=== PATIENT | female | born 1950 | race Caucasian/White ===

== ENCOUNTER → 2020-01-08 09:25 | Outpatient (BNVA) | payer MEDICARE, OTHER, SELFPAY | PROVIDERS: Family Provider Nurse Practitioner Family; Visit Provider Nurse Practitioner Family | DX: I10 Essential (primary) hypertension (principal); J01.40 Acute pansinusitis, unspecified; F41.8 Other specified anxiety disorders; E78.5 Hyperlipidemia, unspecified; M81.0 Age-related osteoporosis without current pathological fracture | CPT/HCPCS: 80053; 80061; 84443; 85025 ==

== ENCOUNTER → 2020-08-27 11:05 | Outpatient (BNVA) | payer MEDICARE, OTHER, SELFPAY | PROVIDERS: Family Provider Nurse Practitioner Family; PCP Nurse Practitioner Family; Visit Provider Nurse Practitioner | DX: R10.9 Unspecified abdominal pain (principal); I10 Essential (primary) hypertension; E78.5 Hyperlipidemia, unspecified; F41.8 Other specified anxiety disorders; Z87.891 Personal history of nicotine dependence | CPT/HCPCS: 71046; 74018; 80053; 80061; 82607; 84443; 85025 ==

== ENCOUNTER → 2020-08-29 09:22 | Outpatient (BNVA) | payer MEDICARE, OTHER, SELFPAY | PROVIDERS: Family Provider Nurse Practitioner Family; PCP Nurse Practitioner Family; Visit Provider Nurse Practitioner | DX: R73.9 Hyperglycemia, unspecified (principal); I10 Essential (primary) hypertension; R06.02 Shortness of breath; R60.9 Edema, unspecified; I35.0 Nonrheumatic aortic (valve) stenosis | CPT/HCPCS: 81003; 83036; 86705; 86706; 86709; 86803; 87340 ==

== ENCOUNTER → 2020-09-04 13:43 | Outpatient (BNVA) | payer MEDICARE, OTHER, SELFPAY | PROVIDERS: Family Provider Nurse Practitioner Family; PCP Nurse Practitioner Family; Referring Provider Nurse Practitioner; Visit Provider Internal Medicine | DX: E05.90 Thyrotoxicosis, unspecified without thyrotoxic crisis or storm (principal); M81.0 Age-related osteoporosis without current pathological fracture; R73.03 Prediabetes; R79.89 Other specified abnormal findings of blood chemistry | CPT/HCPCS: 99204 ==

== ENCOUNTER 2020-09-04 14:17 | Outpatient (CLI) | payer MEDICARE, OTHER, SELFPAY ==
[2020-09-04 15:33] LABS: Free T4 Free Thyroxine 4.29 ng/dL (0.82-1.77)
[2020-09-05 09:52] LABS: T3 Total 484 ng/dL (76-181)
[2020-09-05 15:51] LABS: Thyroglobulin AB <1 IU/mL (< or = 1); Thyroid Peroxidase Antobodies 2 IU/mL (<9)
[2020-09-10 22:38] LABS: TSH Receptor Binding Antibody 10.14 IU/L (< OR = 2.00)
== END 2020-09-04 14:18 | disposition home or self-care (01) ==
LOC: LAB 14:21
PROVIDERS: PCP Nurse Practitioner; Visit Provider Internal Medicine
DX: E05.90 Thyrotoxicosis, unspecified without thyrotoxic crisis or storm (principal); R79.89 Other specified abnormal findings of blood chemistry
CPT/HCPCS: 83516; 84439; 84480; 86376; 86800

== ENCOUNTER → 2020-09-09 14:27 | Outpatient (BNVA) | payer MEDICARE, OTHER, SELFPAY | PROVIDERS: PCP Nurse Practitioner; Visit Provider Nurse Practitioner | DX: R60.9 Edema, unspecified (principal); I35.0 Nonrheumatic aortic (valve) stenosis | CPT/HCPCS: 83880 ==

== ENCOUNTER 2020-09-10 09:28 | Outpatient (CLI) | payer MEDICARE, OTHER, SELFPAY ==
--- NOTE | 2020-09-10 | USCV_ITS ---
Bijal Alegria Age: 70 Gender: F : 1950 Exam Date: 09/10/2020 10:09 Ordering Phys: Juan Savage MD ([email or web address]) Technologist: Iliana Moreau Exam Location: [facility] [place] Indication: Nonrheumatic aortic valve stenosis BP: 131 / 83 HR: 74 Rhythm: Sinus Technical Quality: Adequate MEASUREMENTS (Male / Female) Normal Values 2D ECHO LV Diastolic Diameter PLAX 4.8 cm 4.2 - 5.9 / 3.9 - 5.3 cm LV Systolic Diameter PLAX 3.9 cm LV Chamber Size 5.2 cm IVS Diastolic Thickness 1.4 cm 0.6 - 1.0 / 0.6 - 0.9 cm IVS Systolic Thickness 1.6 cm LVPW Diastolic Thickness 1.0 cm 0.6 - 1.0 / 0.6 - 0.9 cm LVPW Systolic Thickness 1.2 cm RV Chamber Size 3.5 cm LVOT Diameter 2.0 cm LV Ejection Fraction 2D Teich 38.6 % LV Ejection Fraction MOD 2C 34.5 % LV Ejection Fraction 2C AL 34.9 % LA Diameter 4.3 cm LA Width 4.0 cm LA Height 4.1 cm RA Width 3.1 cm RA Height 4.0 cm Aorta at Sinotubular Diameter 1.8 cm M-MODE LV Diastolic Diameter MM 5.3 cm 4.2 - 5.9 / 3.9 - 5.3 cm LV Systolic Diameter MM 4.2 cm LV Ejection Fraction MM Teich 43.6 % IVS Diastolic Thickness MM 0.9 cm 0.6 - 1.0 / 0.6 - 0.9 cm IVS Systolic Thickness MM 1.1 cm LVPW Diastolic Thickness MM 1.5 cm 0.6 - 1.0 / 0.6 - 0.9 cm LVPW Systolic Thickness MM 1.9 cm RV Diastolic Diameter MM 1.7 cm Aortic Annulus Diameter 2.4 cm LA Ao Ratio MM 1.8 MV E Point Septal Separation 1.0 cm DOPPLER AV Peak Velocity 346.3 cm/s LVOT Peak Velocity 72.0 cm/s AV Area Cont Eq vti 0.6 cm squared AV Area Cont Eq pk 0.7 cm squared MV Area PHT 5.0 cm squared Mitral E to A Ratio 1.5 MV E' Velocity 66.0 cm/s Mitral E to MV E' Ratio 33.8 Mitral E to LV E' Lateral Ratio 29.9 Mitral E to LV E' Septal Ratio 38.9 TR Peak Velocity 250.5 cm/s TR Peak Gradient 25.1 mmHg TR Mean Velocity 153.9 cm/s TR Mean Gradient 10.2 mmHg TR Velocity Time Integral 64.8 cm TV Peak E Velocity 43.0 cm/s Right Atrial Pressure 8.0 mmHg Pulmonary Artery Systolic Pressu 33.1 mmHg PV Peak Velocity 60.0 cm/s RV Acceleration Time 0.1 s RV Ejection Time 0.3 s RV AcT/ET 0.2 FINDINGS Left Ventricle Mildly dilated left ventricular cavity. Moderate diffuse hypokinesia of the left ventricle with an ejection fraction of 38% Right Ventricle Normal RV size with a slightly diminished ejection fraction Right Atrium Mildly increased right atrial size. Left Atrium Moderately increased left atrial size. Mitral Valve Thickened mitral valve. Mild mitral annular calcification. Moderate mitral valve regurgitation. Aortic Valve Trace to mild aortic valve regurgitation. Multiple regurgitant jets Possibly severe low gradient aortic valve stenosis with a valve area of 0.7 cm squared. Peak velocity of 3.46 m/s. Tricuspid Valve Mild tricuspid valve regurgitation. Pulmonic Valve Mild pulmonary valve regurgitation. Pericardium No pericardial effusion. Aorta Possible large pleural effusion CONCLUSIONS Mildly dilated left ventricular cavity . Moderate diffuse hypokinesia of the left ventricle with an ejection fraction of 38%. Normal RV size with a slightly diminished ejection fraction. Mildly increased right atrial size. Moderately increased left atrial size. Thickened mitral valve. Mild mitral annular calcification. Moderate mitral valve regurgitation. Trace to mild aortic valve regurgitation. Multiple regurgitant jets Possibly severe low gradient aortic valve stenosis with a valve area of 0.7 cm squared. Peak velocity of 3.46 m/s. Mild tricuspid valve regurgitation. Mild pulmonary valve regurgitation. Estimated pulmonary artery peak systolic pressure of 33 mmHg There is no pericardial effusion. Possibly large left-sided pleural effusion There are no intracardiac masses. Compared to the study from 10/02/2019, there is worsening of the LV systolic function and development of pleural effusion Dr Juan Savage MD FACC (Electronically Signed) Final Date: 10 September 2020 18:47 S
== END 2020-09-10 09:29 | disposition home or self-care (01) ==
LOC: RAD 09:34
PROVIDERS: PCP Nurse Practitioner; Visit Provider Internal Medicine Cardiovascular Disease
DX: I08.3 Combined rheumatic disorders of mitral, aortic and tricuspid valves (principal)
CPT/HCPCS: 93306

== ENCOUNTER 2020-09-13 08:06 | Outpatient (CLI) | payer MEDICARE, OTHER, SELFPAY ==
[2020-09-13] MEDS: iohexol 300 mg/mL 50 mL Btl PO (09:22)
--- NOTE | 2020-09-13 09:30 | CT_ITS ---
WS: [id number] CT scan of the chest Without IV contrast, CT scan of the abdomen and pelvis without IV contrast and with oral contrast. Additional two-dimensional coronal and sagittal reconstruction was performed. Clinical Data: History smoking and abdomen pain with increase liver enzymes Comparison: None. DLP: 1345.[address] scans at [facility] use at least one of these dose optimization techniques: automat ed exposure control; mA and/or kV adjustment per patient size (includes targeted exams where dose is matched to clinical indication); or iterative reconstruction. Findings: Chest: Moderate bilateral pleural effusions are present. No nodules or masses are seen. The heart size is enlarged with a small pericardial effusion. There is coronary artery calcification and calcification in the wall of the thoracic aorta. No pneumonia or pneumothorax is seen. The pulmonary arterial system demonstrates no abnormalities or dilatations. There is no axillary or significant mediastinal adenopathy. Minimal osteoarthritis of the thoracic ve rtebral bodies is present. Abdomen/pelvis: . The gallbladder, spleen, adrenal glands and pancreas are normal. The liver is enlarged without cysts , masses or dilated intrahepatic ducts. The kidneys show no hydronephrosis, cysts, masses or renal calculi. The abdominal aorta is normal in size. No appendicitis or diverticulitis is seen. There are numerous sigmoid diverticula. Oral contrast is i n the stomach, small bowel and colon and there is no bowel dilatation. No abscess, adenopathy, ascite s, mass, obstruction or free air is seen. The bladder is unremarkable. The uterus is normal. No inguinal hernia is seen. The lumbar vertebral bodies show minimal osteoarthritic change. CT/CT chest abd pel wo con Impression: 1. Moderate bilateral pleural effusions. 2. Cardiomegaly with small pericardial effusion. 3. Hepatomegaly. 4. Negative for acute intra-abdominal or pelvic abnormalities.
== END 2020-09-13 08:07 | disposition home or self-care (01) ==
LOC: RADWPI 08:11
PROVIDERS: PCP Nurse Practitioner; Visit Provider Nurse Practitioner
DX: R10.9 Unspecified abdominal pain (principal); Z87.891 Personal history of nicotine dependence; J90 Pleural effusion, not elsewhere classified; I51.7 Cardiomegaly; R16.0 Hepatomegaly, not elsewhere classified
CPT/HCPCS: 71250; 74176; Q9967

== ENCOUNTER 2020-09-13 09:36 | Outpatient (CLI) | payer MEDICARE, OTHER, SELFPAY ==
--- NOTE | 2020-09-13 09:41 | XR_ITS ---
WS: [id number] PA and lateral chest, 09/13/2020 Clinical Data: pleural effusion Comparison: PA and lateral chest, 08/27/2020. Findings: There are moderate bilateral pleural effusions which have developed since the last chest x- ray. The heart is enlarged. The aortic arch and descending aorta show calcification and tortuosity. N o nodules or masses are seen. The pulmonary vascularity is not increased. No pneumonia is present. No pneumothorax is seen. XR/XR chest 2V* [id number] Impression: 1. Cardiomegaly. 2. Moderate bilateral pleural effusions.
== END 2020-09-13 09:37 | disposition home or self-care (01) ==
LOC: RADWPI 09:40
PROVIDERS: PCP Nurse Practitioner; Visit Provider Internal Medicine Cardiovascular Disease
DX: I51.7 Cardiomegaly (principal); J90 Pleural effusion, not elsewhere classified
CPT/HCPCS: 71046

== ENCOUNTER → 2020-09-17 11:50 | Outpatient (BNVA) | payer MEDICARE, OTHER, SELFPAY | PROVIDERS: Family Provider Nurse Practitioner Family; PCP Family Medicine; Visit Provider Internal Medicine Cardiovascular Disease | DX: I50.33 Acute on chronic diastolic (congestive) heart failure (principal); I11.0 Hypertensive heart disease with heart failure; I43 Cardiomyopathy in diseases classified elsewhere; R60.9 Edema, unspecified | CPT/HCPCS: 80048; 83880 ==

== ENCOUNTER → 2020-09-19 15:56 | Outpatient (BNVA) | payer MEDICARE, OTHER, SELFPAY | PROVIDERS: PCP Nurse Practitioner; Visit Provider Internal Medicine Cardiovascular Disease | DX: Z11.59 Encounter for screening for other viral diseases (principal) | CPT/HCPCS: 87635 ==

== ENCOUNTER 2020-09-23 09:24 | Observation (INO) | payer MEDICARE, OTHER, SELFPAY ==
[2020-09-19 15:38] LABS: Basophils % 0.7 %; Eosinophils # 0.3 10^3/uL (0.0-0.8); Eosinophils % 5.3 %; Hemoglobin 11.4 g/dL (11.5-15.3); Lymphocytes # 2.3 10^3/uL (0.8-4.8); Lymphocytes % 39.6 %; Mean Corpuscular HGB Conc 30.8 g/dL (30.0-36.0); Mean Corpuscular Hemoglobin 29.2 pg (28.0-34.0); Mean Corpuscular Volume 94.6 fL (81-99); Mean Platelet Volume 10.7 fL (7.4-10.4); Monocytes # 0.5 10^3/uL (0.2-0.9); Monocytes % 9.1 %; Neutrophils # 2.58 10^3/uL (1.8-7.7); Neutrophils % 45.3 %; Nucleated Red Blood Cells % 0 %; Platelet Count 258 10^3/cmm (130-400); Red Blood Count 3.91 10^6/uL (4.1-5.3); Red Cell Distribution Width 13.7 % (12.1-15.1); White Blood Count 5.7 10^3/uL (4.0-10.0)
[2020-09-19 15:55] LABS: Anion Gap 14.7 (5-19); Blood Urea Nitrogen 17 mg/dL (8-23); Calcium 8.8 mg/dL (8.5-10.5); Carbon Dioxide 25 mmol/L (22-29); Chloride 106 mmol/L (98-107); Glomerular Filtration Rate 122.7 mL/min (90-130); Glucose 108 mg/dL (65-115); Osmolality Calculated 296 mOsm/kg (285-295); Potassium 3.7 mmol/L (3.5-5.1); Sodium 142 mmol/L (136-145)
[2020-09-23] VITALS (72 sets, daily range): BP systolic 89–176; BP diastolic 51–112; PULSE 50–121; RESP 10–33; TEMP 36.4–37; O2SAT 87–97; BMI 22.0
--- NOTE | 2020-09-23 06:00 | XACV_ITS ---
Ht: 152 cm Wt: 51 kg BSA: 1.48 m2 Gender: Female : 1950 Any Known Allergies: Ibuprofen Exam Priority: Routine Procedure(s): Procedure Description: Diagnostic procedure Procedure Description: PCI procedure Procedure Description: Left Heart Catheterization Procedure Description: Right Heart Catheterization Procedure Description: Left ventriculography Procedure Description: Cardiac Output Procedure Description: O2 saturation Procedure Description: Drug Eluting Coronary Stent Procedure Description: PTCA Procedure Description: Miscellaneous Procedure Description: ACT Procedure Description: Coronary Angiography Procedure Description: Pressure Wire Diagnostic Cath Status: Elective Diagnostic Findings * The left main is a medium caliber vessel with calcification at the ostium causing around 20% narrowing. * The left anterior descending artery is a medium caliber vessel which appears to wrap around the LV apex minimally. Near to the apex, the artery appears to trifurcate. There is a 60 to 70% narrowing at the ostium of all the trifurcation vessels. The first diagonal branch was found to have around 40% ostial narrowing. Minimal intimal irregularities are noted at the mid to distal segment of the left anterior descending artery. * The left circumflex artery is a medium caliber co-dominant vessel which was found to have mild diffuse intimal irregularities in the mid segment. The first obtuse marginal artery was found to have around 90% ostial narrowing. No other significant stenotic lesions were seen. * The right coronary artery is a medium caliber codominant vessel which was found to have around 80% lesion at the mid segment. Rest of the vessel was found to have mild diffuse intimal irregularities. PCI Indication: New Onset Angina <= 2 months Interventional Findings * First Obtuse Marginal Branch Segment: 90% stenosis treated with AB MINI TREK 2.00X8 RX BALLOON and MDT R KIM 2.25X8 WILMER. 0% residual stenosis, DALIA: 3 flow. * Mid Right Coronary Artery: 80% stenosis treated with AB MINI TREK 2.00X12 RX BALLOON and MDT R KIM 2.75X15 WILMER. 0% residual stenosis, DALIA: 3 flow. Conclusions 1. This is a 70-year-old white female with history of hypertension, presents with progressive shortness of breath. She was found to have severe low gradient aortic valve stenosis with a valve area of 0.7 cm2. Her LV ejection fraction was around 38% by echocardiogram. In view of the aortic valve stenosis, LV dysfunction and congestive heart failure, in order to further evaluate her cardiovascular status, a right and left heart catheterization with right and left coronary angiogram was recommended. The findings are as follows. 2. The left main was found to have a around 20% eccentric ostial narrowing with calcification. The first obtuse marginal branch was found to have around 90% ostial narrowing. The codominant right coronary artery was found to have around 80% lesion at the mid segment. Mild diffuse disease was noted in the other vessels. 3. Right heart catheterization revealed a pulmonary hypertension- PA pressure of 56/20 with a mean of 32 mmHg. The right atrial pressure was 7. The cardiac output by Lin's was 2.45 with an index of 1.7. The LVEDP was 37. The mean gradient across the aortic valve was 28. The peak to peak gradient was 12 mmHg. 4. I discussed and reviewed the cardiac catheterization data with the Dr. Dillard. It was thought to be appropriate to consider PCI of the obtuse marginal and the right coronary artery lesions. We may reevaluate the aortic valve at a later time to decide on further management. 5. First Obtuse Marginal Branch Segment was treated with Balloon and Drug Eluting Stent. 6. Mid Right Coronary Artery was treated with Balloon and Drug Eluting Stent. Recommendations * 1-Return to inpatient for close monitoring and routine cath care 2-Risk factor modification for secondary prevention 3-Statin and aspirin 81 mg life--long, if tolerated 4-Patient was pre-loaded with 600 mg of Plavix, continue Plavix 75mg p.o. daily for at least one year. We will assess at the end of one year again to continue if further or not 5-Continue optimal medical management 6-Follow up with Dr. Savage in four weeks and your primary care in 10 days. Diagnostic RX Recommendation: PCI w/o planned CABG LV EDP: 37 mmHg Left Ventriculography Findings: * LV gram was not performed. Ejection fraction was around 38% by echocardiogram. Pressures Phase:Rest AO : 133 / 61 ( 90 ) @ 2:43:00 AM 142 / 94 ( 88 ) @ 2:44:00 AM 177 / 77 ( 112 ) @ 2:52:00 AM 178 / 70 ( 112 ) @ 2:52:00 AM 147 / 76 ( 109 ) @ 2:53:00 AM 177 / 80 ( 114 ) @ 3:22:00 AM 109 / 57 ( 77 ) @ 3:40:00 AM 140 / 66 ( 93 ) @ 3:58:00 AM 141 / 83 ( 107 ) @ 4:04:00 AM LV : 187 / 11 / @ 2:51:00 AM 188 / 12 / @ 2:52:00 AM RV : 53 / 1 / @ 2:33:00 AM PA : 56 / 20 ( 32 ) @ 2:32:00 AM RA : a wave = v wave = mean = 7 @ 2:34:00 AM Hemodynamic Findings The pulmonary capillary wedge pressure was 22. PA pressure was 56/20 with a mean of 32. RV pressure was 53 the right atrial pressure was 7. The cardiac output by Lin's was 2.45 with an index of 1.7. The aortic peak to peak gradient was 12 with a mean gradient of 28 mmHg. O2 Content Phase:Rest PA : O2 Content O2: 47.3 @ 2:43:00 AM Saturations Phase:Rest AO : 84 @ 2:52:00 AM RA : 51 @ 2:52:00 AM RV : 50 @ 2:44:00 AM PA : 47 @ 2:43:00 AM Cardiac Output Phase:Rest Lin : 2 @ 2:43:00 AM Lin Cardiac Index: 2 @ 2:43:00 AM Valves Phase:DefaultPhase AV : 12.0 @ 9:18:56 AM AV Mean Gradient: 28.0 @ 9:18:56 AM Clinical Evaluation EBL: 5mL-10mL Procedural Details Procedure Consent Obtained. Pre-Procedure Time Out. Identified patient by full name and date of as verbalized by the patient/guarantor. Does the consent match the physician's order: Yes. Accurate & Complete Informed Consent: Yes. Inpatient/Outpatient History & Physical on Chart: Yes. If H&P is completed, is and addenduem needed: N/A; If yes, is the addendum complete: N/A. Visualize and Verify Site with Patient/Guarantor: N/A. Relevant Radiology Images available: Yes. Pre-op teaching completed and patient verbalized understanding. The risks, benefits, and alternatives of sedation and/or procedure were discussed by physician. The patient agrees to continue. Procedure started. Correct patient, site and procedure confirmed by cath team. PERRLA. Strong, equal hand offc spec bilaterally. Lungs clear x 5 lobes. IV Site on Arrival: 18 gauge in the left anticubital. IV Fluids: 0.9% NaCl at KVO. 0 mL infused prior to field laborer. Pre Procedural Pulses: bilateral dorsalis pedis was 2+. Pre Procedural Pulses: left dorsalis pedis was Doppled. Pre Procedural Pulses: right posterior tibial was 2+. Pre Procedural Pulses: bilateral radial was 3+. right groin was prepped with chloroprep then draped in the usual sterile fashion. right radial was prepped with chloroprep then draped in the usual sterile fashion. Physician notified. Baseline sample Acquired. HR: 74 BPM. Equipment: 5F - Radial. Cardiac Cath Pack. ACCorkCRM Manifold Kit Model BT 2000. Heparinized Saline (2 units/mL), 1000 mL bag. Physician arrived. right brachial was prepped with chloroprep then draped in the usual sterile fashion. Physician scrubbed in. Immediate Pre-Procedure Time Out. Correct Patient: Yes; Correct Procedure: Yes; Correct Site: Yes; Correct Patient Position: Yes; Correct Supplies: Yes; Dried Flammable Prep: Yes; Blood Products Available: N/A;. Lidocaine 1% infiltrated to the right groin. Venous access obtained with a micropuncture set. [place]-Flory MON catheter inserted. Inventory is ADILSON Ji Angled .025 180cm. .025 wire inserted. wire out. Oximetry samples were obtained. Normal venous range: 60-85%. Normal arterial range: 95-100%. Pressure measurements obtained. [place]-Flory out. Lidocaine 1% infiltrated to the right radial. Arterial access obtained. A 5 st helenian TIG catheter in over wire. 3 lpm nc placed on pt. Multiple views taken of left coronary artery. Catheter redirected to the RCA. Catheter out. A 5 st helenian JR4 catheter in over wire. Patient's family updated. EDP Sample taken: LV 187/11,37; HR: 73 BPM; SpO2: 91%. Pullback taken: LV 188/12,38; AO 177/77(112); Mean: 28mmHg, Peak to Peak: 12mmHg, SEP: 21sec/min; HR: 74 BPM; SpO2: 92%. Dr. Dillard called. Multiple views taken of right coronary artery. Catheter out. Side port of sheath flushed with Normal Saline to maintain patency. Dr. Dillard arrived. A Suture was successful obtaining hemostatsis at the Right Femoral vein insertion site. Inventory is Cvent XT .[address] 190[address] Str. Guidewire. Dr. Dillard scrubbed in to perform intervention. Patient's family updated. 6 st helenian JR 4 SH guide catheter was inserted over the wire. ACT drawn. Results 182 seconds. Therapeutic limits - pre-heparin administration 90-150 seconds and monitoring heparin during a vascular procedure >250 seconds. Multiple views taken of right coronary artery. [place] guidewire was advanced through the guide catheter to lesion in the mid RCA. Inflation number : 1 A AB MINI TREK 2.00X12 RX BALLOON was prepped and advanced across the Mid RCA , then inflated to 14 ZARINA for 0:20 seconds. Balloon out. Inflation Number : 2 A MDT R KIM 2.75X15 WILMER -Lot Number# [id number] exp 06-11-2022 was prepped and advanced across the Mid RCA. The stent was deployed at 12 ZARINA for 0:17 seconds. Stent balloon out over wire. Results checked. Wire out. Guide catheter out. 6 st helenian XB 3 guide catheter was inserted over the wire. ACT drawn. Results 408 seconds. Therapeutic limits - pre-heparin administration 90-150 seconds and monitoring heparin during a vascular procedure >250 seconds. Multiple views taken of left coronary artery. [place] guidewire was advanced through the guide catheter to lesion in the OM. Unable to cross lesion, guidewire removed. Inventory is TR 180cm Runthrough NS extra floppy 0.014 wire. Runthrough guidewire was advanced through the guide catheter to lesion in the OM. Unable to cross lesion, guidewire removed. BMW guidewire was advanced through the guide catheter to lesion in the OM. Inventory is AB BMW Guide Wire .014 190cm. Multiple views taken of left coronary artery. Inflation number : 1 A AB MINI TREK 2.00X8 RX BALLOON was prepped and advanced across the 1st Ob Yessica , then inflated to 14 ZARINA for 0:24 seconds. Balloon out. Inflation Number : 2 A T R KIM 2.25X8 WILMER -Lot Number# [id number] exp 04-24-2021 was prepped and advanced across the 1st Ob Yessica. The stent was deployed at 12 ZARINA for 0:19 seconds. Stent balloon and wire out. Results checked. Guide catheter out. A TR Band was successful obtaining hemostatsis at the Right Radial artery insertion site. TR band placed. Hemostasis obtained. Sheath(s) sutured into position with 2-0 silk and sterile 4x4's and Op-site applied over the site. No oozing or signs and symptoms of hematoma noted. Post Procedure: Pulses reassessed and unchanged. PERRLA. Strong, equal hand offc spec bilaterally. No VTE prophylaxis required. Total IV fluids: 500 mL. Fluoro: 29:07. Contrast type used: Omnipaque 300 mgI/mL, 500 mL bottle. [id number]. Complications: none. Estimated blood loss: 5mL-10mL. Procedure completed. PCI Indication: New Onset Angina. [facility] Clinical Fraility Score: 4: Vulnerable. Materials Engineering Technician Indications: Worsening Angina. Chest Pain Symptom Assessment: Atypical Angina. Cardiovascular Instability: No. Post-op diagnosis: 2 vessel CAD. Medication's Wasted: Lidocaine 1% = 18 mL. Medication's Wasted: Nitro = 49.6 mg. Medication's Wasted: Heparin = 3000 units. Patient transferred by bed to 1st floor. Vital chart was stopped. Access Site Site: Right Femoral vein Sheath Size: 6 Fr Hemostasis Method: Suture Hemostasis Success: Successful Site: Right Radial artery Sheath Size: 6 Fr Hemostasis Method: TR Band Hemostasis Success: Successful Procedure Medications Start: 7:23 AM Stop: 7:23 AM Medication: Versed Amount: 1 mg Route: I.V. Start: 7:23 AM Stop: 7:23 AM Medication: Fentanyl Amount: 50 mcg Route: I.V. Start: 7:26 AM Stop: 7:26 AM Medication: 0.9% Saline Amount: 250 ml Route: I.V. bolus Start: 7:41 AM Stop: 7:41 AM Medication: Verapamil Amount: 5 mg Route: I.A. Start: 7:41 AM Stop: 7:41 AM Medication: Nitrogylcerin Amount: 200 mcg Route: I.A. Start: 7:42 AM Stop: 7:42 AM Medication: 0.9% Saline Amount: 125 ml/hr Route: I.V. drip Start: 7:49 AM Stop: 7:49 AM Medication: Heparin Amount: 5000 units Route: I.V. Start: 8:22 AM Stop: 8:22 AM Medication: Versed Amount: 1 mg Route: I.V. Start: 8:22 AM Stop: 8:22 AM Medication: Fentanyl Amount: 50 mcg Route: I.V. Start: 8:26 AM Stop: 8:26 AM Medication: Heparin Amount: 3000 units Route: I.V. Start: 8:30 AM Stop: 8:30 AM Medication: Aggrastat 12.5 mg/250 mL Amount: 26 ml Route: I.V. bolus Start: 8:31 AM Stop: 8:31 AM Medication: Aggrastat 12.5 mg/250 mL Amount: 9.4 ml/hr Route: I.V. drip Start: 8:58 AM Stop: 8:58 AM Medication: Nitrogylcerin Amount: 200 mcg Route: I.C. Start: 9:11 AM Stop: 9:11 AM Medication: Plavix Amount: 600 mg Route: P.O. I, the attending physician, have reviewed and verified all procedure medications. Yes, all medications given per verbal order History/Risk Factors Hypertension: Yes Dyslipidemia: Yes Peripheral Arterial Disease (PAD): No Myocardial Infarction (NV): No Obesity: No Renal Disease: No Tobacco Use: Current/Recent(w/in 1 year) Prior Interventions PCI: No CABG: No Valve Surgery: No Report Signatures Interventional Workflow Finalized by Yoan Dillard MD on 10/07/2020 04:39 PM Diagnostic Workflow Finalized by Dr Juan Savage MD [facility] on 09/23/2020 10:00 AM
[2020-09-23] MEDS: diphenhydrAMINE 50 mg Capsule PO (06:26)
--- NOTE | 2020-09-23 07:17 | P.HPUD_ITS ---
Surgery/Procedure H&P Update DATE OF PROCEDURE: September 23, 2020 DATE H&P PERFORMED: 09/17/20 H&P UPDATE INFORMATION: I have reviewed H&P completed within last 30 days, I have examined patient prior to procedure and No changes to prior documentation PREOP DIAGNOSIS: Cardiomyopathy, congestive heart failure, severe PLANNED PROCEDURE: Operation Date: 09/23/20 07:00 Proposed Procedures p Cardiac Catheterization(Bilateral) - Juan Savage MD PATIENT REASSESSED PRIOR TO SEDATION, WITH NO CHANGE NOTED: Yes PHYSICAL EXAM: alert AIRWAY EVAL/ANESTHESIA PLAN: normal airway, see other exam findings, ASA III, Monitored Anesthesia, Local Anesthesia, Risks, benefits & alternatives of sed ation and/or procedure discussed and Patient agrees to continue as planned
--- NOTE | 2020-09-23 10:43 | PC.NURSE ---
[address] Savage with concerns there was no orders or instructions for venous sheath removal instructions from Dr Savage obtain PTT and pull when you can
[2020-09-23 12:04] LABS: Chol HDL Ratio 5.03 mg/dL (0.0-4.40); Cholesterol 191 mg/dL (0-200); HDL Cholesterol 38 mg/dL (60-100); LDL Cholesterol Calculated 134 mg/dL (50-129); LDL HDL Ratio 3.53 RATIO (0.00-3.22); Triglycerides 95 mg/dL (0-150)
[2020-09-23 12:05] LABS: Partial Thromboplastin Time 96.8 SECONDS (23.9-36.7)
[2020-09-23] MEDS: fentaNYL 50 mcg/mL INJ 2mL IVP (14:08)
--- NOTE | 2020-09-23 14:49 | PC.NURSE ---
1322 sheath removal via instructions in previous RN noted sheath removed no hematoma noted pressure held for 20 min continued to have no outward signs of bleeding or other adverse events for 2 min patient assisted with rolling for linen change and upon rolling patient back to supine from log roll patient reported pain in her leg site observed and noted hematoma formation, pressure held for another 15 min hematoma becoming soft patient had episode of vomiting during hold. patient noted pain had became better and continued with linen change site checked again noted to have become hard once again pressure held Dr Savage notified of events and came to bedside Dr Savage holding pressure for and additional 5-[address] Savage to give PRN IVP fentanyl x1 for pain now also verbal instructions given to start IV fluids patient IV found to be occluded upon flushing and prior to administration of pain medication a new IV was obtained x1 attempt other RN called to bedside to take over pressure hold instructed by Dr Savage to hold pressure and additional [address] a 10lb sand bag for 1 hour checking site often for s/s of bleeding. Call to Dr Savage to clarify orders for IV fluid instructions to IV fluid Normal saline at 100ml/hr for 1000 ml then KVO call in 1 hour with status update.
--- NOTE | 2020-09-23 15:46 | PC.NURSE ---
Contacted Dr. Savage with patient status up date and concerns of given due dose of propanolol due to patients HR instructions given to apply pressure dressing to groin; hold dose of propanolol for 1 hour more and if sys blood pressure remains 140 or greater give dose then.
[2020-09-23] MEDS: sodium chloride 0.9% 1,000 ML 100 ML IV (16:38)
[2020-09-23] MEDS: propranolol 20 mg Tablet 10 MG PO ×2 (16:40→20:58)
[2020-09-23] MEDS: methIMAzole 5 MG Tablet PO (17:41)
--- NOTE | 2020-09-23 19:30 | PC.NURSE ---
Rounding: PAtient resting in bed. Alert and oriented. PAtient denies any pain or needs at this time. Pressure dressing in place to R groin. Dressing in place to R wrist clean dry intact no Hematoma noted.
[2020-09-23] MEDS: atorvastatin 40 mg Tablet PO (20:58)
[2020-09-24 00:29] VITALS: BP 141/83; PULSE 78; RESP 25; TEMP 36.6; O2SAT 92
[2020-09-24] MEDS: sodium chloride 0.9% 1,000 ML 30 ML IV (02:21)
[2020-09-24 04:53] VITALS: BP 164/87; PULSE 87; RESP 26; TEMP 36.6; O2SAT 96
[2020-09-24 04:58] LABS: Basophils # 0.1 10^3/uL (0.0-0.1); Basophils % 0.6 %; Eosinophils # 0.4 10^3/uL (0.0-0.8); Hematocrit 36.6 % (37.0-47.0); Hemoglobin 11.4 g/dL (11.5-15.3); Lymphocytes % 33.5 %; Mean Corpuscular HGB Conc 31.1 g/dL (30.0-36.0); Mean Corpuscular Hemoglobin 29.4 pg (28.0-34.0); Mean Corpuscular Volume 94.3 fL (81-99); Mean Platelet Volume 11.1 fL (7.4-10.4); Monocytes # 0.5 10^3/uL (0.2-0.9); Monocytes % 5.5 %; Neutrophils % 55.2 %; Nucleated Red Blood Cells % 0 %; Platelet Count 288 10^3/cmm (130-400); Red Blood Count 3.88 10^6/uL (4.1-5.3); Red Cell Distribution Width 13.8 % (12.1-15.1); White Blood Count 8.9 10^3/uL (4.0-10.0)
--- NOTE | 2020-09-24 05:23 | PC.NURSE ---
END of shift: Patient has rested off and on. Patient has ambulated and site is clean dry and intact. Patient denies any pain. Vitals are stable.
[2020-09-24 05:36] LABS: Blood Urea Nitrogen 17 mg/dL (8-23); Calcium 9.2 mg/dL (8.5-10.5); Carbon Dioxide 22 mmol/L (22-29); Chloride 106 mmol/L (98-107); Glomerular Filtration Rate 122.7 mL/min (90-130); Glucose 102 mg/dL (65-115); Osmolality Calculated 288 mOsm/kg (285-295); Sodium 138 mmol/L (136-145)
[2020-09-24] MEDS: FUROsemide 40 mg Tablet PO (06:08)
[2020-09-24 06:45] LABS: Anion Gap 13.4 (5-19); Potassium 3.4 mmol/L (3.5-5.1)
[2020-09-24 07:14] VITALS: BP 134/70; PULSE 68; RESP 18; TEMP 36.8; O2SAT 93
--- NOTE | 2020-09-24 09:18 | PC.CHAP ---
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 [] Patient/Family/Request visit [] Outpatient visit [] Follow-up visit [] Physician referral [] Code/Alert [x] Routine visit [] Staff referral [] Actively dying [] Patient sleeping [] Family support [] [] Out of room [] Palliative care [] [] Receiving care in room [] Pre-surgical visit [] Trauma [] Long length of stay [] ICU visit [] Other: Relational/Emotional Strength [] Patient feels connected with others/family/visitors/staff [] Distress [] Loneliness/isolation [] Abandonment Spirituality of Patient [] Person of Kristi [] Attends Congregational of their Kristi [] Believes in Prayer [] Reads Bible or Confucianism materials [] There are Spiritual issues to be addressed Electrocardiograph Operator Interventions [x] Prayer [x] Active listening [x] Non-anxious presence [x] Spiritual/emotional support [] Crisis/trauma care [] Spiritual counseling [] Bereavement support [] Provided bereavement packet [] Provided Bible/devotional materials [] Provided toy/stuffed animal, coloring book to patient or family member [] Provided Communion [] Anointing/[place] [] Salvation [x] Completed spiritual assessment [] Other: Impact on Illness or Injury [] Angry [] Fearful [] Anxious [] Often cries [] Exhaustion [] Unable to work [] Unable to attend oriental orthodox [] Unable to walk/stand [] Unable to read [] Unable to drive [] Unable to eat/drink [] Unable to sleep [] Unable to be with family [] Patient intubated [] Other: Summary patient dressed ready to go home... feels so much better Time spent with patient 10 min
--- NOTE | 2020-09-24 09:21 | PC.NURSE ---
patient reports itching patient feels that the gown might be causing her to itch patient assisted with dressing in her own clothes a few moments later patient report itching has increase and a noted rash across entire mid section Dr Savage notified of events instructions given to give 25mg of Benadryl IVP x1 and await to give medications until he can assess patient and chart
[2020-09-24] MEDS: diphenhydrAMINE 50 mg/mL SDV 1mL 25 MG IVP (09:38)
--- NOTE | 2020-09-24 09:54 | PC.NURSE ---
Dr Savage at bedside for assessment verbal instructions given to give 40 mg solu medrol IVP also some orders change instructions given start plavix 75 mg daily starting now dc current orders for aspirin 325 and aspirin 81 mg DC agrostat Start aspirin 162 mg daily decrease losartan dose to 25 mg daily Hold medications for 1 hour after solumedrol administration if rash is fading okayed to given morning meds then if no change in rash call with status update
--- NOTE | 2020-09-24 11:35 | PC.NURSE ---
call from Dr Savage to check on patient reported patient rash is looking better and the itching has decreased also the administration was late on the solumedrol instructions to wait until noon to give morning medications
[2020-09-24 11:44] VITALS: BP 176/88; PULSE 80; RESP 20; TEMP 36.8; O2SAT 95
[2020-09-24] MEDS: fluoxetine 20 mg Capsule PO (12:29)
[2020-09-24] MEDS: potassium chloride ER 10 mEq Tablet PO (12:29)
[2020-09-24] MEDS: methIMAzole 5 MG Tablet PO (12:29)
[2020-09-24] MEDS: propranolol 20 mg Tablet 10 MG PO (12:29)
[2020-09-24] MEDS: levothyroxine 25 mcg Tablet PO (12:29)
[2020-09-24] MEDS: losartan 50 mg Tablet 25 MG PO (12:29)
[2020-09-24] MEDS: aspirin 81 mg EC Tablet 162 MG PO (12:35)
[2020-09-24] MEDS: clopidogrel 75 mg Tablet PO (12:35)
[2020-09-24 13:17] VITALS: PULSE 82; O2SAT 93
--- NOTE | 2020-09-24 15:04 | PM.PN ---
Subjective Subjective: Interval history: Ms. Dsouza underwent a cardiac arrest that yesterday. She had a PCI of the right coronary artery and the obtuse marginal 1 artery. She had an uneventful postprocedure course. Her mean gradient across aortic valve was found to be 28 mmHg. He had a high LVEDP. She was admitted to the hospital for IV hydration. She developed a small hematoma at the venous access site which was resolved with compression. She did have any hematoma or bleeding from the radial arterial pressure site. Medications: Reviewed: Yes Medication Review Details: Current Medications Acetaminophen (Tylenol) 650 mg PO Q6H PRN PRN Reason: MILD PAIN Al Hydrox/Mg Hydrox/Simethicone (Maalox) 30 ml PO Q15M PRN PRN Reason: INDIGESTION Alprazolam (Xanax) 0.25 mg PO TID PRN PRN Reason: ANXIETY Aspirin (Aspirin Ec) 162 mg PO DAILY [facility] Last Admin: 09/24/20 12:35 Dose: 162 mg Documented by: Atorvastatin Calcium (Lipitor) 40 mg PO BEDTIME [facility] Last Admin: 09/23/20 20:58 Dose: 40 mg Documented by: Atropine Sulfate (Atropine) 0.5 mg IVP PRN PRN PRN Reason: Symptomatic bradycardia Fentanyl (Sublimaze) 50 mcg IVP PRN PRN PRN Reason: Prior to sheath removal Last Admin: 09/23/20 14:08 Dose: 50 mcg Documented by: Fluoxetine HCl (Prozac) 20 mg PO DAILY [facility] Last Admin: 09/24/20 12:29 Dose: 20 mg Documented by: Furosemide (Lasix) 40 mg PO QAM [facility] Last Admin: 09/24/20 06:08 Dose: 40 mg Documented by: Sodium Chloride (Sodium Chloride 0.9%) 1,000 mls @ 30 mls/hr IV .Q24H [facility] Last Admin: 09/24/20 02:21 Dose: 30 mls/hr Documented by: Levothyroxine Sodium (Synthroid) 25 mcg PO DAILY [facility] Last Admin: 09/24/20 12:29 Dose: 25 mcg Documented by: Losartan Potassium (Cozaar) 25 mg PO DAILY [facility] Last Admin: 09/24/20 12:29 Dose: 25 mg Documented by: Magnesium Hydroxide (Milk Of Magnesia) 30 ml PO DAILY PRN PRN Reason: CONSTIPATION Methimazole (Tapazole) 5 mg PO BID [facility] Last Admin: 09/24/20 12:29 Dose: 5 mg Documented by: Naloxone HCl (Narcan) 0.1 mg IVP Q2M PRN PRN Reason: RESPIRATORY RATE < 8/MIN Nitroglycerin (Nitrostat) 0.4 mg SUBLINGUAL Q5M PRN PRN Reason: CHEST PAIN Potassium Chloride (Klor-Con 10) 10 meq PO DAILY [facility] Last Admin: 09/24/20 12:29 Dose: 10 meq Documented by: Propranolol HCl (Inderal) 10 mg PO TID [facility] Last Admin: 09/24/20 12:29 Dose: 10 mg Documented by: Temazepam (Restoril) 15 mg PO BEDTIME PRN PRN Reason: INSOMNIA Vitals/I&O/Wt Last Vital Signs Temp 98.2 F 09/24/20 11:44 Pulse 82 09/24/20 13:17 Resp 20 H 09/24/20 11:44 BP 176/88 09/24/20 11:44 Pulse Ox 93 09/24/20 13:17 09/24/20 09/24/20 09/24/20 06:59 14:59 22:59 Intake Total 100 / 100 Balance 100 / 100 Weight last 48 hrs Weight 113 lb Physical Exam Narrative: EXAM NARRATIVE: GENERAL: The patient is alert and oriented times three. Not in any acute distress. HEENT: No significant pallor, icterus or lymphadenopathy.Oral cavity: There are no mucous membrane lesions. NECK: Trachea appears to be central. No masses noted. No JVD or thyromegaly appreciated. RESPIRATORY: Chest is symmetrical. No intercostals muscle retraction or any accessory muscle activation. There is no chest wall tenderness. Breath sounds are heard bilaterally. No rales or rhonchi heard. No evidence of any consolidation. BREASTS: Deferred. HEART: The heart sounds are normal. No S3 or S4. Ejection systolic murmur of grade 4/6 aortic area. No diastolic murmurs. No pericardial rub ABDOMEN: No vessel pulsations or distention. No tenderness. No organomegaly appreciated. Bowel sounds are normally heard. : Deferred. RECTAL: Deferred. LYMPHATIC: No lymphadenopathy noted in the neck or groin. EXTREMITIES: No hematoma the right groin. Good radial pulse on the right side. No edema or cyanosis. No clubbing. Peripheral pulses are palpated in fairly good volume and amplitude MUSCULOSKELETAL: No acute joint deformities or swelling SKIN: There are no significant rashes or ecchymosis NEUROPSYCHIATRIC: The patient is alert and oriented x3. Appears to be in a good mood. No tremors or rigidity noted. Data : 09/24/20 04:15 09/24/20 04:15 Other Labs: Laboratory Last Values WBC 8.9 10^3/uL (4.0-10.0) 09/24/20 04:15 RBC 3.88 10^6/uL (4.1-5.3) L 09/24/20 04:15 Hgb 11.4 g/dL (11.5-15.3) L 09/24/20 04:15 Hct 36.6 % (37.0-47.0) L 09/24/20 04:15 MCV 94.3 fL (81-99) 09/24/20 04:15 MCH 29.4 pg (28.0-34.0) 09/24/20 04:15 MCHC 31.1 g/dL (30.0-36.0) 09/24/20 04:15 RDW 13.8 % (12.1-15.1) 09/24/20 04:15 Plt Count 288 10^3/cmm (130-400) 09/24/20 04:15 MPV 11.1 fL (7.4-10.4) H 09/24/20 04:15 Neut % (Auto) 55.2 % 09/24/20 04:15 Lymph % (Auto) 33.5 % 09/24/20 04:15 [place] % (Auto) 5.5 % 09/24/20 04:15 Eos % (Auto) 5.0 % 09/24/20 04:15 Baso % (Auto) 0.6 % 09/24/20 04:15 Neut # (Auto) 4.90 10^3/uL (1.8-7.7) 09/24/20 04:15 Lymph # (Auto) 3.0 10^3/uL (0.8-4.8) 09/24/20 04:15 [place] # (Auto) 0.5 10^3/uL (0.2-0.9) 09/24/20 04:15 Eos # (Auto) 0.4 10^3/uL (0.0-0.8) 09/24/20 04:15 Baso # (Auto) 0.1 10^3/uL (0.0-0.1) 09/24/20 04:15 Nucleated RBC % (auto) 0 % 09/24/20 04:15 Nucleated RBCs # 0.0 /100WBC 09/24/20 04:15 APTT 96.8 SECONDS (23.9-36.7) H 09/23/20 11:29 Sodium 138 mmol/L (136-145) 09/24/20 04:15 Potassium 3.4 mmol/L (3.5-5.1) L 09/24/20 04:15 Chloride 106 mmol/L (98-107) 09/24/20 04:15 Carbon Dioxide 22 mmol/L (22-29) 09/24/20 04:15 Anion Gap 13.4 (5-19) 09/24/20 04:15 BUN 17 mg/dL (8-23) 09/24/20 04:15 Creatinine 0.5 mg/dL (0.5-0.9) 09/24/20 04:15 GFR Calculation 122.7 mL/min (90-130) 09/24/20 04:15 Glucose 102 mg/dL (65-115) 09/24/20 04:15 Calculated Osmolality 288 mOsm/kg (285-295) 09/24/20 04:15 Calcium 9.2 mg/dL (8.5-10.5) 09/24/20 04:15 Triglycerides 95 mg/dL (0-150) 09/23/20 11:29 Cholesterol 191 mg/dL (0-200) 09/23/20 11:29 LDL Cholesterol, Calc 134 mg/dL (50-129) H 09/23/20 11:29 HDL Cholesterol 38 mg/dL (60-100) L 09/23/20 11:29 LDL/HDL Ratio 3.53 RATIO (0.00-3.22) H 09/23/20 11:29 Cholesterol/HDL Ratio 5.03 mg/dL (0.0-4.40) H 09/23/20 11:29 A&P Assessment and plan (1) Cardiomyopathy due to hypertension, with heart failure: LV gram was not performed. Ejection fraction was around 30% by echocardiogram. Currently she is compensated. Status: Acute (2) Severe aortic valve stenosis: The mean gradient across the aortic valve is 28 mmHg. For the time being, we may optimize her medical treatment. Status: Chronic (3) Pulmonary hypertension: Based on the results of the above and patient's clinical progress, further recommendations will be made Thank you for the opportunity to evaluate this patient and make these recommendations to continue on the current medication. Status: Acute (4) Benign essential hypertension: She was started on losartan in the [employer]. Currently her blood pressure is under control. Status: Chronic (5) Dyslipidemia: Patient was started on Lipitor which will be continued. Status: Chronic Additional A&P Information Patient is advised to continue on the current medications. [facility] at [facility] for a nurse check. I will be seen in the office in 3 weeks. Based on the clinical progress, further management decisions will be made Attestations Medical Necessity Statement*: Discharge home today Coding Level of Care Code Acute [facility]anner for [facility] Fwd Diagnoses Cardiomyopathy due to hypertension, with heart failure I11.0; I43 Severe aortic valve stenosis I35.0 Pulmonary hypertension I27.20 Benign essential hypertension I10 Dyslipidemia E78.5
--- NOTE | 2020-09-24 16:05 | PC.NURSE ---
patient discharge home at this time all discharge instructions new medications and follow up care appointments patient verbalized understanding. iv discontinued cath intact min bleeding noted. patient assisted to wheel chair accompanied to POV patient alert oriented and in stable condition
[2020-09-24 16:12] VITALS: BP 130/77; PULSE 82; RESP 18; O2SAT 93
== END 2020-09-24 16:00 | disposition home or self-care (01) ==
LOC: CSU 09:26
PROVIDERS: Internal Medicine Cardiovascular Disease; Admitting Provider Internal Medicine Cardiovascular Disease; PCP Nurse Practitioner; Visit Provider Internal Medicine Cardiovascular Disease
DX: I11.0 Hypertensive heart disease with heart failure (principal); I43 Cardiomyopathy in diseases classified elsewhere; I35.0 Nonrheumatic aortic (valve) stenosis; I27.20 Pulmonary hypertension, unspecified; E78.5 Hyperlipidemia, unspecified; Z87.891 Personal history of nicotine dependence; I50.9 Heart failure, unspecified; I25.10 Atherosclerotic heart disease of native coronary artery without angina pectoris
CPT/HCPCS: 12345; 36415; 80048; 80061; 85025; 85347; 85730; 93460; 96375; C1725; C1751; C1769; C1874; C1887; C1894; C9600; C9601; G0378; J1200; J1644; J2250; J2920; J3010; J3246; J3490; J7030; Q0163; Q9967

== ENCOUNTER → 2020-09-30 14:07 | Outpatient (BNVA) | payer MEDICARE, OTHER, SELFPAY | PROVIDERS: PCP Nurse Practitioner; Visit Provider Nurse Practitioner Family | DX: I11.0 Hypertensive heart disease with heart failure (principal); I43 Cardiomyopathy in diseases classified elsewhere | CPT/HCPCS: 80048 ==

== ENCOUNTER → 2020-10-07 15:00 | Outpatient (BNVA) | payer MEDICARE, OTHER, SELFPAY | PROVIDERS: PCP Nurse Practitioner; Visit Provider Internal Medicine | DX: E05.00 Thyrotoxicosis with diffuse goiter without thyrotoxic crisis or storm (principal); I43 Cardiomyopathy in diseases classified elsewhere; I11.0 Hypertensive heart disease with heart failure; M81.0 Age-related osteoporosis without current pathological fracture | CPT/HCPCS: 99214 ==

== ENCOUNTER → 2020-11-18 09:41 | Outpatient (BNVA) | payer MEDICARE, OTHER, SELFPAY | PROVIDERS: PCP Nurse Practitioner; Visit Provider Internal Medicine | DX: E05.00 Thyrotoxicosis with diffuse goiter without thyrotoxic crisis or storm (principal); I11.0 Hypertensive heart disease with heart failure; I43 Cardiomyopathy in diseases classified elsewhere; M81.0 Age-related osteoporosis without current pathological fracture; R74.01 Elevation of levels of liver transaminase levels | CPT/HCPCS: 36415; 80053; 84439; 84443; 84480; 99213 ==

== ENCOUNTER 2020-11-18 10:19 | Outpatient (CLI) | payer MEDICARE, OTHER, SELFPAY ==
[2020-11-18 12:11] LABS: Alanine Aminotransferase 15 U/L (0-33); Albumin Level 3.7 g/dL (3.5-5.2); Alkaline Phosphatase 113 IU/L (35-105); Aspartate Amino Transferase 18 U/L (0-32); Blood Urea Nitrogen 12 mg/dL (8-23); Calcium 9.3 mg/dL (8.5-10.5); Carbon Dioxide 26 mmol/L (22-29); Chloride 105 mmol/L (98-107); Free T4 Free Thyroxine 1.34 ng/dL (0.82-1.77); Globulin 3.7 g/dL (1.3-4.6); Glomerular Filtration Rate 122.7 mL/min (90-130); Glucose 98 mg/dL (65-115); Osmolality Calculated 290 mOsm/kg (285-295); Sodium 140 mmol/L (136-145); Thyroid Stimulating Hormone 0.01 uIU/mL (0.27-4.20); Total Bilirubin 0.5 mg/dL (0.15-1.2); Total Protein 7.4 g/dL (6.6-8.7)
[2020-11-19 10:52] LABS: T3 Total 140 ng/dL (76-181)
== END 2020-11-18 10:20 | disposition home or self-care (01) ==
PROVIDERS: PCP Nurse Practitioner; Visit Provider Internal Medicine
DX: E05.00 Thyrotoxicosis with diffuse goiter without thyrotoxic crisis or storm (principal); R74.01 Elevation of levels of liver transaminase levels
CPT/HCPCS: 36415; 80053; 84439; 84443; 84480

== ENCOUNTER → 2020-12-19 10:56 | Outpatient (BNVA) | payer MEDICARE, OTHER, SELFPAY | PROVIDERS: PCP Nurse Practitioner; Visit Provider Nurse Practitioner | DX: I70.0 Atherosclerosis of aorta (principal); I51.7 Cardiomegaly; R11.2 Nausea with vomiting, unspecified; R05 Cough; J98.8 Other specified respiratory disorders | CPT/HCPCS: 71046; 81003; 85025 ==

== ENCOUNTER → 2020-12-23 09:34 | Outpatient (BNVA) | payer MEDICARE, OTHER, SELFPAY | PROVIDERS: PCP Nurse Practitioner; Visit Provider Internal Medicine | DX: E05.00 Thyrotoxicosis with diffuse goiter without thyrotoxic crisis or storm (principal); I11.0 Hypertensive heart disease with heart failure; I43 Cardiomyopathy in diseases classified elsewhere; M81.0 Age-related osteoporosis without current pathological fracture; R74.01 Elevation of levels of liver transaminase levels | CPT/HCPCS: 80053; 84439; 84443; 84480; 99214 ==

== ENCOUNTER 2020-12-23 10:13 | Outpatient (CLI) | payer MEDICARE, OTHER, SELFPAY ==
[2020-12-23 11:15] LABS: Alanine Aminotransferase 17 U/L (0-33); Alkaline Phosphatase 121 IU/L (35-105); Anion Gap 14.4 (5-19); Aspartate Amino Transferase 22 U/L (0-32); Blood Urea Nitrogen 16 mg/dL (8-23); Calcium 9.3 mg/dL (8.5-10.5); Carbon Dioxide 24 mmol/L (22-29); Chloride 105 mmol/L (98-107); Glomerular Filtration Rate 99.4 mL/min (90-130); Glucose 110 mg/dL (65-115); Osmolality Calculated 290 mOsm/kg (285-295); Potassium 4.4 mmol/L (3.5-5.1); Sodium 139 mmol/L (136-145); Thyroid Stimulating Hormone 0.01 uIU/mL (0.27-4.20); Total Bilirubin 0.3 mg/dL (0.15-1.2)
[2020-12-23 12:50] LABS: Free T4 Free Thyroxine 1.29 ng/dL (0.82-1.77)
[2020-12-23 14:30] LABS: Globulin 3.5 g/dL (1.3-4.6); Total Protein 7.5 g/dL (6.6-8.7)
[2020-12-24 09:59] LABS: T3 Total 151 ng/dL (76-181)
== END 2020-12-23 10:14 | disposition home or self-care (01) ==
PROVIDERS: PCP Nurse Practitioner; Visit Provider Internal Medicine
DX: E05.00 Thyrotoxicosis with diffuse goiter without thyrotoxic crisis or storm (principal); R74.01 Elevation of levels of liver transaminase levels
CPT/HCPCS: 80053; 84439; 84443; 84480

== ENCOUNTER 2021-02-13 08:13 | Inpatient (IN) | payer MEDICARE, OTHER, SELFPAY ==
[2021-02-13] VITALS (14 sets, daily range): BP systolic 150–172; BP diastolic 74–103; PULSE 69–99; RESP 16–28; TEMP -98.1–36.7; O2SAT 89–99; BMI 22.0
--- NOTE | 2021-02-13 08:22 | XR_ITS ---
WS: [id number] XR chest 1V portable [id number] REASON FOR EXAM: SOB FINDINGS: Compared to the examination of 12/19/2020 patient has developed thickening of the interstitium in the left lower lung with short segments of horizontal linear density. The same findings are seen in the r ight lower lung with additional groundglass density infiltrates. The heart is mildly enlarged. Mildly tortuous thoracic aorta. Mild changes of degenerative spondylosis in the mid and lower thoracic spine. XR/XR chest 1V portable [id number] IMPRESSION: New pulmonary parenchymal findings compared to the previous examination. Likely this is acute/subacute abnormality. Findings favor congestive heart failure ho wever an acute pneumonitis is also a significant possibility.
--- NOTE | 2021-02-13 08:23 | ECG_ITS ---
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 Measurements Intervals [place] Rate: 82 P: 57 UT: 170 QRS: 67 QRSD: 98 T: 56 QT: 357 QTc: 417 Interpretive Statements SINUS RHYTHM WITH OCCASIONAL VENTRICULAR PREMATURE COMPLEXES LEFT ATRIAL ENLARGEMENT [-0.15mV P WAVE IN V1/V2] ST DEVIATION AND MODERATE T-WAVE ABNORMALITY, CONSIDER LATERAL ISCHEMIA [-0.1+ mV T WAVE IN I/aVL/V5/V6] No previous ECG available for comparison Electronically Signed On 02-14-2021 22:55:35 CDT by Juan Savage M.D. [id number] f
[2021-02-13 08:46] LABS: ABG PCO2 29.7 mmHg (35-45); ABG PH Result 7.38 (7.35-7.45); Alveolar-Arterial Oxygen Gradi 6.6 mmHg (5-10); Arterial Blood Gas Hematocrit 43.6 % (37-47); Base Excess ABG -6.4 mmol/L (-2.0-2.0); Blood Gas Allen Test Pos; Blood Gas Operator Identificat CAK; Blood Gas Sample Site Radial, left; Blood Gas Sample Type Arterial; Carboxyhemoglobin 3.3 %THgb (0.4-20.1); HCO3 ABG 17.5 mmol/L (22-26); Ionized Calcium Level - ABG 1.1 mmol/L (1.1-1.4); Methemoglobin 0.3 % (0.4-1.5); Oxygen Device NC; Oxygen Saturation ABG 89.2; PO2 ABG 59.7 mmHg (80.0-100.0); Potassium Level - ABG 3.5 mmol/L (3.5-5.0); Total Hemoglobin 14.2 g/dL (12-16)
[2021-02-13 09:17] LABS: Basophils # 0.1 10^3/uL (0.0-0.1); Basophils % 1.3 %; Eosinophils # 0.2 10^3/uL (0.0-0.8); Eosinophils % 2.4 %; Hematocrit 47.5 % (37.0-47.0); Hemoglobin 14.7 g/dL (11.5-15.3); Lymphocytes # 1.8 10^3/uL (0.8-4.8); Lymphocytes % 27.8 %; Mean Corpuscular HGB Conc 30.9 g/dL (30.0-36.0); Mean Corpuscular Hemoglobin 29.4 pg (28.0-34.0); Mean Platelet Volume 10.8 fL (7.4-10.4); Monocytes # 0.2 10^3/uL (0.2-0.9); Neutrophils # 4.14 10^3/uL (1.8-7.7); Nucleated Red Blood Cells % 0 %; Platelet Count 358 10^3/cmm (130-400); Red Cell Distribution Width 15.1 % (12.1-15.1); White Blood Count 6.4 10^3/uL (4.0-10.0)
[2021-02-13] MEDS: FUROsemide 10 mg/mL SDV 4mL 40 MG IVP (09:25)
[2021-02-13] MEDS: nitroglycerin 0.4 mg sublingual Tablet 0.8 MG SUBLINGUAL (09:26)
[2021-02-13 09:28] LABS: INR 1.03 (0.8-1.2)
[2021-02-13] MEDS: cefTRIAXone 1,000 MG in sodium chloride 0.9% (plus) 50 ML 100 MG IV (09:29)
[2021-02-13] MEDS: potassium chloride ER 20 mEq Tablet PO (09:29)
[2021-02-13 09:31] LABS: D Dimer 1.92 ug/mIFEU (0-0.59)
[2021-02-13 09:36] LABS: Troponin(5th) Baseline 14 ng/L (0-10)
[2021-02-13 09:43] LABS: Alanine Aminotransferase 45 U/L (0-33); Albumin Level 3.9 g/dL (3.5-5.2); Alkaline Phosphatase 153 IU/L (35-105); Anion Gap 20.1 (5-19); Aspartate Amino Transferase 52 U/L (0-32); Blood Urea Nitrogen 15 mg/dL (8-23); C Reactive Protein 7.7 mg/L (0.0-4.9); Calcium 8.8 mg/dL (8.5-10.5); Carbon Dioxide 19 mmol/L (22-29); Chloride 103 mmol/L (98-107); Globulin 3.3 g/dL (1.3-4.6); Glomerular Filtration Rate 99.4 mL/min (90-130); Glucose 207 mg/dL (65-115); Magnesium 1.9 mg/dL (1.7-2.3); NT Pro B Type Natriuretic Pept 6357 pg/mL (0-125); Osmolality Calculated 293 mOsm/kg (285-295); Potassium 4.1 mmol/L (3.5-5.1); Sodium 138 mmol/L (136-145); Total Bilirubin 0.5 mg/dL (0.15-1.2); Total Protein 7.2 g/dL (6.6-8.7)
[2021-02-13 09:59] LABS: Urine Color Yellow (Yellow)
[2021-02-13 10:00] LABS: Add Urine Microscopic? YES; Bilirubin Urine Neg (Negative); Blood Urine 2+ (Negative); Glucose Urine UA 2+ (Normal); Ketones Urine Negative (Negative); Leukocyte Esterase Urine Negative (Negative); Nitrate Urine Negative (Negative); Protein Urine 1+ (Negative); RBC Urine 0-4 /hpf (0-2); Urine Appearance Clear (CLEAR); Urobilinogen Urine Norm (Negative); WBC Urine 0-4 /hpf (0-5); pH Urine 6 (5-7)
[2021-02-13 10:01] LABS: Bacteria Urine TRACE /hpf; Hyaline Casts Urine 0-4 /lpf; Squamous Epithelial Cell Urine RARE /hpf (0-5)
--- NOTE | 2021-02-13 10:25 | ECG_ITS ---
[facility] Test Date: 2021-02-13 Pat Name: Bijal Alegria Department: Room: Gender: Female Functional Director: : 1950 Requested By: Salome Graham Order Number: [id number] [place] MD: Juan Savage M.D. Measurements Intervals [place] Rate: 61 P: 50 PA: 162 QRS: 66 QRSD: 101 T: 49 QT: 474 QTc: 480 Interpretive Statements SINUS RHYTHM POSSIBLE LEFT ATRIAL ENLARGEMENT [-0.1mV P WAVE IN V1/V2] MODERATE ST DEPRESSION [0.05+ mV ST DEPRESSION] PROLONGED QT INTERVAL Compared to ECG 02/13/2021 08:45:29 ST (T wave) deviation now present Prolonged QT interval now present Ventricular premature complex(es) no longer present T-wave abnormality no longer present Possible ischemia no longer present Electronically Signed On 02-14-2021 23:21:59 CDT by Juan Savage M.D. [id number]
--- NOTE | 2021-02-13 10:30 | ED_ITS ---
HPI - SOB/Dyspnea General: Chief Complaint: Shortness of Breath/Dyspnea Stated Complaint: Trouble Breathing Time Seen by Provider: 02/13/21 08:22 Source: patient and family Mode of arrival: ambulatory Limitations: no limitations History of Present Illness: HPI Narrative: 70-year-old female complaining of acute onset shortness of breath, starting this morning after she got up and went to the bathroom. Denies any recent fever, chest pain, nausea, sweating, medication changes. Yesterday she says she felt fine. She has been coughing a little bit more than usual, but she is a smoker so she does have a chronic cough. Associated symptoms: Reports chest congestion and orthopnea; Deny chest pain, diaphoresis, dizziness, extremity pain, fever(s), hemoptysis, lightheadedness, nausea, palpitations, syncope or vomiting Review of Systems General: Reports: 10 or more systems reviewed and unremarkable except in HPI and below Const: Reports: fatigue and malaise; Denies: fever(s), chills, night sweats or diaphoresis Eyes: Denies: change in vision, blurry vision or blind spots ENMT: Denies: throat pain or odynophagia Card: Reports: dyspnea on exertion and orthopnea; Denies: chest pain, palpitations, irregular heart rhythm, edema, lightheadedness or syncope Resp: Reports: dyspnea, productive cough, wheezing and chest congestion; Denies: pain on inspiration, change in phlegm color or hemoptysis GI: Denies: nausea, vomiting or hematemesis : Denies: difficulty voiding or dysuria Musc: Denies: neck pain, extremity pain or extremity swelling Skin/Breast: Reports: rash (Erythematous rash over forehead periocular area. No lip swelling) and erythema; Denies: skin swelling Neuro: Denies: headache(s), numbness in extremities, weakness in extremities, difficulty walking or dizziness Jsoeph/Lymph: Denies: easy bruising All/Imm: Reports: facial swelling PFSH ED PFSH: Medical History Aortic valve stenosis Atherosclerosis of coronary artery of [place] heart without angina pectoris Benign essential hypertension Cardiomyopathy due to hypertension, with heart failure Dyslipidemia History of smoking 30 or more pack years Osteoporosis, post-menopausal Pulmonary hypertension Severe aortic valve stenosis Situational anxiety Surgical History History of laparoscopy To look at tubes in [place] Family History Mother Hypertension Father Hypertension Brother CAD (coronary artery disease) Cancer Denies family history of Diabetes Clotting disorder Dementia Chronic kidney disease (CKD) Suicide Anesthesia complication Bleeding disorder Lung disease Stroke Social History Smoking and tobacco status: current some day smoker cigarettes Quit status (tobacco): has tried quititng Second hand smoke exposure: No Smoking risk assessment/counseling performed?: No Alcohol intake: current Alcohol type: beer Desire information about alcohol rehabilitation?: No Counseling given: No Desire information about substance/drug rehabilitation?: No Counseling given: No Adopted: No Caregiver/support person: No Lives independently: Yes Household members: spouse Housing: House Marital status: service: No Current occupational status: retired History of recent travel: Yes ([place]) Out of state: No Current gender identity: Female Physical Exam Const: COMMON NORMALS: patient oriented x3 GENERAL APPEARANCE: cooperative, ill appearing and frail appearing; not lethargic NUTRITIONAL APPEARANCE: thin ORIENTATION/CONSCIOUSNESS: Yes awake, Yes oriented to person, Yes oriented to place and Yes oriented to time; not lethargic HENMT: COMMON NORMALS: normocephalic and atraumatic HEAD & SCALP: normocephalic and atraumatic FACE & SINUS: face symmetric and erythema bilaterally periorbital and forehead Eye: COMMON NORMALS: Equal, round and reactive pupils present, EOMs intact bilaterally and conjunctivae normal PERIORBITAL: periorbital findings abnormal positive bilateral periorbital swelling and periorbital erythema CONJUNCTIVA: Yes conjunctivae normal PUPIL: Yes Equal, round and reactive pupils present Neck/C-Spine: GENERAL: Yes normal visual inspection and Yes trachea midline Lymph: LYMPHATIC: no lymphadenopathy noted Chest: COMMONS NORMALS: normal inspection of the chest and normal palpation of entire chest wall Resp: EFFORT & INSPECTION: Yes able to speak in complete sentences, Yes tachypneic, Yes Actively coughing and Yes uses accessory muscles AUSCULTATION: crackles and wheezes Cardio: COMMON NORMALS: regular rate and regular rhythm RATE: regular rate RHYTHM: regular rhythm HEART SOUNDS: Murmur heart sound present systolic Location: left sternal border Intensity: III/ Characteristics: harsh Timing: holo GI: COMMON NORMALS: Normal to inspection, nondistended, normoactive bowel sounds present, Soft to palpation, non-tender, No hepatosplenomegaly present and no masses PALPATION: Yes Soft to palpation and Yes No hepatosplenomegaly present Extremity: COMMON NORMALS: normal to inspection, full ROM and capillary refill normal; negative for no calf tenderness and negative for no pedal edema GENERAL: No edema Neuro: COMMON NORMALS: patient oriented x3, CN's II-XII intact bilaterally, moves all extremities and no focal motor deficits SENSORIUM/ORIENTATION: Yes oriented to person, Yes oriented to place, Yes oriented to time and No lethargic Skin: GENERAL SKIN EXAM: erythema LESIONS: lesions noted TRAUMA: lacerations and/or abrasions noted WOUNDS: No wounds noted Course Vital Signs: Vital signs: Vital Signs Temperature 97.5 F L 02/13/21 08:14 Pulse Rate 75 02/13/21 14:12 Respiratory Rate 18 02/13/21 14:12 Blood Pressure 167/91 02/13/21 14:12 Pulse Oximetry 96 02/13/21 14:12 MDM - SOB/Dyspnea MDM Narrative: Medical decision making narrative: 70-year-old female with acute onset dyspnea this morning upon waking. Initially she was hypertensive, tachypneic, O2 sats 89% on room air. Started on 4 L, improved to 99%. She does not typically use oxygen at home. Chest x-ray shows possible CHF versus acute pneumonitis. D-dimer mildly elevated, so CTA was done?findings of bilateral groundglass opacities raise suspicion for Covid pneumonia; rapid Covid test results: I administered nitroglycerin 0.8 mg soon after arrival, suspecting acute pulmonary edema. Additionally, I gave her 40 mg IV Lasix x1 (her home dose is 20 mg daily) and potassium 20 mEq Her CRP was slightly elevated, and her lactic acid was 5.0. Empiric antibiotics started. Initial troponin 14, 2-hour 30, delta 16.44 Initial EKG; normal sinus rhythm, 61, VA 162, QRS 101, QTc 477, normal axis. No acute ST elevation. No abnormally inverted T waves. No previous EKG for comparison. Last echo was 08/2020; EF 38%, severe aortic stenosis On reevaluation, the patient was feeling much better after diuresis with Lasix. She was weaned off oxygen, and was breathing comfortably. No chest pain or palpitations. I discussed the case with Dr. Savage, her telegraphic typewriter operator, he recommends admission for further work-up. I discussed the case with Dr. Luque, hospitalist, he accepts the admission to [facility] for further cardiac work-up. Will send PCR Covid test as well. Differential Diagnosis: Shortness of Breath Differential Diagnosis: Likely acute exacerbation of chronic obstructive airways disease, congestive heart failure, community acquired pneumonia, asthma with exacerbation and pulmonary embolism Medical Records: Attestation: I reviewed the patient's medical records. Lab Data: Attestation: I reviewed the patient's lab results. Labs: Lab Results 02/13/21 02/13/21 02/13/21 Range/Units 08:33 09:00 09:00 WBC 6.4 (4.0-10.0) 10^3/ uL RBC 5.00 (4.1-5.3) 10^6/u L Hgb 14.7 (11.5-15.3) g/dL Hct 47.5 H (37.0-47.0) % MCV 95.0 (81-99) fL MCH 29.4 (28.0-34.0) pg MCHC 30.9 (30.0-36.0) g/dL RDW 15.1 (12.1-15.1) % Plt Count 358 (130-400) 10^3/c mm MPV 10.8 H (7.4-10.4) fL Neut % (Auto) 65.0 % Lymph % (Auto) 27.8 % [place] % (Auto) 3.0 % Eos % (Auto) 2.4 % Baso % (Auto) 1.3 % Neut # (Auto) 4.14 (1.8-7.7) 10^3/u L Lymph # (Auto) 1.8 (0.8-4.8) 10^3/u L [place] # (Auto) 0.2 (0.2-0.9) 10^3/u L Eos # (Auto) 0.2 (0.0-0.8) 10^3/u L Baso # (Auto) 0.1 (0.0-0.1) 10^3/u L Nucleated RBC % (a uto) 0 % Nucleated RBCs # 0.0 /100WBC PT 13.80 (12.1-14.9) SECO NDS INR 1.03 (0.8-1.2) D-Dimer 1.92 H (0-0.59) ug/mIFE U Specimen Type Arterial Sample Site Radial, left ABG pH 7.38 (7.35-7.45) ABG pCO2 29.7 L (35-45) mmHg ABG pO2 59.7 L (80.0-100.0) mmH g ABG HCO3 17.5 L (22-26) mmol/L ABG O2 Saturation 89.2 ABG Base Excess -6.4 L (-2.0-2.0) mmol/ L Bart Test Pos A-a O2 Gradient 6.6 (5-10) mmHg Hematocrit 43.6 (37-47) % Hgb O2 Saturation 86.0 L (95-100) % Carboxyhemoglobin 3.3 (0.4-20.1) %THgb Methemoglobin 0.3 L (0.4-1.5) % Total Hemoglobin 14.2 (12-16) g/dL Sodium 138.0 (131-143) mmol/L Potassium 3.5 (3.5-5.0) mmol/L Glucose 221.0 H (70-115) mg/dL Ionized Calcium 1.1 (1.1-1.4) mmol/L O2 Delivery Device Nc O2 Liters/Min 2.0 % Sausage Maker ID Cak Chloride (98-107) mmol/L Carbon Dioxide (22-29) mmol/L Anion Gap (5-19) BUN (8-23) mg/dL Creatinine (0.5-0.9) mg/dL GFR Calculation (90-130) mL/min Calculated Osmolal ity (285-295) mOsm/k g Lactic Acid (0.5-2.2) mmol/L Lactate (0.5-2.2) mmol/L Calcium (8.5-10.5) mg/dL Magnesium (1.7-2.3) mg/dL Total Bilirubin (0.15-1.2) mg/dL AST (0-32) U/L ALT (0-33) U/L Alkaline Phosphata se (35-105) IU/L Troponin T Baselin e (0-10) ng/L Troponin T 120 Min [place] (0-10) ng/L Delta Troponin T (0-10) ABS# C-Reactive Protein (0.0-4.9) mg/L NT-Pro-B Natriuret Pep (0-125) pg/mL Total Protein (6.6-8.7) g/dL Albumin (3.5-5.2) g/dL Globulin (1.3-4.6) g/dL Free T4 (0.82-1.77) ng/d L Urine Color (Yellow) Urine Appearance (CLEAR) Urine pH (5-7) Ur Specific Gravit y (1.005-1.030) Urine Protein (Negative) Urine Glucose (UA) (Normal) Urine Ketones (Negative) Urine Blood (Negative) Urine Nitrate (Negative) Urine Bilirubin (Negative) Urine Urobilinogen (Negative) mg/dL Ur Leukocyte Emy ase (Negative) Urine RBC (0-2) /hpf Urine WBC (0-5) /hpf Ur Squamous Epith Cells (0-5) /hpf Amorphous Sediment Urine Bacteria (NONE) /hpf Hyaline Casts /lpf SARS-CoV-2 Ag (Rap id) (Negative) 02/13/21 02/13/21 02/13/21 Range/Units 09:00 09:00 09:00 WBC (4.0-10.0) 10^3/ uL RBC (4.1-5.3) 10^6/u L Hgb (11.5-15.3) g/dL Hct (37.0-47.0) % MCV (81-99) fL MCH (28.0-34.0) pg MCHC (30.0-36.0) g/dL RDW (12.1-15.1) % Plt Count (130-400) 10^3/c mm MPV (7.4-10.4) fL Neut % (Auto) % Lymph % (Auto) % [place] % (Auto) % Eos % (Auto) % Baso % (Auto) % Neut # (Auto) (1.8-7.7) 10^3/u L Lymph # (Auto) (0.8-4.8) 10^3/u L [place] # (Auto) (0.2-0.9) 10^3/u L Eos # (Auto) (0.0-0.8) 10^3/u L Baso # (Auto) (0.0-0.1) 10^3/u L Nucleated RBC % (a uto) % Nucleated RBCs # /100WBC PT (12.1-14.9) SECO NDS INR (0.8-1.2) D-Dimer (0-0.59) ug/mIFE U Specimen Type Sample Site ABG pH (7.35-7.45) ABG pCO2 (35-45) mmHg ABG pO2 (80.0-100.0) mmH g ABG HCO3 (22-26) mmol/L ABG O2 Saturation ABG Base Excess (-2.0-2.0) mmol/ L Bart Test A-a O2 Gradient (5-10) mmHg Hematocrit (37-47) % Hgb O2 Saturation (95-100) % Carboxyhemoglobin (0.4-20.1) %THgb Methemoglobin (0.4-1.5) % Total Hemoglobin (12-16) g/dL Sodium 138 (131-143) mmol/L Potassium 4.1 (3.5-5.0) mmol/L Glucose 207 H (70-115) mg/dL Ionized Calcium (1.1-1.4) mmol/L O2 Delivery Device O2 Liters/Min % Sausage Maker ID Chloride 103 (98-107) mmol/L Carbon Dioxide 19 L (22-29) mmol/L Anion Gap 20.1 H (5-19) BUN 15 (8-23) mg/dL Creatinine 0.6 (0.5-0.9) mg/dL GFR Calculation 99.4 (90-130) mL/min Calculated Osmolal ity 293 (285-295) mOsm/k g Lactic Acid 5.0 H* (0.5-2.2) mmol/L Lactate (0.5-2.2) mmol/L Calcium 8.8 (8.5-10.5) mg/dL Magnesium 1.9 (1.7-2.3) mg/dL Total Bilirubin 0.5 (0.15-1.2) mg/dL AST 52 H (0-32) U/L ALT 45 H (0-33) U/L Alkaline Phosphata se 153 H (35-105) IU/L Troponin T Baselin e 14 H (0-10) ng/L Troponin T 120 Min [place] (0-10) ng/L Delta Troponin T (0-10) ABS# C-Reactive Protein 7.7 H (0.0-4.9) mg/L NT-Pro-B Natriuret Pep 6357 H (0-125) pg/mL Total Protein 7.2 (6.6-8.7) g/dL Albumin 3.9 (3.5-5.2) g/dL Globulin 3.3 (1.3-4.6) g/dL Free T4 0.60 L (0.82-1.77) ng/d L Urine Color (Yellow) Urine Appearance (CLEAR) Urine pH (5-7) Ur Specific Gravit y (1.005-1.030) Urine Protein (Negative) Urine Glucose (UA) (Normal) Urine Ketones (Negative) Urine Blood (Negative) Urine Nitrate (Negative) Urine Bilirubin (Negative) Urine Urobilinogen (Negative) mg/dL Ur Leukocyte Emy ase (Negative) Urine RBC (0-2) /hpf Urine WBC (0-5) /hpf Ur Squamous Epith Cells (0-5) /hpf Amorphous Sediment Urine Bacteria (NONE) /hpf Hyaline Casts /lpf SARS-CoV-2 Ag (Rap id) (Negative) 02/13/21 02/13/21 02/13/21 Range/Units 09:00 11:02 11:02 WBC (4.0-10.0) 10^3/ uL RBC (4.1-5.3) 10^6/u L Hgb (11.5-15.3) g/dL Hct (37.0-47.0) % MCV (81-99) fL MCH (28.0-34.0) pg MCHC (30.0-36.0) g/dL RDW (12.1-15.1) % Plt Count (130-400) 10^3/c mm MPV (7.4-10.4) fL Neut % (Auto) % Lymph % (Auto) % [place] % (Auto) % Eos % (Auto) % Baso % (Auto) % Neut # (Auto) (1.8-7.7) 10^3/u L Lymph # (Auto) (0.8-4.8) 10^3/u L [place] # (Auto) (0.2-0.9) 10^3/u L Eos # (Auto) (0.0-0.8) 10^3/u L Baso # (Auto) (0.0-0.1) 10^3/u L Nucleated RBC % (a uto) % Nucleated RBCs # /100WBC PT (12.1-14.9) SECO NDS INR (0.8-1.2) D-Dimer (0-0.59) ug/mIFE U Specimen Type Sample Site ABG pH (7.35-7.45) ABG pCO2 (35-45) mmHg ABG pO2 (80.0-100.0) mmH g ABG HCO3 (22-26) mmol/L ABG O2 Saturation ABG Base Excess (-2.0-2.0) mmol/ L Bart Test A-a O2 Gradient (5-10) mmHg Hematocrit (37-47) % Hgb O2 Saturation (95-100) % Carboxyhemoglobin (0.4-20.1) %THgb Methemoglobin (0.4-1.5) % Total Hemoglobin (12-16) g/dL Sodium (131-143) mmol/L Potassium (3.5-5.0) mmol/L Glucose (70-115) mg/dL Ionized Calcium (1.1-1.4) mmol/L O2 Delivery Device O2 Liters/Min % Sausage Maker ID Chloride (98-107) mmol/L Carbon Dioxide (22-29) mmol/L Anion Gap (5-19) BUN (8-23) mg/dL Creatinine (0.5-0.9) mg/dL GFR Calculation (90-130) mL/min Calculated Osmolal ity (285-295) mOsm/k g Lactic Acid (0.5-2.2) mmol/L Lactate 1.6 (0.5-2.2) mmol/L Calcium (8.5-10.5) mg/dL Magnesium (1.7-2.3) mg/dL Total Bilirubin (0.15-1.2) mg/dL AST (0-32) U/L ALT (0-33) U/L Alkaline Phosphata se (35-105) IU/L Troponin T Baselin e (0-10) ng/L Troponin T 120 Min [place] 30.44 H (0-10) ng/L Delta Troponin T 16.44 H* (0-10) ABS# C-Reactive Protein (0.0-4.9) mg/L NT-Pro-B Natriuret Pep (0-125) pg/mL Total Protein (6.6-8.7) g/dL Albumin (3.5-5.2) g/dL Globulin (1.3-4.6) g/dL Free T4 (0.82-1.77) ng/d L Urine Color Yellow (Yellow) Urine Appearance Clear (CLEAR) Urine pH 6 (5-7) Ur Specific Gravit y 1.020 (1.005-1.030) Urine Protein 1+ H (Negative) Urine Glucose (UA) 2+ (Normal) Urine Ketones Negative (Negative) Urine Blood 2+ H (Negative) Urine Nitrate Negative (Negative) Urine Bilirubin Neg (Negative) Urine Urobilinogen Norm (Negative) mg/dL Ur Leukocyte Emy ase Negative (Negative) Urine RBC 0-4 H (0-2) /hpf Urine WBC 0-4 H (0-5) /hpf Ur Squamous Epith Cells Rare (0-5) /hpf Amorphous Sediment Not Reportable Urine Bacteria Trace (NONE) /hpf Hyaline Casts 0-4 H /lpf SARS-CoV-2 Ag (Rap id) (Negative) 02/13/21 Range/Units 12:13 WBC (4.0-10.0) 10^3/ uL RBC (4.1-5.3) 10^6/u L Hgb (11.5-15.3) g/dL Hct (37.0-47.0) % MCV (81-99) fL MCH (28.0-34.0) pg MCHC (30.0-36.0) g/dL RDW (12.1-15.1) % Plt Count (130-400) 10^3/c mm MPV (7.4-10.4) fL Neut % (Auto) % Lymph % (Auto) % [place] % (Auto) % Eos % (Auto) % Baso % (Auto) % Neut # (Auto) (1.8-7.7) 10^3/u L Lymph # (Auto) (0.8-4.8) 10^3/u L [place] # (Auto) (0.2-0.9) 10^3/u L Eos # (Auto) (0.0-0.8) 10^3/u L Baso # (Auto) (0.0-0.1) 10^3/u L Nucleated RBC % (a uto) % Nucleated RBCs # /100WBC PT (12.1-14.9) SECO NDS INR (0.8-1.2) D-Dimer (0-0.59) ug/mIFE U Specimen Type Sample Site ABG pH (7.35-7.45) ABG pCO2 (35-45) mmHg ABG pO2 (80.0-100.0) mmH g ABG HCO3 (22-26) mmol/L ABG O2 Saturation ABG Base Excess (-2.0-2.0) mmol/ L Bart Test A-a O2 Gradient (5-10) mmHg Hematocrit (37-47) % Hgb O2 Saturation (95-100) % Carboxyhemoglobin (0.4-20.1) %THgb Methemoglobin (0.4-1.5) % Total Hemoglobin (12-16) g/dL Sodium (131-143) mmol/L Potassium (3.5-5.0) mmol/L Glucose (70-115) mg/dL Ionized Calcium (1.1-1.4) mmol/L O2 Delivery Device O2 Liters/Min % Sausage Maker ID Chloride (98-107) mmol/L Carbon Dioxide (22-29) mmol/L Anion Gap (5-19) BUN (8-23) mg/dL Creatinine (0.5-0.9) mg/dL GFR Calculation (90-130) mL/min Calculated Osmolal ity (285-295) mOsm/k g Lactic Acid (0.5-2.2) mmol/L Lactate (0.5-2.2) mmol/L Calcium (8.5-10.5) mg/dL Magnesium (1.7-2.3) mg/dL Total Bilirubin (0.15-1.2) mg/dL AST (0-32) U/L ALT (0-33) U/L Alkaline Phosphata se (35-105) IU/L Troponin T Baselin e (0-10) ng/L Troponin T 120 Min [place] (0-10) ng/L Delta Troponin T (0-10) ABS# C-Reactive Protein (0.0-4.9) mg/L NT-Pro-B Natriuret Pep (0-125) pg/mL Total Protein (6.6-8.7) g/dL Albumin (3.5-5.2) g/dL Globulin (1.3-4.6) g/dL Free T4 (0.82-1.77) ng/d L Urine Color (Yellow) Urine Appearance (CLEAR) Urine pH (5-7) Ur Specific Gravit y (1.005-1.030) Urine Protein (Negative) Urine Glucose (UA) (Normal) Urine Ketones (Negative) Urine Blood (Negative) Urine Nitrate (Negative) Urine Bilirubin (Negative) Urine Urobilinogen (Negative) mg/dL Ur Leukocyte Emy ase (Negative) Urine RBC (0-2) /hpf Urine WBC (0-5) /hpf Ur Squamous Epith Cells (0-5) /hpf Amorphous Sediment Urine Bacteria (NONE) /hpf Hyaline Casts /lpf SARS-CoV-2 Ag (Rap id) Negative (Negative) Discharge Plan Discharge Prescriptions: No Action losartan 50 mg tablet 50 mg PO DAILY 30 Days Qty: 30 RF: 5 fluoxetine [Prozac] 20 mg capsule 20 mg PO DAILY 30 Days Qty: 30 RF: 5 propranolol 10 mg tablet 10 mg PO TID Qty: 90 RF: 3 nitroglycerin 0.4 mg Tablet, Sublingual 0.4 mg sublingual Q5M PRN (Reason: Chest Pain) 30 Days Qty: 30 RF: 3 clopidogrel [Plavix] 75 mg tablet 75 mg PO DAILY 30 Days Qty: 30 RF: 5 atorvastatin 40 mg Tablet 40 mg PO BEDTIME 30 Days Qty: 30 RF: 3 furosemide [Lasix] 20 mg tablet 20 mg PO DAILY 30 Days Qty: 30 RF: 3 potassium chloride 8 mEq capsule, extended release 8 meq PO DAILY PRN (Reason: CHF) 30 Days Qty: 30 RF: 3 levothyroxine 25 mcg Tablet 25 mcg PO DAILY RF: 0 aspirin 81 mg tablet,delayed release (DR/EC) 81 mg PO DAILY RF: 0 Coding Level of Care Code ED Subject Scientific Research for Chg Fwd Exam Comprehensive
--- NOTE | 2021-02-13 10:30 | CT_ITS ---
WS: [id number] CTA OF THE CHEST WITH PULMONARY EMBOLISM PROTOCOL TECHNIQUE: High-resolution contrast enhanced CTA of the chest with coronal and sagittal reformatted i mages with pulmonary embolism protocol. MIP images are also reviewed. CLINICAL INFORMATION: Dyspnea, elevated D-dimer COMPARISON: None. DLP: 388.[address] scans at [facility] use at least one of these dose optimization techniques: automat ed exposure control; mA and/or kV adjustment per patient size (includes targeted exams where dose is matched to clinical indication); or iterative reconstruction. FINDINGS: Proximal main pulmonary arteries are normal. Normal segmental and subsegmental pulmonary arteries. No evidence of pulmonary embolus. Chronic emphysematous changes. Hazy ground glass infiltrates in the right upper lobe and both lower l obes. No focal consolidation. Small bilateral pleural effusions. Aortic calcification. Normal caliber thoracic aorta. Coronary calcification. No axillary lymphadenopathy. Adrenal glands are normal. Mild thoracic kyphosis. CT/CT angio chest PE protcl [id number] IMPRESSION: 1. No evidence of pulmonary embolus. 2. Hazy ground glass infiltrates both lower lobes and right upper lobe suspic ious for COVID 19 pneumonia in appropriate clinical setting. 3. Small bilateral pleural effusions. 4. No focal consolidation. Notified Salome Graham MD at 02/13/2021 11:56 AM.
[2021-02-13 11:03] LABS: Reflex Lactate Order REFLEX LACTIC ORDERD
[2021-02-13] MEDS: iohexol 350 mg/mL 100 mL Btl IV (11:25)
[2021-02-13 11:28] LABS: Lactate (Lactic Acid level) 1.6 mmol/L (0.5-2.2)
[2021-02-13 11:31] LABS: Troponin 5 2HR 30.44 ng/L (0-10)
[2021-02-13 11:34] LABS: Troponin 5 2HR Delta 16.44 ABS# (0-10)
[2021-02-13 13:36] LABS: SARS Covid-2 Antigen Negative (Negative)
--- NOTE | 2021-02-13 14:06 | ECG_ITS ---
[facility] ED Test Date: 2021-02-13 Pat Name: Bijal Alegria Department: Room: 255 Gender: Female Project Management Manager: : 1950 Requested By: Salome Graham Order Number: [id number] Tyler MD: Erika Sevilla M.D. Measurements Intervals [employer] Rate: 70 P: 53 [place]: 165 QRS: 61 QRSD: 92 T: 48 QT: 454 QTc: 493 Interpretive Statements SINUS RHYTHM POSSIBLE LEFT ATRIAL ENLARGEMENT [-0.1mV P WAVE IN V1/V2] MODERATE ST DEPRESSION [0.05+ mV ST DEPRESSION] PROLONGED QT INTERVAL Compared to ECG 02/13/2021 14:20:34 No significant changes Electronically Signed On 02-16-2021 20:33:21 CDT by Erika Sevilla M.D. [id number]
--- NOTE | 2021-02-13 14:25 | ECG_ITS ---
[facility] Test Date: 2021-02-13 Pat Name: Bijal Alegria Department: Room: Gender: Female Machine Try Out Setter: : 1950 Requested By: Salome Graham Order Number: [id number] Tyler MD: Juan Savage M.D. Measurements Intervals [place] Rate: 71 P: 45 [place]: 158 QRS: 56 QRSD: 91 T: 44 QT: 451 QTc: 491 Interpretive Statements SINUS RHYTHM LEFT ATRIAL ENLARGEMENT [-0.15mV P WAVE IN V1/V2] MODERATE ST DEPRESSION [0.05+ mV ST DEPRESSION] PROLONGED QT INTERVAL Compared to ECG 02/13/2021 11:48:53 No significant changes Electronically Signed On 02-14-2021 23:22:09 CDT by Juan Savage M.D. [id number]
--- NOTE | 2021-02-13 15:22 | PC.NURSE ---
Reported pts blood pressure to her nurse
--- NOTE | 2021-02-13 15:25 | USCV_ITS ---
Bijal Alegria Age: 70 Gender: F : 1950 Exam Date: 02/13/2021 16:01 Ordering Phys: Kin Luque MD Technologist: Marlen Gomez [place] [facility] [place]: CHF BP: / HR: 76 Rhythm: Sinus Technical Quality: Adequate MEASUREMENTS (Male / Female) Normal Values 2D ECHO LV Diastolic Diameter PLAX 4.7 cm 4.2 - 5.9 / 3.9 - 5.3 cm LV Systolic Diameter PLAX 4.3 cm LV Chamber Size 4.3 cm IVS Diastolic Thickness 1.1 cm 0.6 - 1.0 / 0.6 - 0.9 cm IVS Systolic Thickness 1.0 cm LVPW Diastolic Thickness 1.7 cm 0.6 - 1.0 / 0.6 - 0.9 cm LVPW Systolic Thickness 1.8 cm RV Chamber Size 4.2 cm LVOT Diameter 2.0 cm LV Ejection Fraction 2D Teich 18.3 % LV Ejection Fraction MOD 2C 25.3 % LV Ejection Fraction 2C AL 26.0 % LA Diameter 4.3 cm LA Width 4.0 cm LA Height 4.8 cm RA Width 3.5 cm RA Height 3.8 cm Aorta at Sinotubular Diameter 2.2 cm M-MODE LV Diastolic Diameter MM 5.7 cm 4.2 - 5.9 / 3.9 - 5.3 cm LV Systolic Diameter MM 4.0 cm LV Ejection Fraction MM Teich 55.7 % IVS Diastolic Thickness MM 0.6 cm 0.6 - 1.0 / 0.6 - 0.9 cm IVS Systolic Thickness MM 1.0 cm LVPW Diastolic Thickness MM 1.1 cm 0.6 - 1.0 / 0.6 - 0.9 cm LVPW Systolic Thickness MM 0.8 cm Aortic Annulus Diameter 2.8 cm LA Ao Ratio MM 1.5 MV E Point Septal Separation 1.1 cm DOPPLER AV Peak Velocity 371.0 cm/s LVOT Peak Velocity 97.0 cm/s AV Area Cont Eq vti 0.8 cm squared AV Area Cont Eq pk 0.8 cm squared MV Area PHT 9.6 cm squared Mitral E to A Ratio 1.3 MV E' Velocity 70.0 cm/s Mitral E to MV E' Ratio 15.9 Mitral E to LV E' Lateral Ratio 16.1 Mitral E to LV E' Septal Ratio 15.9 TR Peak Velocity 216.7 cm/s TR Peak Gradient 18.8 mmHg TV Peak E Velocity 70.0 cm/s Right Atrial Pressure 3.0 mmHg Pulmonary Artery Systolic Pressu 21.8 mmHg PV Peak Velocity 63.0 cm/s RV Acceleration Time 0.1 s RV Ejection Time 0.3 s RV AcT/ET 0.3 FINDINGS Left Ventricle Normal LV size 2 cm ejection fraction of around 38%(visual). Diffuse hypokinesia left ventricle. Grade 3 left ventricular diastolic dysfunction Right Ventricle Normal right ventricular size and systolic function. Right Atrium Normal right atrial size. Left Atrium Mildly increased left atrial size. Mitral Valve Thickened mitral valve. At least moderate mitral regurgitation . moderate calcification in the anterior mitral leaflet Aortic Valve Trace to mild aortic valve regurgitation. Severe aortic valve stenosis with a valve area of 0.82 cm card. Peak velocity of 3.271 m/s with a peak gradient of 55 and a mean gradient of 21 mmHg. The valve index was 0.58 Tricuspid Valve Mild tricuspid valve regurgitation. Estimated pulmonary artery peak systolic pressure of 22 mmHg Pulmonic Valve Mild pulmonary valve regurgitation. Pericardium No pericardial effusion. Aorta Normal aortic annulus size. Minimal dense plaques in the ascending aorta CONCLUSIONS Normal LV size 2 cm ejection fraction of around 38%(visual). Diffuse hypokinesia left ventricle. Grade 3 left ventricular diastolic dysfunction . Mildly increased left atrial size. Thickened mitral valve. At least moderate mitral regurgitation . Moderate calcification in the anterior mitral leaflet. Severe aortic valve stenosis with a valve area of 0.82 cm card. Peak velocity of 3.271 m/s with a peak gradient of 55 and a mean gradient of 21 mmHg. The valve index was 0.58. Trace to mild aortic valve regurgitation. Mild tricuspid valve regurgitation. Estimated pulmonary artery peak systolic pressure of 22 mmHg. There is no pericardial effusion. There are no intracardiac masses. Compared to the previous study from 09/10/2020, there may not be a significant change Dr Juan Savage MD FAC (Electronically Signed) Final Date: 13 February 2021 18:02 S
[2021-02-13 15:38] LABS: Troponin 5 6HR 42.56 ng/L (0-10)
[2021-02-13 15:45] LABS: Troponin 5 6HR Delta 28.56 ng/L (0-12)
[2021-02-13 16:34] LABS: Gamma Glutamyl Transferase 47 U/L (5-36); Thyroid Stimulating Hormone 4.44 uIU/mL (0.27-4.20)
--- NOTE | 2021-02-13 16:38 | PM.HP ---
Providers/Chief Complaint Admitting Physician: Kin Luque Primary Care Provider: Yuly Campos, [place] Chief Complaint: Trouble Breathing History of Present Illness Pleasant 70-year-old lady with history of severe aortic stenosis, CAD status post stenting, Graves' disease, pulmonary hypertension, possible COPD, current smoker, not normally using supplemental oxygen, came into ER for evaluation after experiencing severe shortness of breath this morning after walking her dog. Denies chest pain. In ER noted requiring 4 L oxygen by nasal cannula on presentation to maintain saturation in 90s. With pulmonary parenchymal infiltrates thought to be secondary to congestive heart failure versus pneumonitis. Due to abnormal D-dimer CT angiogram was obtained, without finding of PE, with hazy groundglass infiltrates in both lower lobes, right upper lobe, could possibly correspond to COVID-19. Rapid COVID-19 test was negative. PCR requested and pending. In ER with elevated NT proBNP at 6357, afebrile, without leukocytosis, with hypoxia, ABG 7.38/29.7/59.7/17.5, metabolic acidosis, bicarb 19, anion gap 20.1, lactic acid 5. Mild elevation AST ALT, 52, 45 respectively. Mild chronic location of alkaline phosphatase, currently somewhat worse at 153. Initial troponin minimally elevated at 14, with rise to 30.44 at 2 hours, 42.56 at 6 hours. In ER she received a dose of 40 mg IV Lasix. 0.8 mg nitroglycerin. Received a dose of Rocephin. During my visit she reports she is feeling much much better. She weaned down to 1 L of oxygen by nasal cannula. Denies chest pain. Breathing much easier. Prior to this morning she was at baseline health. Review of Systems Const: Denies: fever(s), chills, body aches or malaise Eyes: Denies: change in vision or eye redness ENMT: Denies: throat pain, oral sores or ear or mastoid pain Card: Reports: dyspnea on exertion; Denies: chest pain, edema or pre-syncope Resp: Reports: dyspnea; Denies: productive cough, change in phlegm color or hemoptysis GI: Denies: abdominal pain, nausea, vomiting, diarrhea, constipation, hematochezia or melena : Denies: flank pain, urinary frequency or hematuria Musc: Denies: back pain, joint swelling or joint redness Skin/Breast: Denies: rash, sores or new lesions Neuro: Denies: headache(s), numbness in extremities, weakness in extremities, dizziness, confusion or seizure-like activity Endo: Denies: polyuria or polydipsia Joseph/Lymph: Denies: easy bleeding or purpura All/Imm: Denies: urticaria, throat swelling or tongue swelling Medications/Allergies Home Medications Medication Instructions Recorded Confirmed Last Taken Type propranolol 10 mg tablet 10 mg PO TID #90 tab 09/04/20 02/13/21 09/22/20 17:30 Rx fluoxetine 20 mg capsule 20 mg PO DAILY 30 Days #30 cap 09/07/20 02/13/21 09/22/20 17:30 Rx atorvastatin 40 mg PO BEDTIME 30 Days #30 tab 09/24/20 02/13/21 02/12/21 Rx clopidogrel [Plavix] 75 mg PO DAILY 30 Days #30 tab 09/24/20 02/13/21 Unknown Rx furosemide [Lasix] 20 mg PO DAILY 30 Days #30 tab 09/24/20 02/13/21 Unknown Rx nitroglycerin 0.4 mg SUBLINGUAL Q5M PRN 30 Days 09/24/20 02/13/21 Unknown Rx #30 tab potassium chloride 8 meq PO DAILY PRN 30 Days #30 cap 09/24/20 02/13/21 Unknown Rx losartan 50 mg tablet 50 mg PO DAILY 30 Days #30 tab 10/15/20 02/13/21 Unknown Rx aspirin 81 mg PO DAILY 02/13/21 02/13/21 02/12/21 History levothyroxine 25 mcg PO DAILY 02/13/21 02/13/21 Unknown History Allergies Allergy/AdvReac Type Severity Reaction Status Date / Time bupropion [From Wellbutrin] Allergy ADR-Nausea Verified 02/10/21 08:39 PFSH Acute PFSH: Medical History Aortic valve stenosis Atherosclerosis of coronary artery of [place] heart without angina pectoris Benign essential hypertension Cardiomyopathy due to hypertension, with heart failure Dyslipidemia History of smoking 30 or more pack years Osteoporosis, post-menopausal Pulmonary hypertension Severe aortic valve stenosis Situational anxiety Surgical History History of laparoscopy To look at tubes in [place] Family History Mother Hypertension Father Hypertension Brother CAD (coronary artery disease) Cancer Denies family history of Diabetes Clotting disorder Dementia Chronic kidney disease (CKD) Suicide Anesthesia complication Bleeding disorder Lung disease Stroke Social History Smoking and tobacco status: current some day smoker cigarettes Quit status (tobacco): has tried quititng Second hand smoke exposure: No Smoking risk assessment/counseling performed?: No Alcohol intake: current Alcohol type: beer Desire information about alcohol rehabilitation?: No Counseling given: No Desire information about substance/drug rehabilitation?: No Counseling given: No Adopted: No Caregiver/support person: No Lives independently: Yes Household members: spouse Housing: House Marital status: service: No Current occupational status: retired History of recent travel: Yes ([place]) Out of state: No Current gender identity: Female Vitals/I&O/Wt Last Vital Signs Temp 97.6 F 02/13/21 16:00 Pulse 82 02/13/21 16:00 Resp 17 02/13/21 16:00 BP 171/93 02/13/21 16:00 Pulse Ox 96 02/13/21 16:00 02/13/21 02/13/21 02/13/21 06:59 14:59 22:59 Intake Total 50 / 50 Balance 50 / 50 Weight last 48 hrs Weight 49.442 kg Physical Exam Narrative: EXAM NARRATIVE: Reports she is feeling much better. Nasal cannula in place. Speaking full sentences. Const: COMMON NORMALS: no acute distress and patient oriented x3 HENMT: COMMON NORMALS: oropharynx normal Neck/C-Spine: COMMON NORMALS: no JVD Resp: COMMON NORMALS: normal respiratory effort AUSCULTATION: rhonchi and wheezes Cardio: COMMON NORMALS: no JVD, regular rhythm, S1 normal heart sound present, S2 normal heart sound present and No murmurs present (Cardio) RHYTHM: regular rhythm HEART SOUNDS: S1 normal heart sound present and S2 normal heart sound present GI: COMMON NORMALS: Normal to inspection, nondistended, normoactive bowel sounds present, Soft to palpation and non-tender PALPATION: Yes Soft to palpation Extremity: COMMON NORMALS: no joint enlargement and no pedal edema Neuro: COMMON NORMALS: patient oriented x3 and moves all extremities Skin: COMMON NORMALS: no rashes or lesions noted GENERAL SKIN EXAM: no rashes or lesions noted Data : 02/13/21 09:00 02/13/21 09:00 A&P Assessment and plan (1) Acute respiratory failure with hypoxia: She is feeling better after receiving Lasix and nitroglycerin dose in ER. Diffuse infiltrates noted on imaging, possibly flash pulmonary edema, CHF. Noted groundglass quality on CTA, possible COVID-19 pneumonia considered, although perhaps less likely given she has no other symptoms. She has minimal cough, not much beyond usual, denies muscle aches, chills, is afebrile, no headache, nausea vomiting or diarrhea. However, to exclude we will go ahead and test PCR for the virus. At this time continue diuretics for CHF exacerbation. Possible bronchitis with wheezing, rhonchi, will add steroid, inhalers, attempt to collect sputum culture. Flutter valve. Status: Acute (2) Flash pulmonary edema: As above. Also she notes she snores at night. Would benefit from sleep study. Status: Acute (3) Acute CHF: Complete troponin EKG series with rising troponin trend. Due to possible non-STEMI we will treat for this. Appreciate cardiology assessment as well. Assess urgent TTE. Continue IV Lasix. Cardiac diet. Avoid hypovolemia/hypotension given severe aortic stenosis. Status: Acute (4) Acute bronchitis: As above. Status: Acute (5) Lactic acidosis: Suspect hypoperfusion secondary to acute CHF, flash pulmonary edema, hypoxia. Resolved with diuresis, oxygen support. Status: Acute (6) Transaminitis: We will check GGT. Reassess. Status: Acute (7) Troponin level elevated: Possible non-STEMI. Discussed with cardiology, initiated aspirin, continue beta-rom, although reduced dose due to CHF, continue statin. Add therapeutic Lovenox. TTE. Appreciate cardiology consultation. Status: Acute (8) Hypothyroidism: We will adjust levothyroxine dose to 37.5 mcg. Status: Acute Attestations Medical Necessity Statement*: Admission of over 2 midnights ago needed for assessment of management of acute CHF, flash pulmonary edema, acute hypoxic respiratory failure, possible non-STEMI, acute bronchitis in a lady with underlying chronic congestive heart failure, severe aortic stenosis. Coding Level of Care Code Acute Early Childhood Special Educator for Chg Fwd Exam Comprehensive Diagnoses Acute respiratory failure with hypoxia J96.01 Flash pulmonary edema J81.0 Acute CHF I50.9 Acute bronchitis J20.9 Lactic acidosis E87.2 Transaminitis R74.01 Troponin level elevated R77.8 Hypothyroidism E03.9
[2021-02-13] MEDS: famotidine 20 mg Tablet PO (17:03)
[2021-02-13] MEDS: predniSONE 20 mg Tablet 40 MG PO (17:03)
[2021-02-13] MEDS: enoxaparin 60 mg/0.6 mL Syringe 50 MG SUBCUT (17:03)
[2021-02-13] MEDS: aspirin 325 mg Tablet PO (17:03)
[2021-02-13 17:18] LABS: Gamma Glutamyl Transferase 44 U/L (5-36)
--- NOTE | 2021-02-13 17:32 | P.CONIM_ITS ---
Providers/Reason For Consult Consulting Physican/Specialty*: Consuelo Savage MD/ cardiology Reason for Consult*: Patient with shortness of breath, elevated troponin T and aortic valve stenosis. Attending Physician: Kin Luque Primary Care Provider: JAYMIE Vora History of Present Illness History of Present Illness Bijal Alegria is a 70 year old female, is admitted to the hospital through the emergency room, where she presented with complaints of rather acute onset of shortness of breath since this morning. Patient was found to be in congestive heart failure. She also is known to have severe aortic valve stenosis. She is admitted to hospital for further evaluation management. She was found to have elevated troponin T with significant delta suggesting acute myocardial infarction. Cardiology consult is requested for further cardiac evaluation and recommendations. This patient is known to have atherosclerotic heart disease, high blood pressure, severe aortic valve stenosis and cardiomyopathy. She had a cardiac catheterization in August of last year which revealed high-grade lesions in the obtuse marginal artery and right coronary artery. She underwent PCI of these lesions. She had a moderately severe disease in the distal LAD which was left alone, to be managed medically. Patient apparently has been doing okay with no significant symptoms up until this morning when she woke up to take her dog out. Once she got back into the house she started having shortness of breath rather acutely. Her symptoms started getting worse. For this reason, she was brought to the emergency room. She did not have any fever or chills. No cough. No abdominal pain or dysuria. No headache or blurring of vision. No other specific complaints. She never had any chest pain or chest tightness. No palpitations. Her echocardiogram done last year revealed an LV ejection fraction of around 39%. She had severe aortic valve stenosis with a valve area 0.7 cm?. Repeat echocardiogram today revealed no significant changes. Her initial troponin T was 14 with a 2-hour delta of 14 and 6-hour delta of 25. Review of Systems Narrative: CONSTITUTIONAL: No fever or chills. Has been having some amount of dyspnea exertion as baseline. EYES: No blurring of vision or other visual disturbances lately. ENT: No hoarseness of voice, auditory disturbances or sore throat. CARDIOVASCULAR: As mentioned above. RESPIRATORY: No significant cough. GASTROINTESTINAL: No hematemesis or melena. GENITOURINARY: No dysuria or hematuria. INTEGUMENTARY: No skin rashes or history of skin cancer. NEURO: No transient ischemic attacks or amaurosis. PSYCHIATRIC: No history of psychosis or major depression. HEMATOLOGIC: No bleeding disorders or significant anemia. ENDOCRINE: No history of polyuria or polydipsia. MUSCULOSKELETAL: No recent joint pain or swelling. ALLERGY/IMMUNOLOGY: As mentioned above. Meds/Allergies Home Medications and Allergies Home Medications Medication Instructions Recorded Confirmed Last Taken Type propranolol 10 mg tablet 10 mg PO TID #90 tab 09/04/20 02/13/21 09/22/20 17:30 Rx fluoxetine 20 mg capsule 20 mg PO DAILY 30 Days #30 cap 09/07/20 02/13/21 09/22/20 17:30 Rx atorvastatin 40 mg PO BEDTIME 30 Days #30 tab 09/24/20 02/13/21 02/12/21 Rx clopidogrel [Plavix] 75 mg PO DAILY 30 Days #30 tab 09/24/20 02/13/21 Unknown Rx furosemide [Lasix] 20 mg PO DAILY 30 Days #30 tab 09/24/20 02/13/21 Unknown Rx nitroglycerin 0.4 mg SUBLINGUAL Q5M PRN 30 Days 09/24/20 02/13/21 Unknown Rx #30 tab potassium chloride 8 meq PO DAILY PRN 30 Days #30 cap 09/24/20 02/13/21 Unknown Rx losartan 50 mg tablet 50 mg PO DAILY 30 Days #30 tab 10/15/20 02/13/21 Unknown Rx aspirin 81 mg PO DAILY 02/13/21 02/13/21 02/12/21 History levothyroxine 25 mcg PO DAILY 02/13/21 02/13/21 Unknown History Allergies Allergy/AdvReac Type Severity Reaction Status Date / Time bupropion [From Wellbutrin] Allergy ADR-Nausea Verified 02/10/21 08:39 Current Medications Current Medications Generic Name Dose Route Start Last Admin Trade Name Freq PRN Reason Stop Dose Admin Aspirin 325 mg 02/13/21 16:30 02/13/21 17:03 Aspirin 325 Mg Tablet PO 325 mg DAILY ABBY Administration Enoxaparin Sodium 50 mg 02/13/21 17:00 02/13/21 17:03 Enoxaparin 60 Mg/0.6 Ml Syringe SUBCUT 50 mg Q12H ABBY Administration Famotidine 20 mg 02/13/21 18:00 02/13/21 17:03 Famotidine 20 Mg Tablet PO 20 mg BID ABBY Administration Prednisone 40 mg 02/13/21 15:30 02/13/21 17:03 Prednisone 20 Mg Tablet PO 40 mg DAILY ABBY Administration PFSH Acute PFSH: Medical History Aortic valve stenosis Atherosclerosis of coronary artery of [place] heart without angina pectoris Benign essential hypertension Cardiomyopathy due to hypertension, with heart failure Dyslipidemia History of smoking 30 or more pack years Osteoporosis, post-menopausal Pulmonary hypertension Severe aortic valve stenosis Situational anxiety Surgical History History of laparoscopy To look at tubes in [place] Family History Mother Hypertension Father Hypertension Brother CAD (coronary artery disease) Cancer Denies family history of Diabetes Clotting disorder Dementia Chronic kidney disease (CKD) Suicide Anesthesia complication Bleeding disorder Lung disease Stroke Social History Smoking and tobacco status: current some day smoker cigarettes Quit status (tobacco): has tried quititng Second hand smoke exposure: No Smoking risk assessment/counseling performed?: No Alcohol intake: current Alcohol type: beer Desire information about alcohol rehabilitation?: No Counseling given: No Desire information about substance/drug rehabilitation?: No Counseling given: No Adopted: No Caregiver/support person: No Lives independently: Yes Household members: spouse Housing: House Marital status: service: No Current occupational status: retired History of recent travel: Yes ([place]) Out of state: No Current gender identity: Female Vitals/I&O/Wt Last Vital Signs Temp 97.6 F 02/13/21 16:00 Pulse 82 02/13/21 16:00 Resp 17 02/13/21 16:00 BP 171/93 02/13/21 16:00 Pulse Ox 96 02/13/21 16:00 02/13/21 02/13/21 02/13/21 06:59 14:59 22:59 Intake Total 50 / 50 Balance 50 / 50 Weight last 48 hrs Weight 109 lb Physical Exam Narrative: EXAM NARRATIVE: GENERAL: The patient is alert and oriented times three. Not in any acute distress. HEENT: No significant pallor, icterus or lymphadenopathy. The pupils are reactant to light. Oral cavity: There are no mucous membrane lesions. Funduscopic examination: The fundus is not visualized NECK: Trachea appears to be central. No masses noted. No JVD or thyromegaly appreciated. No carotid bruit. RESPIRATORY: Chest is symmetrical. No intercostals muscle retraction or any accessory muscle activation. There is no chest wall tenderness. Breath sounds are heard bilaterally. No rales or rhonchi heard. No evidence of any consolidation. BREASTS: Deferred. HEART: The PMI is in the 5th left intercostals space just inside the midclavicular line. No palpable precordial events. S1 and S2 are normal. No S3 or S4 heard. No pericardial rub or any click heard. Ejection systolic murmur of grade 4/6 in the aortic area. Early systolic murmur of grade 3/6 in the mitral area. No diastolic murmurs. No pericardial rub. ABDOMEN: No vessel pulsations or distention. No tenderness. No organomegaly appreciated. No abdominal bruit. Bowel sounds are normally heard. : Deferred. RECTAL: Deferred. LYMPHATIC: No lymphadenopathy noted in the neck or groin. EXTREMITIES: No edema or cyanosis. No clubbing. The pulses are palpable but of low volume and amplitude. MUSCULOSKELETAL: Gait is normal. There is no joint deformity or swelling noted. No joint tenderness or any effusion. SKIN: There are no significant scars or skin rash noted. NEUROPSYCHIATRIC: The patient is alert and oriented x3. Appears to be in a good mood. The higher functions are grossly within normal limits. No tremors or rigidity noted. Data Labs: Other Labs: Laboratory Last Values WBC 6.4 10^3/uL (4.0- 10.0) 02/13/21 09:00 RBC 5.00 10^6/uL (4.1 -5.3) 02/13/21 09:00 Hgb 14.7 g/dL (11.5-1 5.3) 02/13/21 09:00 Hct 47.5 % (37.0-47.0 ) H 02/13/21 09:00 MCV 95.0 fL (81-99) 02/13/21 09:00 MCH 29.4 pg (28.0-34. 0) 02/13/21 09:00 MCHC 30.9 g/dL (30.0-3 6.0) 02/13/21 09:00 RDW 15.1 % (12.1-15.1 ) 02/13/21 09:00 Plt Count 358 10^3/cmm (130 -400) 02/13/21 09:00 MPV 10.8 fL (7.4-10.4 ) H 02/13/21 09:00 Neut % (Auto) 65.0 % 02/13/21 09:00 Lymph % (Auto) 27.8 % 02/13/21 09:00 [place] % (Auto) 3.0 % 02/13/21 09:00 Eos % (Auto) 2.4 % 02/13/21 09:00 Baso % (Auto) 1.3 % 02/13/21 09:00 Neut # (Auto) 4.14 10^3/uL (1.8 -7.7) 02/13/21 09:00 Lymph # (Auto) 1.8 10^3/uL (0.8- 4.8) 02/13/21 09:00 [place] # (Auto) 0.2 10^3/uL (0.2- 0.9) 02/13/21 09:00 Eos # (Auto) 0.2 10^3/uL (0.0- 0.8) 02/13/21 09:00 Baso # (Auto) 0.1 10^3/uL (0.0- 0.1) 02/13/21 09:00 Nucleated RBC % (a uto) 0 % 02/13/21 09:00 Nucleated RBCs # 0.0 /100WBC 02/13/21 09:00 PT 13.80 SECONDS (12 .1-14.9) 02/13/21 09:00 INR 1.03 (0.8-1.2) 02/13/21 09:00 D-Dimer 1.92 ug/mIFEU (0- 0.59) H 02/13/21 09:00 Specimen Type Arterial 02/13/21 08:33 Sample Site Radial, left 02/13/21 08:33 ABG pH 7.38 (7.35-7.45) 02/13/21 08:33 ABG pCO2 29.7 mmHg (35-45) L 02/13/21 08:33 ABG pO2 59.7 mmHg (80.0-1 00.0) L 02/13/21 08:33 ABG HCO3 17.5 mmol/L (22-2 6) L 02/13/21 08:33 ABG O2 Saturation 89.2 02/13/21 08:33 ABG Base Excess -6.4 mmol/L (-2.0 -2.0) L 02/13/21 08:33 Bart Test Pos 02/13/21 08:33 A-a O2 Gradient 6.6 mmHg (5-10) 02/13/21 08:33 Hematocrit 43.6 % (37-47) 02/13/21 08:33 Hgb O2 Saturation 86.0 % (95-100) L 02/13/21 08:33 Carboxyhemoglobin 3.3 %THgb (0.4-20 .1) 02/13/21 08:33 Methemoglobin 0.3 % (0.4-1.5) L 02/13/21 08:33 Total Hemoglobin 14.2 g/dL (12-16) 02/13/21 08:33 Sodium 138.0 mmol/L (131 -143) 02/13/21 08:33 Potassium 3.5 mmol/L (3.5-5 .0) 02/13/21 08:33 Glucose 221.0 mg/dL (70-1 15) H 02/13/21 08:33 Ionized Calcium 1.1 mmol/L (1.1-1 .4) 02/13/21 08:33 O2 Delivery Device Nc 02/13/21 08:33 O2 Liters/Min 2.0 % 02/13/21 08:33 Rn Eligibility ID Cak 02/13/21 08:33 Sodium 138 mmol/L (136-1 45) 02/13/21 09:00 Potassium 4.1 mmol/L (3.5-5 .1) 02/13/21 09:00 Chloride 103 mmol/L (98-10 7) 02/13/21 09:00 Carbon Dioxide 19 mmol/L (22-29) L 02/13/21 09:00 Anion Gap 20.1 (5-19) H 02/13/21 09:00 BUN 15 mg/dL (8-23) 02/13/21 09:00 Creatinine 0.6 mg/dL (0.5-0. 9) 02/13/21 09:00 GFR Calculation 99.4 mL/min (90-1 30) 02/13/21 09:00 Glucose 207 mg/dL (65-115 ) H 02/13/21 09:00 Calculated Osmolal ity 293 mOsm/kg (285- 295) 02/13/21 09:00 Lactic Acid 5.0 mmol/L (0.5-2 .2) H* 02/13/21 09:00 Lactate 1.6 mmol/L (0.5-2 .2) 02/13/21 11:02 Calcium 8.8 mg/dL (8.5-10 .5) 02/13/21 09:00 Magnesium 1.9 mg/dL (1.7-2. 3) 02/13/21 09:00 Total Bilirubin 0.5 mg/dL (0.15-1 .2) 02/13/21 09:00 GGT 44 U/L (5-36) H 02/13/21 15:00 AST 52 U/L (0-32) H 02/13/21 09:00 ALT 45 U/L (0-33) H 02/13/21 09:00 Alkaline Phosphata se 153 IU/L (35-105) H 02/13/21 09:00 Troponin T Baselin e 14 ng/L (0-10) H 02/13/21 09:00 Troponin T 120 Min [place] 30.44 ng/L (0-10) H 02/13/21 11:02 Delta Troponin T 16.44 ABS# (0-10) H* 02/13/21 11:02 Troponin T Hi Sens 6Hr 42.56 ng/L (0-10) H 02/13/21 15:00 Troponin T Hi Sens 6Hr Delta 28.56 ng/L (0-12) H* 02/13/21 15:00 C-Reactive Protein 7.7 mg/L (0.0-4.9 ) H 02/13/21 09:00 NT-Pro-B Natriuret Pep 6357 pg/mL (0-125 ) H 02/13/21 09:00 Total Protein 7.2 g/dL (6.6-8.7 ) 02/13/21 09:00 Albumin 3.9 g/dL (3.5-5.2 ) 02/13/21 09:00 Globulin 3.3 g/dL (1.3-4.6 ) 02/13/21 09:00 TSH 4.44 uIU/mL (0.27 -4.20) H 02/13/21 09:00 Free T4 0.60 ng/dL (0.82- 1.77) L 02/13/21 09:00 Urine Color Yellow (Yellow) 02/13/21 09:00 Urine Appearance Clear (CLEAR) 02/13/21 09:00 Urine pH 6 (5-7) 02/13/21 09:00 Ur Specific Gravit y 1.020 (1.005-1.0 30) 02/13/21 09:00 Urine Protein 1+ (Negative) H 02/13/21 09:00 Urine Glucose (UA) 2+ (Normal) 02/13/21 09:00 Urine Ketones Negative (Negati ve) 02/13/21 09:00 Urine Blood 2+ (Negative) H 02/13/21 09:00 Urine Nitrate Negative (Negati ve) 02/13/21 09:00 Urine Bilirubin Neg (Negative) 02/13/21 09:00 Urine Urobilinogen Norm mg/dL (Negat luis) 02/13/21 09:00 Ur Leukocyte Emy ase Negative (Negati ve) 02/13/21 09:00 Urine RBC 0-4 /hpf (0-2) H 02/13/21 09:00 Urine WBC 0-4 /hpf (0-5) H 02/13/21 09:00 Ur Squamous Epith Cells Rare /hpf (0-5) 02/13/21 09:00 Amorphous Sediment Not Reportable 02/13/21 09:00 Urine Bacteria Trace /hpf (NONE) 02/13/21 09:00 Hyaline Casts 0-4 /lpf H 02/13/21 09:00 SARS-CoV-2 Ag (Rap id) Negative (Negati ve) 02/13/21 12:13 Imaging^: Cardiac catheterization: My impression: Done on 09/25/2020 revealed * The left main is a medium caliber vessel with calcification at the ostium causing around 20% narrowing. * The left anterior descending artery is a medium caliber vessel which appears to wrap around the LV apex minimally. Near to the apex, the artery appears to trifurcate. There is a 60 to 70% narrowing at the ostium of all the trifurcation vessels. The first diagonal branch was found to have around 40% ostial narrowing. Minimal intimal irregularities are noted at the mid to distal segment of the left anterior descending artery. * The left circumflex artery is a medium caliber co-dominant vessel which was found to have mild diffuse intimal irregularities in the mid segment. The first obtuse marginal artery was found to have around 90% ostial narrowing. No other significant stenotic lesions were seen. * The right coronary artery is a medium caliber codominant vessel which was found to have around 80% lesion at the mid segment. Rest of the vessel was found to have mild diffuse intimal irregularities. Echo: My impression: Done on 02/13/2021 revealed Normal LV size 2 cm ejection fraction of around 38%(visual). Diffuse hypokinesia left ventricle. Grade 3 left ventricular diastolic dysfunction . Mildly increased left atrial size. Thickened mitral valve. At least moderate mitral regurgitation . Moderate calcification in the anterior mitral leaflet. Severe aortic valve stenosis with a valve area of 0.82 cm card. Peak velocity of 3.271 m/s with a peak gradient of 55 and a mean gradient of 21 mmHg. The valve index was 0.58. Trace to mild aortic valve regurgitation. Mild tricuspid valve regurgitation. Estimated pulmonary artery peak systolic pressure of 22 mmHg. There is no pericardial effusion. There are no intracardiac masses. Compared to the previous study from 09/10/2020, there may not be a significant change EKG^: EKG 1: My Interpretation: The EKG showed normal sinus rhythm with a features of left atrial enlargement. Some nonspecific ST changes. Otherwise unremarkable. A&P Assessment and plan (1) Non-ST elevation myocardial infarction (NSTEMI): Her clinical features may suggest an acute non-ST relation myocardial infarction complicated with heart failure. Her EKGs are nonspecific. Patient has no chest pain. Possibility of progression of disease in the [place] vessels versus stent occlusion are considerations. Patient may be treated with subcu Lovenox, Plavix, aspirin, beta-rom, statin and other current medications. She needs to be closely watched on telemetry. Status: Acute (2) Cardiomyopathy due to hypertension, with heart failure: The etiology of the cardiomyopathy is not clear. Most likely this could be a nonischemic cardiomyopathy. Even after the coronary intervention, there appears to be no significant improvement in the LV ejection fraction. May go up on the losartan. We also may consider Entresto. Status: Acute (3) Severe aortic valve stenosis: Seems to have a low gradient severe aortic valve stenosis. May consider doing a dobutamine echo to rule out the pseudoaortic stenosis Status: Chronic (4) Atherosclerosis of coronary artery of [place] heart without angina pectoris: We may consider doing a myocardial perfusion imaging to further evaluate the coronary status and decide on further management. Status: Acute Qualifiers: Coronary Disease-Associated Artery/Lesion type: [place] artery Qualified Code(s): I25.10 - Atherosclerotic heart disease of [place] coronary artery without angina pectoris Additional A&P Information Based on the patient's the clinical progress of the results of the above, further recommendations will be made. 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
[2021-02-13] MEDS: losartan 50 mg Tablet 100 MG PO (19:28)
[2021-02-13] MEDS: albuterol 8 gm MDI 2 PUFF INHALATION ×2 (20:20→23:31)
[2021-02-14] VITALS (14 sets, daily range): BP systolic 121–179; BP diastolic 73–87; PULSE 58–84; RESP 16–20; TEMP 35.9–37.4; O2SAT 93–99
[2021-02-14] MEDS: propranolol 20 mg Tablet 5 MG PO ×4 (00:18→20:17)
[2021-02-14] MEDS: atorvastatin 40 mg Tablet PO ×2 (00:19→20:17)
[2021-02-14] MEDS: albuterol 8 gm MDI 2 PUFF INHALATION ×3 (04:30→19:56)
[2021-02-14] MEDS: enoxaparin 60 mg/0.6 mL Syringe 50 MG SUBCUT ×2 (05:41→17:35)
[2021-02-14] MEDS: FUROsemide 10 mg/mL SDV 4mL 40 MG IVP (05:54)
[2021-02-14 06:23] LABS: Basophils # 0.1 10^3/uL (0.0-0.1); Basophils % 0.7 %; Hematocrit 44.7 % (37.0-47.0); Hemoglobin 14.1 g/dL (11.5-15.3); Lymphocytes # 2.1 10^3/uL (0.8-4.8); Lymphocytes % 25.8 %; Mean Corpuscular HGB Conc 31.5 g/dL (30.0-36.0); Mean Corpuscular Hemoglobin 29.4 pg (28.0-34.0); Mean Corpuscular Volume 93.1 fL (81-99); Mean Platelet Volume 11.3 fL (7.4-10.4); Monocytes # 0.4 10^3/uL (0.2-0.9); Monocytes % 4.7 %; Neutrophils % 68.4 %; Nucleated Red Blood Cells % 0 %; Platelet Count 349 10^3/cmm (130-400); White Blood Count 8.1 10^3/uL (4.0-10.0)
[2021-02-14 06:39] LABS: Alanine Aminotransferase 36 U/L (0-33); Albumin Level 3.5 g/dL (3.5-5.2); Alkaline Phosphatase 143 IU/L (35-105); Anion Gap 14.1 (5-19); Aspartate Amino Transferase 30 U/L (0-32); Blood Urea Nitrogen 18 mg/dL (8-23); Calcium 8.8 mg/dL (8.5-10.5); Carbon Dioxide 24 mmol/L (22-29); Chloride 102 mmol/L (98-107); Globulin 4.2 g/dL (1.3-4.6); Glomerular Filtration Rate 122.7 mL/min (90-130); Glucose 106 mg/dL (65-115); Osmolality Calculated 284 mOsm/kg (285-295); Potassium 4.1 mmol/L (3.5-5.1); Sodium 136 mmol/L (136-145); Total Bilirubin 0.6 mg/dL (0.15-1.2); Total Protein 7.7 g/dL (6.6-8.7)
--- NOTE | 2021-02-14 08:50 | ECG_ITS ---
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 Interpretive Statements NAME OF STUDY: LEXISCAN SESTAMIBI STRESS TEST INDICATION: Shsd/nstemi PROCEDURE: At the baseline, the EKG revealed normal sinus rhythm with normal ST-T's. The baseline blood pressure was 179/89 mm Hg with a heart rate of 67 beats/min. Lexiscan was infused over a period of 20 seconds. A total of 0.4 milligrams of Lexiscan was infused. The stress phase was continued for a total of 5 minutes. Heart rate at the end of the stress phase was 135 with a blood pressure 200/115. The EKG at the peak infusion revealed no significant changes. Sestamibi was injected 20 seconds after the Lexiscan infusion. Blood pressure at the end of the recovery phase was 179/87 with a heart rate of 79 per minute. CONCLUSION: 1. No significant EKG changes with the7 LexiScan infusion 2. No LexiScan induced chest pain or cardiac arrhythmia 3. Hypertensive response to Lexiscan infusion. 4. Sestamibi/sestamibi perfusion scan pending; see separate report. Electronically Signed On 02-28-2021 16:39:45 CDT by Juan Savage M.D. [email or web address]
--- NOTE | 2021-02-14 08:51 | NMCV_ITS ---
NM arnie perf SPECT r/s* [id number] Bijal Alegria Age: 70 Gender: F : 1950 Exam Date: 02/14/2021 00:08 Ordering Phys: Juan Savage MD ([email or web address]) Technologist: OLIVIER Godwin Exam Location: [facility] Indications: SOB STRESS TEST Please see separate stress test report in [facility] for full findings IMAGE PROTOCOL Rest/Stress 1 Lexiscan Day Radiopharmaceutical Dose (mCi) Administration Site Administered by Rest: Tc-99m 10.8 IV OLIVIER Godwin Sestamibi Stress:Tc-99m 32.9 IV OLIVIER Godwin Sestamibi Rest: 14-Feb-2021 60 Discovery 630 Stress: 14-Feb-2021 45 Discovery 630 0.4mg Lexiscan. Images obtained in supine and prone position. SPECT RESULTS Technical Quality: Excellent Raw Data Analysis: Normal Image Corrections: No attenuation or motion correction applied Summed Stress Score: 6 Summed Rest Score: 4 Summed Difference Score: 2 PERFUSION FINDINGS Small to moderate area of moderately decreased tracer uptake in the mid and apical inferior wall region, with no significant reversibility. Small to moderate slightly decreased tracer uptake in the mid inferolateral and apical lateral region with some reversibility only in the supine imaging. FUNCTIONAL RESULTS (calculated via Gated SPECT) Stress Image LV EF (%): 37 Stress EDV (mL):142 TID: 0.89 Stress ESV (mL):90 FUNCTIONAL FINDINGS: Segmental wall motion analysis revealed moderate diffuse hypokinesis of left ventricle. IMPRESSIONS 1. Myocardial perfusion imaging revealing a small to moderate area of persistent decreased tracer uptake in the inferior wall region, suggestive of myocardial scarring in the distribution of the right coronary artery. 2. Small to moderate area of slightly decreased tracer uptake in the inferolateral region, with inconsistent reversibility, most likely artifactual. 3. Diminished LV ejection fraction of 37%. 4. Moderately dilated LV cavity with an end systolic volume of 90 mL Possibly no significant coronary ischemia, based on the findings Dr Juan Savage MD FACC (Electronically Signed) Final Date: 14 February 2021 15:14 S
[2021-02-14] MEDS: clopidogrel 75 mg Tablet PO (09:32)
[2021-02-14] MEDS: fluoxetine 20 mg Capsule PO (09:32)
[2021-02-14] MEDS: famotidine 20 mg Tablet PO ×2 (09:32→17:35)
[2021-02-14] MEDS: aspirin 325 mg Tablet PO (09:32)
[2021-02-14] MEDS: sacubitril/valsartan 24-26 mg Tablet 2 EACH PO ×2 (09:32→17:36)
[2021-02-14] MEDS: levothyroxine 25 mcg Tablet 37.5 MCG PO (09:33)
[2021-02-14] MEDS: predniSONE 20 mg Tablet 40 MG PO (09:33)
[2021-02-14] MEDS: spironolactone 25 mg Tablet PO (09:33)
[2021-02-14] MEDS: ondansetron 2 mg/ML SDV 2 mL 4 MG IVP (12:23)
[2021-02-14] MEDS: regadenoson 0.4 Mg/5 ml Syringe IVP (12:23)
[2021-02-14 14:42] LABS: Coronavirus Test Green County Not Detected
--- NOTE | 2021-02-14 15:14 | P.PN_ITS ---
Subjective Medications: Reviewed: Yes Medication Review Details: Current Medications Acetaminophen (Acetaminophen 325 Mg Tablet) 650 mg PO Q6H PRN PRN Reason: Mild/Mod Pain Or Temp >/= 101 Albuterol Sulfate (Albuterol 2.5 Mg/0.5 Ml Neb) 2.5 mg INHALATION Q4H.RESPI RATORY PRN PRN Reason: SHORTNESS OF BREATH Albuterol Sulfate (Albuterol 8 Gm Mdi) 2 puff INHALATION Q4H.RESPIRATORY [facility] Last Admin: 02/14/21 08:10 Dose: 2 puff Documented by: Aminophylline (Aminophylline 25 Mg/Ml Sdv 10 Ml) 25 mg IVP Q2M PRN PRN Reason: see dose instructions Stop: 02/15/21 08:50 Aspirin (Aspirin 325 Mg Tablet) 325 mg PO DAILY [facility] Last Admin: 02/14/21 09:32 Dose: 325 mg Documented by: Atorvastatin Calcium (Atorvastatin 40 Mg Tablet) 40 mg PO BEDTIME [facility] Last Admin: 02/14/21 00:19 Dose: 40 mg Documented by: Clopidogrel Bisulfate (Clopidogrel 75 Mg Tablet) 75 mg PO DAILY [facility] Last Admin: 02/14/21 09:32 Dose: 75 mg Documented by: Enoxaparin Sodium (Enoxaparin 60 Mg/0.6 Ml Syringe) 50 mg SUBCUT Q12H [facility] Last Admin: 02/14/21 05:41 Dose: 50 mg Documented by: Famotidine (Famotidine 20 Mg Tablet) 20 mg PO BID [facility] Last Admin: 02/14/21 09:32 Dose: 20 mg Documented by: Fluoxetine HCl (Fluoxetine 20 Mg Capsule) 20 mg PO DAILY [facility] Last Admin: 02/14/21 09:32 Dose: 20 mg Documented by: Furosemide (Furosemide 10 Mg/Ml Sdv 4ml) 40 mg IVP Q24H [facility] Last Admin: 02/14/21 05:54 Dose: 40 mg Documented by: Levothyroxine Sodium (Levothyroxine 25 Mcg Tablet) 37.5 mcg PO DAILY [facility] Last Admin: 02/14/21 09:33 Dose: 37.5 mcg Documented by: Nitroglycerin (Nitroglycerin 0.4 Mg Sublingual Tablet) 0.4 mg SUBLINGUAL Q5M PRN PRN Reason: Chest Pain Nitroglycerin (Nitroglycerin 0.4 Mg Sublingual Tablet) 0.4 mg SUBLINGUAL Q5M PRN PRN Reason: CHEST PAIN Stop: 02/15/21 08:50 Ondansetron HCl (Ondansetron 2 Mg/Ml Sdv 2 Ml) 4 mg IVP Q2M PRN PRN Reason: NAUSEA Last Admin: 02/14/21 12:23 Dose: 4 mg Documented by: Prednisone (Prednisone 20 Mg Tablet) 40 mg PO DAILY [facility] Last Admin: 02/14/21 09:33 Dose: 40 mg Documented by: Propranolol HCl (Propranolol 20 Mg Tablet) 5 mg PO TID [facility] Last Admin: 02/14/21 14:30 Dose: 5 mg Documented by: Sacubitril/Valsartan (Sacubitril/Valsartan 24-26 Mg Tablet) 2 each PO BID [facility] Last Admin: 02/14/21 09:32 Dose: 2 each Documented by: Spironolactone (Spironolactone 25 Mg Tablet) 25 mg PO DAILY [facility] Last Admin: 02/14/21 09:33 Dose: 25 mg Documented by: Tiotropium [place] (Tiotropium 18 Mcg Mdi) 18 mcg INHALATION DAILY.RESPIRATORY [facility] Last Admin: 02/14/21 08:10 Dose: 1 puff Documented by: Vitals/I&O/Wt Last Vital Signs Temp 99.3 F 02/14/21 14:57 Pulse 64 02/14/21 14:57 Resp 16 02/14/21 14:57 BP 159/76 02/14/21 14:57 Pulse Ox 96 02/14/21 14:57 02/14/21 02/14/21 02/14/21 06:59 14:59 22:59 Output Total 600 / 600 900 / 900 Balance -600 / -310 -900 / -900 Weight last 48 hrs Weight 109 lb Weight 109 lb Physical Exam Narrative: EXAM NARRATIVE: GENERAL: The patient is alert and oriented times three. Not in any acute distress. HEENT: No significant pallor, icterus or lymphadenopathy. Pupils are sy mmetrical oral cavity: There are no mucous membrane lesions. NECK: Trachea appears to be central. No masses noted. No JVD or thyromegaly appreciated. No carotid bruit. RESPIRATORY: Chest is symmetrical. No intercostals muscle retraction or any accessory muscle activation. There is no chest wall tenderness. Breath sounds are heard bilaterally. No rales or rhonchi heard. No evidence of any consolid ation. BREASTS: Deferred. HEART: The PMI is in the 5th left intercostals space just inside the midcl avicular line. No palpable precordial events. Soft second heart sound. no S3 or S4 heard. No pericardial rub or any click heard. Ejection systolic murmur of grade 4/6 in the aortic area. Early systolic murmur of grade 3/6 in the mitral area. No diastolic murmurs. No pericardial rub. ABDOMEN: No vessel pulsations or distention. No tenderness. No organomegaly appreciated. No abdominal bruit. Bowel sounds are normally heard. : Deferred. RECTAL: Deferred. LYMPHATIC: No lymphadenopathy noted in the neck or groin. EXTREMITIES: No edema or cyanosis. No clubbing. The pulses are palpable but of low volume and amplitude. MUSCULOSKELETAL: No acute joint deformities or swelling SKIN: There are no significant scars or skin rash noted. NEUROPSYCHIATRIC: The patient is alert and oriented x3. Appears to be in a good mood. The higher functions are grossly within normal limits. No tremors or rigi dity noted. Data : 02/14/21 05:30 02/14/21 05:30 Other Labs: Laboratory Last Values WBC 8.1 10^3/uL (4.0-10.0) 02/14/21 05:30 RBC 4.80 10^6/uL (4.1-5.3) 02/14/21 05:30 Hgb 14.1 g/dL (11.5-15.3) 02/14/21 05:30 Hct 44.7 % (37.0-47.0) 02/14/21 05:30 MCV 93.1 fL (81-99) 02/14/21 05:30 MCH 29.4 pg (28.0-34.0) 02/14/21 05:30 MCHC 31.5 g/dL (30.0-36.0) 02/14/21 05:30 RDW 15.0 % (12.1-15.1) 02/14/21 05:30 Plt Count 349 10^3/cmm (130-400) 02/14/21 05:30 MPV 11.3 fL (7.4-10.4) H 02/14/21 05:30 Neut % (Auto) 68.4 % 02/14/21 05:30 Lymph % (Auto) 25.8 % 02/14/21 05:30 Lewis % (Auto) 4.7 % 02/14/21 05:30 Eos % (Auto) 0.0 % 02/14/21 05:30 Baso % (Auto) 0.7 % 02/14/21 05:30 Neut # (Auto) 5.50 10^3/uL (1.8-7.7) 02/14/21 05:30 Lymph # (Auto) 2.1 10^3/uL (0.8-4.8) 02/14/21 05:30 Lewis # (Auto) 0.4 10^3/uL (0.2-0.9) 02/14/21 05:30 Eos # (Auto) 0.0 10^3/uL (0.0-0.8) 02/14/21 05:30 Baso # (Auto) 0.1 10^3/uL (0.0-0.1) 02/14/21 05:30 Nucleated RBC % (auto) 0 % 02/14/21 05:30 Nucleated RBCs # 0.0 /100WBC 02/14/21 05:30 PT 13.80 SECONDS (12.1-14.9) 02/13/21 09:00 INR 1.03 (0.8-1.2) 02/13/21 09:00 D-Dimer 1.92 ug/mIFEU (0-0.59) H 02/13/21 09:00 Specimen Type Arterial 02/13/21 08:33 Sample Site Radial, left 02/13/21 08:33 ABG pH 7.38 (7.35-7.45) 02/13/21 08:33 ABG pCO2 29.7 mmHg (35-45) L 02/13/21 08:33 ABG pO2 59.7 mmHg (80.0-100.0) L 02/13/21 08:33 ABG HCO3 17.5 mmol/L (22-26) L 02/13/21 08:33 ABG O2 Saturation 89.2 02/13/21 08:33 ABG Base Excess -6.4 mmol/L (-2.0-2.0) L 02/13/21 08:33 Bart Test Pos 02/13/21 08:33 A-a O2 Gradient 6.6 mmHg (5-10) 02/13/21 08:33 Hematocrit 43.6 % (37-47) 02/13/21 08:33 Hgb O2 Saturation 86.0 % (95-100) L 02/13/21 08:33 Carboxyhemoglobin 3.3 %THgb (0.4-20.1) 02/13/21 08:33 Methemoglobin 0.3 % (0.4-1.5) L 02/13/21 08:33 Total Hemoglobin 14.2 g/dL (12-16) 02/13/21 08:33 Sodium 138.0 mmol/L (131-143) 02/13/21 08:33 Potassium 3.5 mmol/L (3.5-5.0) 02/13/21 08:33 Glucose 221.0 mg/dL (70-115) H 02/13/21 08:33 Ionized Calcium 1.1 mmol/L (1.1-1.4) 02/13/21 08:33 O2 Delivery Device Nc 02/13/21 08:33 O2 Liters/Min 2.0 % 02/13/21 08:33 Jewel Bearing Grinder ID Cak 02/13/21 08:33 Sodium 136 mmol/L (136-145) 02/14/21 05:30 Potassium 4.1 mmol/L (3.5-5.1) 02/14/21 05:30 Chloride 102 mmol/L (98-107) 02/14/21 05:30 Carbon Dioxide 24 mmol/L (22-29) 02/14/21 05:30 Anion Gap 14.1 (5-19) 02/14/21 05:30 BUN 18 mg/dL (8-23) 02/14/21 05:30 Creatinine 0.5 mg/dL (0.5-0.9) 02/14/21 05:30 GFR Calculation 122.7 mL/min (90-130) 02/14/21 05:30 Glucose 106 mg/dL (65-115) 02/14/21 05:30 Calculated Osmolality 284 mOsm/kg (285-295) L 02/14/21 05:30 Lactic Acid 5.0 mmol/L (0.5-2.2) H* 02/13/21 09:00 Lactate 1.6 mmol/L (0.5-2.2) 02/13/21 11:02 Calcium 8.8 mg/dL (8.5-10.5) 02/14/21 05:30 Magnesium 1.9 mg/dL (1.7-2.3) 02/13/21 09:00 Total Bilirubin 0.6 mg/dL (0.15-1.2) 02/14/21 05:30 GGT 44 U/L (5-36) H 02/13/21 15:00 AST 30 U/L (0-32) 02/14/21 05:30 ALT 36 U/L (0-33) H 02/14/21 05:30 Alkaline Phosphatase 143 IU/L (35-105) H 02/14/21 05:30 Troponin T Baseline 14 ng/L (0-10) H 02/13/21 09:00 Troponin T 120 Minute 30.44 ng/L (0-10) H 02/13/21 11:02 Delta Troponin T 16.44 ABS# (0-10) H* 02/13/21 11:02 Troponin T Hi Sens 6Hr 42.56 ng/L (0-10) H 02/13/21 15:00 Troponin T Hi Sens 6Hr Delta 28.56 ng/L (0-12) H* 02/13/21 15:00 C-Reactive Protein 7.7 mg/L (0.0-4.9) H 02/13/21 09:00 NT-Pro-B Natriuret Pep 6357 pg/mL (0-125) H 02/13/21 09:00 Total Protein 7.7 g/dL (6.6-8.7) 02/14/21 05:30 Albumin 3.5 g/dL (3.5-5.2) 02/14/21 05:30 Globulin 4.2 g/dL (1.3-4.6) 02/14/21 05:30 TSH 4.44 uIU/mL (0.27-4.20) H 02/13/21 09:00 Free T4 0.60 ng/dL (0.82-1.77) L 02/13/21 09:00 Urine Color Yellow (Yellow) 02/13/21 09:00 Urine Appearance Clear (CLEAR) 02/13/21 09:00 Urine pH 6 (5-7) 02/13/21 09:00 Ur Specific [place] 1.020 (1.005-1.030) 02/13/21 09:00 Urine Protein 1+ (Negative) H 02/13/21 09:00 Urine Glucose (UA) 2+ (Normal) 02/13/21 09:00 Urine Ketones Negative (Negative) 02/13/21 09:00 Urine Blood 2+ (Negative) H 02/13/21 09:00 Urine Nitrate Negative (Negative) 02/13/21 09:00 Urine Bilirubin Neg (Negative) 02/13/21 09:00 Urine Urobilinogen Norm mg/dL (Negative) 02/13/21 09:00 Ur Leukocyte Esterase Negative (Negative) 02/13/21 09:00 Urine RBC 0-4 /hpf (0-2) H 02/13/21 09:00 Urine WBC 0-4 /hpf (0-5) H 02/13/21 09:00 Ur Squamous Epith Cells Rare /hpf (0-5) 02/13/21 09:00 Amorphous Sediment Not Reportable 02/13/21 09:00 Urine Bacteria Trace /hpf (NONE) 02/13/21 09:00 Hyaline Casts 0-4 /lpf H 02/13/21 09:00 Nasal/Oral COVID-19 PCR Not detected 02/13/21 14:30 SARS-CoV-2 Ag (Rapid) Negative (Negative) 02/13/21 12:13 A&P Assessment and plan (1) Non-ST elevation myocardial infarction (NSTEMI): The myocardial perfusion imaging results were reviewed and discussed with the patient. Most likely, based on the findings, the patient has no significant ischemia. I may hold off on any further investigation at this point. May discontinue the therapeutic dose of Lovenox and change it to the DVT prophylaxis dose Status: Acute (2) Cardiomyopathy due to hypertension, with heart failure: Most likely this patient has nonischemic cardiomyopathy. She is tolerating the Entresto so far well. May continue the same. I will discontinue the IV Lasix and start her on p.o. Lasix 20 mg p.o. daily. Continue the spironolactone. We will do a BMP in the morning. Status: Acute (3) Severe aortic valve stenosis: We may consider doing a dobutamine stress echo to further evaluate the aortic valve stenosis as an outpatient. I would like to optimize her medical treatment with Entresto first before proceeding with the valve fixation. Status: Chronic (4) Atherosclerosis of coronary artery of [place] heart without angina pectoris: The patient was found to have a small to moderate area of mild inconsistent reversible defect in the inferolateral region, most likely artifactual. Based on these findings, we will continue on the medical treatment. Status: Acute Qualifiers: Coronary Disease-Associated Artery/Lesion type: [place] artery Qualified Code(s): I25.10 - Atherosclerotic heart disease of [place] coronary artery w ithout angina pectoris (5) Benign essential hypertension with target blood pressure below 140/90: For better control of the blood pressure, I may start her on amlodipine 2.5 mg p.o. daily. May continue other medications as it is. Status: Acute Additional A&P Information If the patient continues to remain stable, may be discharged home tomorrow, after being seen by the on-call cardiology. Please make an appointment to be seen at the [facility] by the nurse practitioner in a week. I may see her in the office in 1 month. Attestations Medical Necessity Statement*: Possible discharge home tomorrow Coding Level of Care Code Acute Web Art Director for Mara Landon Diagnoses Non-ST elevation myocardial infarction (NSTEMI) I21.4 Cardiomyopathy due to hypertension, with heart failure I11.0; I43 Severe aortic valve stenosis I35.0 Atherosclerosis of coronary artery of [place] heart without angina pectoris I25.10 Coronary Disease-Associated Artery/Lesion type: [place] artery Benign essential hypertension with target blood pressure below 140/90 I10
[2021-02-14] MEDS: amlodipine 5 mg Tablet 2.5 MG PO (17:35)
--- NOTE | 2021-02-14 18:40 | PC.NURSE ---
Stress test uneventful. Pt will need aortic valve replacement, to be determined in clinic setting. Will likely d/c tomorrow.
--- NOTE | 2021-02-14 22:59 | PM.PN ---
Subjective Subjective: Interval history: She states is doing all right after stress test. Overall feeling better. Denies chest pain or pressure. Currently breathing comfortably. Vitals/I&O/Wt Last Vital Signs Temp 98.2 F 02/14/21 20:12 Pulse 58 L 02/14/21 20:12 Resp 20 H 02/14/21 20:12 BP 121/73 02/14/21 20:12 Pulse Ox 93 02/14/21 20:12 02/14/21 02/14/21 02/14/21 06:59 14:59 22:59 Intake Total 360 / 360 Output Total 600 / 600 900 / 900 200 / 1100 Balance -600 / -310 -900 / -900 160 / -740 Weight last 48 hrs Weight 49.442 kg Weight 49.442 kg Physical Exam Const: COMMON NORMALS: no acute distress and patient oriented x3 GENERAL APPEARANCE: cooperative and comfortable ORIENTATION/CONSCIOUSNESS: Yes awake HENMT: COMMON NORMALS: oropharynx normal Neck/C-Spine: COMMON NORMALS: no JVD Resp: COMMON NORMALS: normal respiratory effort and clear to auscultation bilaterally AUSCULTATION: clear to auscultation bilaterally Cardio: COMMON NORMALS: no JVD, regular rhythm, S1 normal heart sound present, S2 normal heart sound present and No murmurs present (Cardio) RHYTHM: regular rhythm HEART SOUNDS: S1 normal heart sound present and S2 normal heart sound present GI: COMMON NORMALS: Normal to inspection, nondistended, normoactive bowel sounds present, Soft to palpation and non-tender PALPATION: Yes Soft to palpation Extremity: COMMON NORMALS: no joint enlargement and no pedal edema Neuro: COMMON NORMALS: patient oriented x3 and moves all extremities Skin: COMMON NORMALS: no rashes or lesions noted GENERAL SKIN EXAM: no rashes or lesions noted Data : 02/14/21 05:30 02/14/21 05:30 A&P Assessment and plan (1) Acute CHF: Discussed with cardiology as well as with her. She is being initiated on new medications. Cardiology requests to monitor overnight. If does well, possible tentative discharge tomorrow. Changed to p.o. Lasix. Cardiac diet. Avoid hypovolemia/hypotension given severe aortic stenosis. Status: Acute (2) Acute respiratory failure with hypoxia: Significantly improved respiratory status. Weaned off oxygen support. Sounds much better. Sputum culture. Flutter valve. Status: Acute (3) Flash pulmonary edema: As above. Also she notes she snores at night. Would benefit from sleep study. Status: Acute (4) Acute bronchitis: As above. Status: Acute (5) Lactic acidosis: Suspect hypoperfusion secondary to acute CHF, flash pulmonary edema, hypoxia. Resolved with diuresis, oxygen support. Status: Acute (6) Transaminitis: Mild elevation of GGT. Reassess. Status: Acute (7) Troponin level elevated: Very small area of ischemia on stress testing. Recommendation for medical therapy by cardiology. Discussed with her. She is doing well. Denies chest pain. Troponin elevation thought to be more secondary to demand ischemia with hypoxia, respiratory failure. Status: Acute (8) Hypothyroidism: Increased levothyroxine dose to 37.5 mcg. Status: Acute (9) Aortic valve stenosis: Additional evaluation per cardiology to be completed on outpatient basis after she recovers from acute illness. She and cardiology are working regarding consideration of referral for repair depending on findings from additional studies. Status: Acute Qualifiers: Cardiac valve disease etiology: nonrheumatic Qualified Code(s): I35.0 - Nonrheumatic aortic (valve) stenosis Attestations Medical Necessity Statement*: Continue admission for optimization of treatment for congestive heart failure by cardiology with recommended inpatient monitoring, monitoring of improvement from acute respiratory failure, flash pulmonary edema, CHF, troponin elevation in a lady with underlying severe aortic stenosis. Coding Level of Care Code Acute Electromechanical Technician for [facility] Dipesh Diagnoses Acute CHF I50.9 Acute respiratory failure with hypoxia J96.01 Flash pulmonary edema J81.0 Acute bronchitis J20.9 Lactic acidosis E87.2 Transaminitis R74.01 Troponin level elevated R77.8 Hypothyroidism E03.9 Aortic valve stenosis I35.0 Cardiac valve disease etiology: nonrheumatic
[2021-02-15] VITALS (10 sets, daily range): BP systolic 121–144; BP diastolic 71–81; PULSE 58–73; RESP 16–20; TEMP 36.1–37.1; O2SAT 94–99
[2021-02-15] MEDS: enoxaparin 60 mg/0.6 mL Syringe 50 MG SUBCUT (05:44)
[2021-02-15 06:18] LABS: Basophils # 0.1 10^3/uL (0.0-0.1); Basophils % 0.9 %; Eosinophils # 0.1 10^3/uL (0.0-0.8); Eosinophils % 1.2 %; Hematocrit 47.8 % (37.0-47.0); Hemoglobin 15.1 g/dL (11.5-15.3); Lymphocytes # 3.5 10^3/uL (0.8-4.8); Lymphocytes % 33.5 %; Mean Corpuscular HGB Conc 31.6 g/dL (30.0-36.0); Mean Corpuscular Hemoglobin 29.4 pg (28.0-34.0); Mean Corpuscular Volume 93.2 fL (81-99); Mean Platelet Volume 11.3 fL (7.4-10.4); Monocytes # 0.6 10^3/uL (0.2-0.9); Monocytes % 5.5 %; Neutrophils # 6.12 10^3/uL (1.8-7.7); Neutrophils % 58.5 %; Nucleated Red Blood Cells % 0 %; Platelet Count 390 10^3/cmm (130-400); Red Blood Count 5.13 10^6/uL (4.1-5.3); Red Cell Distribution Width 15.2 % (12.1-15.1); White Blood Count 10.4 10^3/uL (4.0-10.0)
[2021-02-15 06:45] LABS: Alanine Aminotransferase 27 U/L (0-33); Albumin Level 3.5 g/dL (3.5-5.2); Alkaline Phosphatase 121 IU/L (35-105); Aspartate Amino Transferase 21 U/L (0-32); Blood Urea Nitrogen 23 mg/dL (8-23); Calcium 9.1 mg/dL (8.5-10.5); Carbon Dioxide 25 mmol/L (22-29); Chloride 101 mmol/L (98-107); Globulin 3.9 g/dL (1.3-4.6); Glomerular Filtration Rate 122.7 mL/min (90-130); Glucose 95 mg/dL (65-115); Osmolality Calculated 287 mOsm/kg (285-295); Sodium 137 mmol/L (136-145); Total Bilirubin 0.4 mg/dL (0.15-1.2); Total Protein 7.4 g/dL (6.6-8.7)
[2021-02-15] MEDS: albuterol 8 gm MDI 2 PUFF INHALATION ×2 (07:52→10:59)
[2021-02-15] MEDS: amlodipine 5 mg Tablet 2.5 MG PO (08:12)
[2021-02-15] MEDS: fluoxetine 20 mg Capsule PO (08:12)
[2021-02-15] MEDS: aspirin 325 mg Tablet PO (08:12)
[2021-02-15] MEDS: clopidogrel 75 mg Tablet PO (08:12)
[2021-02-15] MEDS: famotidine 20 mg Tablet PO (08:12)
[2021-02-15] MEDS: FUROsemide 20 mg Tablet PO (08:12)
[2021-02-15] MEDS: levothyroxine 25 mcg Tablet 37.5 MCG PO (08:13)
[2021-02-15] MEDS: predniSONE 20 mg Tablet 40 MG PO (08:13)
[2021-02-15] MEDS: propranolol 20 mg Tablet 5 MG PO (08:13)
[2021-02-15] MEDS: sacubitril/valsartan 24-26 mg Tablet 2 EACH PO (08:14)
[2021-02-15] MEDS: spironolactone 25 mg Tablet PO (08:14)
--- NOTE | 2021-02-15 12:58 | PM.PN ---
Subjective Subjective: Interval history: Patient feels well denies any complaints and is ready to go home. Medications: Reviewed: Yes Medication Review Details: Current Medications Acetaminophen (Acetaminophen 325 Mg Tablet) 650 mg PO Q6H PRN PRN Reason: Mild/Mod Pain Or Temp >/= 101 Albuterol Sulfate (Albuterol 2.5 Mg/0.5 Ml Neb) 2.5 mg INHALATION Q4H.RESPIRATORY PRN PRN Reason: SHORTNESS OF BREATH Albuterol Sulfate (Albuterol 8 Gm Mdi) 2 puff INHALATION Q4H.RESPIRATORY [facility] Last Admin: 02/15/21 10:59 Dose: 2 puff Documented by: Amlodipine Besylate (Amlodipine 5 Mg Tablet) 2.5 mg PO DAILY [facility] Last Admin: 02/15/21 08:12 Dose: 2.5 mg Documented by: Aspirin (Aspirin 325 Mg Tablet) 325 mg PO DAILY [facility] Last Admin: 02/15/21 08:12 Dose: 325 mg Documented by: Atorvastatin Calcium (Atorvastatin 40 Mg Tablet) 40 mg PO BEDTIME [facility] Last Admin: 02/14/21 20:17 Dose: 40 mg Documented by: Clopidogrel Bisulfate (Clopidogrel 75 Mg Tablet) 75 mg PO DAILY [facility] Last Admin: 02/15/21 08:12 Dose: 75 mg Documented by: Enoxaparin Sodium (Enoxaparin 60 Mg/0.6 Ml Syringe) 50 mg SUBCUT Q12H [facility] Last Admin: 02/15/21 05:44 Dose: 50 mg Documented by: Famotidine (Famotidine 20 Mg Tablet) 20 mg PO BID [facility] Last Admin: 02/15/21 08:12 Dose: 20 mg Documented by: Fluoxetine HCl (Fluoxetine 20 Mg Capsule) 20 mg PO DAILY [facility] Last Admin: 02/15/21 08:12 Dose: 20 mg Documented by: Furosemide (Furosemide 20 Mg Tablet) 20 mg PO DAILY@0800 [facility] Last Admin: 02/15/21 08:12 Dose: 20 mg Documented by: Levothyroxine Sodium (Levothyroxine 25 Mcg Tablet) 37.5 mcg PO DAILY [facility] Last Admin: 02/15/21 08:13 Dose: 37.5 mcg Documented by: Nitroglycerin (Nitroglycerin 0.4 Mg Sublingual Tablet) 0.4 mg SUBLINGUAL Q5M PRN PRN Reason: Chest Pain Ondansetron HCl (Ondansetron 2 Mg/Ml Sdv 2 Ml) 4 mg IVP Q2M PRN PRN Reason: NAUSEA Last Admin: 02/14/21 12:23 Dose: 4 mg Documented by: Prednisone (Prednisone 20 Mg Tablet) 40 mg PO DAILY [facility] Last Admin: 02/15/21 08:13 Dose: 40 mg Documented by: Propranolol HCl (Propranolol 20 Mg Tablet) 5 mg PO TID [facility] Last Admin: 02/15/21 08:13 Dose: 5 mg Documented by: Sacubitril/Valsartan (Sacubitril/Valsartan 24-26 Mg Tablet) 2 each PO BID [facility] Last Admin: 02/15/21 08:14 Dose: 2 each Documented by: Spironolactone (Spironolactone 25 Mg Tablet) 25 mg PO DAILY [facility] Last Admin: 02/15/21 08:14 Dose: 25 mg Documented by: Tiotropium [place] (Tiotropium 18 Mcg Mdi) 18 mcg INHALATION DAILY.RESPIRATORY [facility] Last Admin: 02/15/21 07:53 Dose: 1 puff Documented by: Vitals/I&O/Wt Last Vital Signs Temp 96.9 F L 02/15/21 11:02 Pulse 62 02/15/21 11:05 Resp 17 02/15/21 11:02 BP 131/77 02/15/21 11:02 Pulse Ox 99 02/15/21 11:02 02/14/21 02/15/21 02/15/21 22:59 06:59 14:59 Intake Total 360 / 360 840 / 840 Output Total 200 / 1100 250 / 1350 Balance 160 / -740 -250 / -990 840 / 840 Weight last 48 hrs Weight 106 lb 14.4 oz Weight 109 lb Physical Exam Narrative: EXAM NARRATIVE: GENERAL: Averagely built and averagely nourished in no acute distress HEENT: Extraocular movement intact. Pupils equal round reactive to light. No pallor or icterus. NECK: central trachea, no JVD, No carotid bruit. CARDIOVASCULAR SYSTEM: S1-S2 regular. Grade 3/6 systolic murmur present in aortic and mitral areas RESPIRATORY SYSTEM: Chest clear to auscultation. No wheezes rhonchi or rubs heard. ABDOMEN: Soft, nontender and nondistended. Normal bowel sounds present. EXTREMITIES: No cyanosis or clubbing. No edema. No signs of chronic venous insufficiency. COMPUTER AIDED DESIGN DRAFTER: Patient is alert oriented ?3. No focal neurological deficits. SKIN: Normal turgor and temperature. PSYCH: Normal insight and judgment. Data : 02/15/21 04:44 02/15/21 04:44 Other data: TTE (02/13/21) CONCLUSIONS Normal LV size 2 cm ejection fraction of around 38%(visual). Diffuse hypokinesia left ventricle. Grade 3 left ventricular diastolic dysfunction . Mildly increased left atrial size. Thickened mitral valve. At least moderate mitral regurgitation . Moderate calcification in the anterior mitral leaflet. Severe aortic valve stenosis with a valve area of 0.82 cm card. Peak velocity of 3.271 m/s with a peak gradient of 55 and a mean gradient of 21 mmHg. The valve index was 0.58. Trace to mild aortic valve regurgitation. Mild tricuspid valve regurgitation. Estimated pulmonary artery peak systolic pressure of 22 mmHg. There is no pericardial effusion. There are no intracardiac masses. Compared to the previous study from 09/10/2020, there may not be a significant change A&P Assessment and plan (1) Acute CHF: Nonischemic cardiomyopathy. -In setting of valvular heart disease. - Continue Entresto, spironolactone and Lasix. - stable to be discharged home from cardiac standpoint . -Follow-up with Ms. Sarahi Moreland in [address] Savage in heart care services in 4 weeks. Status: Acute Qualifiers: Heart failure type: systolic Qualified Code(s): I50.21 - Acute systolic (congestive) heart failure (2) Non-ST elevation myocardial infarction (NSTEMI): -Likely type II non-ST elevation [place] in setting of decompensated congestive heart failure -The myocardial perfusion imaging results were reviewed. Status: Acute (3) Severe aortic valve stenosis: We may consider doing a dobutamine stress echo / POP to further evaluate the aortic valve stenosis as an outpatient. -Further work-up as an outpatient by patient's primary derrick engineer. Status: Chronic (4) Atherosclerosis of coronary artery of [place] heart without angina pectoris: s/p WILMER to OM1 and mRCA (09/23/2020) and moderate disease in distal LAD. Lexiscan sestamibi MPI (02/14/21) The patient was found to have a small to moderate area of mild inconsistent reversible defect in the inferolateral region, most likely artifactual. Based on these findings, we will continue on the medical treatment. Status: Acute Qualifiers: Coronary Disease-Associated Artery/Lesion type: [place] artery Qualified Code(s): I25.10 - Atherosclerotic heart disease of [place] coronary artery without angina pectoris (5) Benign essential hypertension with target blood pressure below 140/90: For better control of the blood pressure, I may start her on amlodipine 2.5 mg p.o. daily. May continue other medications as it is. Status: Acute Additional A&P Information At least moderate mitral valve regurgitation Hypothyroidism Attestations Medical Necessity Statement*: Stable to be discharged home from cardiac standpoint Time Spent in Patient Care: 16 - 35 minutes (>than 50% of time spent in counselling and/or direct pt care on unit). Coding Level of Care Code Acute Service Or Work Dispatcher for Mara Landon Diagnoses Acute CHF I50.21 Heart failure type: systolic Non-ST elevation myocardial infarction (NSTEMI) I21.4 Severe aortic valve stenosis I35.0 Atherosclerosis of coronary artery of [place] heart without angina pectoris I25.10 Coronary Disease-Associated Artery/Lesion type: [place] artery Benign essential hypertension with target blood pressure below 140/90 I10
--- NOTE | 2021-02-15 14:28 | PM.DCS ---
Discharge Providers Date of Admission: 02/13/21 14:15 Date of Discharge: February 15, 2021 Attending Provider at Admission: Kin Luque Attending Provider at Discharge: Kin Luque Primary Care Provider: JAYMIE Vora Diagnoses at Discharge Discharge Diagnosis (1) Acute CHF: Status: Acute Qualifiers: Heart failure type: systolic Qualified Code(s): I50.21 - Acute systolic (congestive) heart failure (2) Non-ST elevation myocardial infarction (NSTEMI): Status: Acute (3) Severe aortic valve stenosis: Status: Chronic (4) Atherosclerosis of coronary artery of [place] heart without angina pectoris: Status: Acute Qualifiers: Coronary Disease-Associated Artery/Lesion type: [place] artery Qualified Code(s): I25.10 - Atherosclerotic heart disease of [place] coronary artery without angina pectoris (5) Benign essential hypertension with target blood pressure below 140/90: Status: Acute Reason for Visit Reason for Visit: Trouble Breathing Hospital Course Hospital Course Pleasant 64-year-old lady with history of severe aortic stenosis, CAD, HTN, congestive heart failure, pulmonary hypertension, current smoker, was not sure about history of COPD, not normally on supplemental oxygen presented with shortness of breath, with noted hypoxic respiratory failure, requiring 4 L of oxygen on presentation, ABG 7.38/29.7/59.7/17.5. With noted pulmonary parenchymal infiltrates thought to be secondary to congestive heart failure versus pneumonitis. With noted abnormal D-dimer was assessed by CT angiogram without finding of PE, with 80 groundglass-trace in both lower lungs, right upper lobe, noted could possibly correspond to COVID-19. Rapid antigen test, and PCR, however, both assessed during hospitalization negative. With noted elevation of NT proBNP, 6357. Afebrile, without leukocytosis, with noted lactic acidosis, metabolic acidosis on presentation. Mild elevation of liver parameters, AST 52, ALT 45. Noted mild chronic ovation of alkaline phosphatase, 153. With noted acute rise in troponins after initial elevation at 14, up to 42.56 at 6 hours. She had no chest pain, however, with risk factors of coronary disease was treated for possible non-STEMI. Assessed by cardiology. Due to wheezing on presentation, diminished lung sounds, was treated for possible bronchitis as well. On presentation also noted snoring at night, and possible contribution of obstructive sleep apnea as additional trigger of flash pulmonary edema, CHF may be considered as well. She was treated with IV diuretics. Received prednisone. Breathing treatments. Due to noted TSH elevated 4.44 with oxygen dose was increased up to 37.5 mcg. Her respiratory symptoms quite significantly improved. Echocardiogram showed ejection fraction 38%, diffuse hypokinesis of left ventricle, grade 3 diastolic dysfunction. Thickened mitral valve, at least moderate MVR. Severe aortic valve stenosis with valve area 0.82 cm. Peak velocity 3.271 m/s. Peak gradient 55 and mean gradient 21 mmHg. Valve index 0.58. Noted mild AVR. Mild TVR. Estimated PA peak pressure 20 mmHg. She was additionally assessed by nuclear Lexiscan stress test with finding of small to moderate area of mild inconsistent reversible defect in inferolateral region most likely artifactual. Cardiology recommended continuation of medical therapy. Optimization of heart failure control. She was started on Entresto, spironolactone. Lasix changed to oral. She continues on aspirin, Plavix, statin. She is doing well today, and asking to return home. She is ambulating in her room. She is doing well on room air. She is cleared for discharge by cardiology with request for additional follow-up in office, with consideration of referral for dobutamine stress echo/POP for additional assessment of aortic stenosis and consideration of referral for AVR. She is referred for sleep study. Physical Exam Narrative: EXAM NARRATIVE: Reports she is feeling much better. Walking in her room. accompanying. Const: COMMON NORMALS: no acute distress and patient oriented x3 GENERAL APPEARANCE: cooperative and comfortable ORIENTATION/CONSCIOUSNESS: Yes awake HENMT: COMMON NORMALS: oropharynx normal Neck/C-Spine: COMMON NORMALS: no JVD Resp: COMMON NORMALS: normal respiratory effort and clear to auscultation bilaterally AUSCULTATION: clear to auscultation bilaterally Cardio: COMMON NORMALS: no JVD, regular rhythm, S1 normal heart sound present, S2 normal heart sound present and No murmurs present (Cardio) RHYTHM: regular rhythm HEART SOUNDS: S1 normal heart sound present and S2 normal heart sound present GI: COMMON NORMALS: Normal to inspection, nondistended, normoactive bowel sounds present, Soft to palpation and non-tender PALPATION: Yes Soft to palpation Extremity: COMMON NORMALS: no joint enlargement and no pedal edema Neuro: COMMON NORMALS: patient oriented x3 and moves all extremities Skin: COMMON NORMALS: no rashes or lesions noted GENERAL SKIN EXAM: no rashes or lesions noted Discharge Data Data Completed and Pending: Completed Studies During Hospitalization Category Date Time Status CT angio chest PE protcl [id number] Urge nt Cat Scan 02/13/21 10:30 [address] MIBI [Sestamibi Stress Test Reque st Exams 02/14/21 08:50 Draft ] Routine XR chest 1V imelda ble [id number] Stat Exams 02/13/21 08:22 Completed CV echo complete* [id number] Urgent Ultrasound 02/13/21 15:25 Completed Pending at discharge Category Date Time Status Complete Blood Co unt w/Auto AM LABS Lab 02/16/21 04:00 Ordered Comprehensive Met abolic Panel AM LA BS Lab 02/16/21 04:00 Ordered Sputum Culture an d Gram Stain Routi ne Lab 02/13/21 15:30 Uncollected NM arnie perf SPECT r/s* [id number] Routin e Nuc Med 02/14/21 08:51 Taken Labs from last 24 hours 02/15/21 02/15/21 02/13/21 04:44 04:44 14:30 WBC 10.4 H RBC 5.13 Hgb 15.1 Hct 47.8 H MCV 93.2 MCH 29.4 MCHC 31.6 RDW 15.2 H Plt Count 390 MPV 11.3 H Neut % (Auto) 58.5 Lymph % (Auto) 33.5 Williamson % (Auto) 5.5 Eos % (Auto) 1.2 Baso % (Auto) 0.9 Neut # (Auto) 6.12 Lymph # (Auto) 3.5 Williamson # (Auto) 0.6 Eos # (Auto) 0.1 Baso # (Auto) 0.1 Nucleated RBC % (a uto) 0 Nucleated RBCs # 0.0 Sodium 137 Potassium 4.0 Chloride 101 Carbon Dioxide 25 Anion Gap 15.0 BUN 23 Creatinine 0.5 GFR Calculation 122.7 Glucose 95 Calculated Osmolal ity 287 Calcium 9.1 Total Bilirubin 0.4 AST 21 ALT 27 Alkaline Phosphata se 121 H Total Protein 7.4 Albumin 3.5 Globulin 3.9 Nasal/Oral COVID-1 9 PCR Not detected Vitals: Last Vital Signs Temp 96.9 F L 02/15/21 11:02 Pulse 62 02/15/21 11:05 Resp 17 02/15/21 11:02 BP 131/77 02/15/21 11:02 Pulse Ox 96 02/15/21 14:15 Discharge Plan Discharge Patient Disposition: Home Condition: Stable Prescriptions: New spironolactone 25 mg Tablet 25 mg PO DAILY Qty: 30 RF: 0 Entresto 24-26 mg Tablet 2 ea PO BID Qty: 60 RF: 0 Ventolin HFA 90 mcg/actuation Hfa Aerosol Inhaler 2 puff inhalation Q4H.RESPIRATORY Qty: 6.7 RF: 0 amlodipine 5 mg Tablet 2.5 mg PO DAILY Qty: 15 RF: 0 Continued fluoxetine [Prozac] 20 mg capsule 20 mg PO DAILY 30 Days Qty: 30 RF: 5 nitroglycerin 0.4 mg Tablet, Sublingual 0.4 mg sublingual Q5M PRN (Reason: Chest Pain) 30 Days Qty: 30 RF: 3 clopidogrel [Plavix] 75 mg tablet 75 mg PO DAILY 30 Days Qty: 30 RF: 5 atorvastatin 40 mg Tablet 40 mg PO BEDTIME 30 Days Qty: 30 RF: 3 furosemide [Lasix] 20 mg tablet 20 mg PO DAILY 30 Days Qty: 30 RF: 3 aspirin 81 mg tablet,delayed release (DR/EC) 81 mg PO DAILY RF: 0 Changed levothyroxine 25 mcg Tablet 37.5 mcg PO DAILY Qty: 0 RF: 0 propranolol 10 mg tablet 5 mg PO TID Qty: 90 RF: 3 Discontinued losartan 50 mg tablet 50 mg PO DAILY 30 Days Qty: 30 RF: 5 potassium chloride 8 mEq capsule, extended release 8 meq PO DAILY PRN (Reason: CHF) 30 Days Qty: 30 RF: 3 Discharge Orders: Discharge Order (Routine); Ordered 02/15/21 Ordered By: Kin Luque Other Ambulatory Orders: Sleep Study/Titration (Routine) Timeframe: 1 Week Location: None Selected Ordered By: Kin Luque Referrals: Juan Savage MD [Physician] - 1 month ([facility] will call Wednesday to set up an appointment.) Yuly Campos FNP-C [Primary Care Provider] - 4-7 days ([facility] will call you Wednesday to set up an appointment.) Sarahi Moreland FNP [Nurse Practitioner] - 1 week ([facility] will call you Wednesday to set up an appointment.) Discharge Diet: Cardiac Discharge Activity: Increase activity as tolerated and Limit activity as instructed Patient Instructions: Spironolactone (By mouth), Albuterol (By breathing), Dyspnea (GEN) Activity Restrictions/Additional Instructions: Please follow-up with your primary care doctor and temporary administrative assistant with regards to heart failure, aortic stenosis. Discussed with your primary care doctor improved bronchitis. Please follow-up with sleep study, and discuss results with your primary care doctor. Sleep apnea can contribute to episodes of congestive heart failure. Please continue follow-up with your temporary administrative assistant for arrangements of additional evaluation of aortic valve stenosis and consideration of repair. Please discuss with your primary care doctor hypothyroidism, with your TSH elevated at 4.44, levothyroxine dose increased slightly to 37.5 mcg/day. Please have your primary care doctor follow-up your thyroid function studies. 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 Please have your primary care doctor follow-up mildly elevated liver parameters to make sure they are improving back to normal or investigate further for any abnormality if they are not. Discharge Attestations Time Spent in Discharge Care*: greater than 30 min Quality Metrics Clinical Quality Measures During this hospital stay, did patient experience: None Coding Level of Care Code Acute g [facility] note Diagnoses Acute CHF I50.21 Heart failure type: systolic Non-ST elevation myocardial infarction (NSTEMI) I21.4 Severe aortic valve stenosis I35.0 Atherosclerosis of coronary artery of [place] heart without angina pectoris I25.10 Coronary Disease-Associated Artery/Lesion type: [place] artery Benign essential hypertension with target blood pressure below 140/90 I10
--- NOTE | 2021-02-17 13:37 | PC.RESP ---
SMOKING CESSATION INFORMATION SENT TO PATIENT.
== END 2021-02-15 14:30 | disposition home or self-care (01) | DRG 280 ==
LOC: ER 08:22 → MEDSURG 14:31
PROVIDERS: Admitting Provider Internal Medicine; Emergency Provider Family Medicine; PCP Nurse Practitioner; Visit Provider Internal Medicine
DX: I11.0 Hypertensive heart disease with heart failure (principal); J96.01 Acute respiratory failure with hypoxia; I21.A1 Myocardial infarction type 2; E87.2 Acidosis; I50.23 Acute on chronic systolic (congestive) heart failure; I43 Cardiomyopathy in diseases classified elsewhere; I25.10 Atherosclerotic heart disease of native coronary artery without angina pectoris; I27.20 Pulmonary hypertension, unspecified; F17.210 Nicotine dependence, cigarettes, uncomplicated; Z20.822 Contact with and (suspected) exposure to COVID-19; J20.9 Acute bronchitis, unspecified; Z79.02 Long term (current) use of antithrombotics/antiplatelets; Z79.82 Long term (current) use of aspirin; E78.5 Hyperlipidemia, unspecified; Z95.5 Presence of coronary angioplasty implant and graft; M81.0 Age-related osteoporosis without current pathological fracture; E03.9 Hypothyroidism, unspecified; R74.01 Elevation of levels of liver transaminase levels; I08.0 Rheumatic disorders of both mitral and aortic valves
CPT/HCPCS: 36415; 36600; 71045; 71275; 78452; 80051; 80053; 81001; 82330; 82805; 82977; 83605; 83735; 83880; 84439; 84443; 84484; 85025; 85378; 85610; 86140; 87426; 87635; 93005; 93017; 93306; 94640; 94664; 96365; 96372; 96375; 99285; A9500; J0696; J1650; J1940; J2405; J2785; J3535; J7512; Q9967

== ENCOUNTER → 2021-02-20 11:06 | Outpatient (BNVA) | payer MEDICARE, OTHER, SELFPAY | PROVIDERS: PCP Nurse Practitioner; Visit Provider Internal Medicine | DX: E05.00 Thyrotoxicosis with diffuse goiter without thyrotoxic crisis or storm (principal); I11.0 Hypertensive heart disease with heart failure; I43 Cardiomyopathy in diseases classified elsewhere; M81.0 Age-related osteoporosis without current pathological fracture; R74.01 Elevation of levels of liver transaminase levels | CPT/HCPCS: 99214 ==

== ENCOUNTER → 2021-04-14 09:08 | Outpatient (BNVA) | payer MEDICARE, OTHER, SELFPAY | PROVIDERS: PCP Nurse Practitioner; Visit Provider Internal Medicine | DX: E05.00 Thyrotoxicosis with diffuse goiter without thyrotoxic crisis or storm (principal); R74.01 Elevation of levels of liver transaminase levels; I11.0 Hypertensive heart disease with heart failure; I43 Cardiomyopathy in diseases classified elsewhere; M81.0 Age-related osteoporosis without current pathological fracture | CPT/HCPCS: 84439; 84443; 84480 ==

== ENCOUNTER → 2021-08-13 14:37 | Outpatient (BNVA) | payer MEDICARE, OTHER, SELFPAY | PROVIDERS: PCP Nurse Practitioner; Visit Provider Internal Medicine Cardiovascular Disease | DX: I10 Essential (primary) hypertension (principal); I35.0 Nonrheumatic aortic (valve) stenosis; I50.30 Unspecified diastolic (congestive) heart failure; R06.02 Shortness of breath; I50.33 Acute on chronic diastolic (congestive) heart failure; R06.00 Dyspnea, unspecified | CPT/HCPCS: 80048; 83880 ==

== ENCOUNTER → 2021-08-26 09:13 | Outpatient (BNVA) | payer MEDICARE, OTHER, SELFPAY | PROVIDERS: PCP Nurse Practitioner; Visit Provider Nurse Practitioner | DX: E05.90 Thyrotoxicosis, unspecified without thyrotoxic crisis or storm (principal); I10 Essential (primary) hypertension; I25.10 Atherosclerotic heart disease of native coronary artery without angina pectoris; I50.32 Chronic diastolic (congestive) heart failure; Z23 Encounter for immunization; E05.00 Thyrotoxicosis with diffuse goiter without thyrotoxic crisis or storm | CPT/HCPCS: 80061; 80076; 84439; 84443; 84481 ==

== ENCOUNTER 2021-09-16 09:56 | Outpatient (CLI) | payer MEDICARE, OTHER, SELFPAY ==
--- NOTE | 2021-09-16 10:15 | USCV_ITS ---
Bijal Alegria Age: 71 Gender: F : 1950 Exam Date: 09/16/2021 10:44 Ordering Phys: Juan Savage MD ([email or web address]) Technologist: Lissa Lizama [place] [facility] [place]: DYSPNEA BP: 140 / 70 HR: 55 Rhythm: Sinus Technical Quality: Adequate MEASUREMENTS (Male / Female) Normal Values 2D ECHO LV Diastolic Diameter PLAX 5.2 cm 4.2 - 5.9 / 3.9 - 5.3 cm LV Systolic Diameter PLAX 3.5 cm IVS Diastolic Thickness 1.4 cm 0.6 - 1.0 / 0.6 - 0.9 cm IVS Systolic Thickness 2.0 cm LVPW Diastolic Thickness 1.5 cm 0.6 - 1.0 / 0.6 - 0.9 cm LVPW Systolic Thickness 2.0 cm LVOT Diameter 2.0 cm LV Ejection Fraction 2D Teich 59.1 % LV Ejection Fraction MOD 2C 49.8 % LV Ejection Fraction 2C AL 47.7 % LA Diameter 3.8 cm LA Width 3.7 cm LA Height 4.4 cm RA Width 2.7 cm RA Height 3.9 cm Aorta at Sinotubular Diameter 2.2 cm M-MODE Aortic Annulus Diameter 2.3 cm LA Ao Ratio MM 1.6 MV E Point Septal Separation 0.8 cm DOPPLER AV Peak Velocity 377.7 cm/s LVOT Peak Velocity 63.0 cm/s AV Area Cont Eq vti 0.6 cm squared AV Area Cont Eq pk 0.5 cm squared MV Peak Velocity 113.0 cm/s MV Area PHT 1.9 cm squared Mitral E to A Ratio 1.3 MV E' Velocity 57.5 cm/s Mitral E to MV E' Ratio 14.4 Mitral E to LV E' Lateral Ratio 15.6 Mitral E to LV E' Septal Ratio 13.5 TR Peak Velocity 214.1 cm/s TR Peak Gradient 18.3 mmHg TR Mean Velocity 172.0 cm/s TR Mean Gradient 12.5 mmHg TR Velocity Time Integral 70.2 cm TV Peak E Velocity 37.0 cm/s Right Atrial Pressure 3.0 mmHg Pulmonary Artery Systolic Pressu 21.3 mmHg PV Peak Velocity 206.0 cm/s RV Acceleration Time 0.1 s RV Ejection Time 0.3 s RV AcT/ET 0.4 FINDINGS Left Ventricle Normal left ventricular size and systolic function, EF 50-55 %. Moderate left ventricular hypertrophy. Grade II/IV diastolic dysfunction, moderately elevated filling pressures. Right Ventricle The right ventricle is normal in size and function. Right Atrium The right atrium is normal in size. Left Atrium Moderately increased left atrial size. Mitral Valve Thickened mitral valve. Possibly severe mitral valve regurgitation with regurgitant jet, directed posterolaterally. Moderate mitral annular calcification. Thickening and calcification of the leaflets Aortic Valve Thickened aortic valve. Severe aortic valve stenosis, mean gradient 30.9 mmHg, JADE 0.63 cm squared. Mild aortic valve regurgitation. Peak velocity of 3.9 m/s with a peak gradient of 61 and a mean gradient of 32 mm of Hg. the valve index of 0.45. Tricuspid Valve Mild tricuspid valve regurgitation. Pulmonic Valve Thickened pulmonic valve. Mild pulmonary valve regurgitation. Pericardium Normal pericardium without effusion. Aorta Normal ascending aorta dimension. CONCLUSIONS Normal left ventricular size and systolic function, EF 50-55 %. Moderate left ventricular hypertrophy. Grade II/IV diastolic dysfunction, moderately elevated filling pressures. Thickened mitral valve with moderate mitral annular calcification Moderately increased left atrial size. Possibly severe mitral valve regurgitation with regurgitant jet, directed posterolaterally. Moderate mitral annular calcification. Severe aortic valve stenosis, mean gradient 30.9 mmHg, JADE 0.63 cm squared. Mild aortic valve regurgitation. (Peak velocity of 3.9 m/s with a peak gradient of 61 and a mean gradient of 32 mm of Hg. the valve index of 0.45.). Comparison with the previous study is difficult because of the difference in the technical quality. Appears to have some worsening of the aortic stenosis and mitral regurgitation. LV ejection fraction has improved. Dr Juan Savage MD [facility] (Electronically Signed) Final Date: 16 September 2021 21:58 S
== END 2021-09-16 09:57 | disposition home or self-care (01) ==
PROVIDERS: PCP Nurse Practitioner; Visit Provider Internal Medicine Cardiovascular Disease
DX: I08.0 Rheumatic disorders of both mitral and aortic valves (principal); I50.30 Unspecified diastolic (congestive) heart failure; R06.00 Dyspnea, unspecified
CPT/HCPCS: 93306

== ENCOUNTER 2021-10-06 10:45 | Outpatient (CLI) | payer MEDICARE, OTHER, SELFPAY ==
[2021-10-06 12:26] LABS: Thyroid Stimulating Hormone 0.19 uIU/mL (0.27-4.20)
[2021-10-07 14:43] LABS: T3 Total 127 ng/dL (76-181)
== END 2021-10-06 10:46 | disposition home or self-care (01) ==
PROVIDERS: PCP Nurse Practitioner; Visit Provider Internal Medicine
DX: E05.90 Thyrotoxicosis, unspecified without thyrotoxic crisis or storm (principal); E78.5 Hyperlipidemia, unspecified; R79.89 Other specified abnormal findings of blood chemistry
CPT/HCPCS: 36415; 84439; 84443; 84480

== ENCOUNTER → 2021-10-20 10:53 | Outpatient (BNVA) | payer MEDICARE, OTHER, SELFPAY | PROVIDERS: PCP Nurse Practitioner; Visit Provider Internal Medicine | DX: E05.90 Thyrotoxicosis, unspecified without thyrotoxic crisis or storm (principal); M81.0 Age-related osteoporosis without current pathological fracture; F17.200 Nicotine dependence, unspecified, uncomplicated | CPT/HCPCS: 99214 ==

== ENCOUNTER 2022-01-13 12:43 | Outpatient (CLI) | payer MEDICARE, OTHER, SELFPAY ==
[2022-01-13 13:38] LABS: Basophils # 0.1 10^3/uL (0.0-0.1); Basophils % 1.2 %; Eosinophils # 0.2 10^3/uL (0.0-0.8); Eosinophils % 1.2 %; Hematocrit 39.3 % (37.0-47.0); Hemoglobin 12.3 g/dL (11.5-15.3); Lymphocytes # 2.6 10^3/uL (0.8-4.8); Lymphocytes % 21.9 %; Mean Corpuscular HGB Conc 31.3 g/dL (30.0-36.0); Mean Corpuscular Hemoglobin 31.7 pg (28.0-34.0); Mean Corpuscular Volume 101.3 fl (81-99); Mean Platelet Volume 9.7 fL (7.4-10.4); Monocytes # 1.4 10^3/uL (0.2-0.9); Monocytes % 11.3 %; Neutrophils # 7.52 10^3/uL (1.8-7.7); Neutrophils % 62.4 %; Nucleated Red Blood Cells % 0 %; Platelet Count 435 10^3/cmm (130-400); Red Blood Count 3.88 10^6/uL (4.1-5.3); Red Cell Distribution Width 13.2 % (12.1-15.1); White Blood Count 12.1 10^3/uL (4.0-10.0)
[2022-01-13 14:12] LABS: Alanine Aminotransferase 27 U/L (0-33); Albumin Level 3.9 g/dL (3.5-5.2); Alkaline Phosphatase 99 IU/L (35-105); Anion Gap 17.6 (5-19); Aspartate Amino Transferase 24 U/L (0-32); Blood Urea Nitrogen 20 mg/dL (8-23); Calcium 8.9 mg/dL (8.5-10.5); Carbon Dioxide 22 mmol/L (22-29); Chloride 98 mmol/L (98-107); Globulin 3.9 g/dL (1.3-4.6); Glomerular Filtration Rate 99.1 mL/min (90-130); Glucose 112 mg/dL (65-115); NT Pro B Type Natriuretic Pept 1521 pg/mL (0-125); Osmolality Calculated 279 mOsm/kg (285-295); Potassium 4.6 mmol/L (3.5-5.1); Sodium 133 mmol/L (136-145); Total Bilirubin 0.2 mg/dL (0.15-1.2); Total Protein 7.8 g/dL (6.6-8.7)
== END 2022-01-13 12:44 | disposition home or self-care (01) ==
LOC: LAB 13:03
PROVIDERS: PCP Nurse Practitioner; Visit Provider Nurse Practitioner Family
DX: I35.0 Nonrheumatic aortic (valve) stenosis (principal)
CPT/HCPCS: 80053; 83880; 85025

== ENCOUNTER → 2022-02-23 10:01 | Outpatient (BNVA) | payer MEDICARE, OTHER, SELFPAY | PROVIDERS: PCP Nurse Practitioner; Visit Provider Nurse Practitioner | DX: I10 Essential (primary) hypertension (principal); E05.00 Thyrotoxicosis with diffuse goiter without thyrotoxic crisis or storm | CPT/HCPCS: 80053; 84439; 84443; 84480 ==

== ENCOUNTER → 2022-07-28 10:05 | Outpatient (BNVA) | payer MEDICARE, OTHER, SELFPAY | PROVIDERS: PCP Nurse Practitioner; Visit Provider Internal Medicine Cardiovascular Disease | DX: I11.0 Hypertensive heart disease with heart failure (principal); I50.32 Chronic diastolic (congestive) heart failure; I25.10 Atherosclerotic heart disease of native coronary artery without angina pectoris; Z95.2 Presence of prosthetic heart valve; I34.0 Nonrheumatic mitral (valve) insufficiency; I27.20 Pulmonary hypertension, unspecified; F17.210 Nicotine dependence, cigarettes, uncomplicated | CPT/HCPCS: 99214 ==

== ENCOUNTER → 2022-08-10 11:12 | Outpatient (BNVA) | payer MEDICARE, OTHER, SELFPAY | PROVIDERS: PCP Nurse Practitioner; Visit Provider Nurse Practitioner | DX: I10 Essential (primary) hypertension (principal); I50.32 Chronic diastolic (congestive) heart failure | CPT/HCPCS: 80053; 80061; 84443; 85025 ==

== ENCOUNTER 2022-09-18 13:41 | Outpatient (CLI) | payer MEDICARE, OTHER, SELFPAY ==
--- NOTE | 2022-09-18 15:15 | USCV_ITS ---
Airam Bijal Age: 72 Gender: F : 1950 Exam Date: 09/18/2022 14:50 Ordering Phys: Juan Savage MD ([email or web address]) Technologist: Dayan Schaefer Exam Location: [facility] [place] Indication: MR, AVR BP: 127 / 80 HR: 65 Rhythm: Sinus Technical Quality: Good MEASUREMENTS (Male / Female) Normal Values 2D ECHO LV Diastolic Diameter PLAX 4.4 cm 4.2 - 5.9 / 3.9 - 5.3 cm LV Systolic Diameter PLAX 3.1 cm IVS Diastolic Thickness 1.4 cm 0.6 - 1.0 / 0.6 - 0.9 cm IVS Systolic Thickness 1.6 cm LVPW Diastolic Thickness 0.9 cm 0.6 - 1.0 / 0.6 - 0.9 cm LVPW Systolic Thickness 1.6 cm LVOT Diameter 2.0 cm LV Ejection Fraction 2D Teich 55.9 % LV Ejection Fraction MOD 2C 54.3 % LV Ejection Fraction 2C AL 54.4 % LA Diameter 3.3 cm LA Width 3.8 cm LA Height 4.9 cm RA Width 3.3 cm RA Height 3.8 cm Aorta at Sinotubular Diameter 2.5 cm IVC Diameter 1.6 cm M-MODE MV E Point Septal Separation 0.6 cm DOPPLER AV Peak Velocity 170.0 cm/s LVOT Peak Velocity 66.0 cm/s AV Area Cont Eq vti 1.4 cm squared AV Area Cont Eq pk 1.2 cm squared MV Peak Velocity 204.0 cm/s MV Area PHT 3.4 cm squared Mitral E to A Ratio 1.9 MV E' Velocity 74.0 cm/s Mitral E to MV E' Ratio 26.4 Mitral E to LV E' Lateral Ratio 23.3 Mitral E to LV E' Septal Ratio 30.9 TR Peak Velocity 173.0 cm/s TR Peak Gradient 12.0 mmHg Right Atrial Pressure 3.0 mmHg Pulmonary Artery Systolic Pressu 15.0 mmHg PV Peak Velocity 70.0 cm/s RV Acceleration Time 0.1 s RV Ejection Time 0.3 s RV AcT/ET 0.3 FINDINGS Left Ventricle Normal left ventricular size and systolic function, EF 55 %. Mild left ventricular hypertrophy. Grade III/IV diastolic dysfunction (restrictive filling pattern), severely elevated filling pressures. Right Ventricle The right ventricle is normal in size and function. Right Atrium The right atrium is normal in size. Left Atrium Mildly increased left atrial size. Mitral Valve Thickened mitral valve. Moderate mitral annular calcification. Moderate-severe mitral valve regurgitation. Aortic Valve Aortic valve morphology could not be related to relative. The peak velocity across the aortic valve was 1.7 m/s. The valve area calculated to be 1.4 cm squared Tricuspid Valve No gross abnormalities noted Pulmonic Valve Trace pulmonary valve regurgitation. Pericardium Normal pericardium without effusion. Aorta Normal ascending aorta dimension. IVC The inferior vena cava appears normal. CONCLUSIONS Normal left ventricular size and systolic function, EF 55 %. Mild left ventricular hypertrophy. Grade III/IV diastolic dysfunction (restrictive filling pattern), severely elevated filling pressures. Thickened mitral valve. Moderate mitral annular calcification. Moderate-severe mitral valve regurgitation. Aortic valve morphology could not be related to relative. The peak velocity across the aortic valve was 1.7 m/s. The valve area calculated to be 1.4 cm squared. Mildly increased left atrial size. Trace pulmonary valve regurgitation. There is no pericardial effusion. Compared to the study from 09/16/2021, the aortic relative appears to have replaced Dr Juan Savage MD [facility] (Electronically Signed) Final Date: 18 September 2022 16:04 S
== END 2022-09-18 13:42 | disposition home or self-care (01) ==
LOC: RAD 13:42
PROVIDERS: PCP Nurse Practitioner; Visit Provider Internal Medicine Cardiovascular Disease
DX: I34.0 Nonrheumatic mitral (valve) insufficiency (principal); R06.09 Other forms of dyspnea
CPT/HCPCS: 93306

== ENCOUNTER → 2022-09-23 14:57 | Outpatient (BNVA) | payer MEDICARE, OTHER, SELFPAY | PROVIDERS: PCP Nurse Practitioner; Visit Provider Internal Medicine Cardiovascular Disease | DX: I34.0 Nonrheumatic mitral (valve) insufficiency (principal); Z95.2 Presence of prosthetic heart valve; I11.0 Hypertensive heart disease with heart failure; I50.9 Heart failure, unspecified; F17.210 Nicotine dependence, cigarettes, uncomplicated; I25.10 Atherosclerotic heart disease of native coronary artery without angina pectoris; I25.2 Old myocardial infarction | CPT/HCPCS: 99214 ==

== ENCOUNTER 2022-10-16 10:08 | Day surgery (SDC) | payer MEDICARE, OTHER, SELFPAY ==
[2022-10-14 14:06] VITALS: BMI 24.2
--- NOTE | 2022-10-16 10:45 | USCV_ITS ---
Bijal Alegria Age: 72 Gender: F : 1950 Exam Date: 10/16/2022 12:24 Ordering Phys: Juan Savage MD ([email or web address]) Technologist: TORIN Exam Location: [facility] [place] Indication: MITRAL REGURG AND AORTIC VALVE REPLACMENT BP: 197 / 97 HR: Rhythm: Sinus Technical Quality: Adequate MEASUREMENTS (Male / Female) Normal Values Medications IV propofol administered with anesthesia service Complications None Proc. Components The patient was brought to the POP examination room in a fasting state after obtaining an informed consent. The POP probe was passed into the posterior pharynx , mid-esophagus, distal esophagus, and gastric fundus. POP was performed at multiple levels. The patient tolerated the procedure well and there were no complications. FINDINGS Left Ventricle Normal LV size with normal ejection fraction Right Ventricle Appears to be mildly dilated with a normal ejection fraction. Right Atrium Moderately dilated Left Atrium The interatrial septum was found to be intact with no evidence of any ASD or PFO by color-flow Doppler examination or by saline contrast injection LA Appendage The left atrial appendage appears to be very small,? Occluded. The pulmonary venou Doppler flow pattern is within normal limits. No evidence of any flow reversal IA Septum Appears to be intact with no evidence of ASD or PFO. Mitral Valve The mitral valve appears to be thickened with very diminished mobility of the posterior leaflet. The PISA radius was 0.6 cm. Echodensities in the mitral annulus,/annular ring. Eccentric moderate mitral regurgitation Aortic Valve The bioprosthetic valve in the aortic position appears to be well-seated with a normal leaflet motion Tricuspid Valve Mild tricuspid valve regurgitation. Pulmonic Valve No gross abnormalities noted Pericardium No pericardial effusion. Aorta Normal aortic root with no unstable lesions CONCLUSIONS 1. Moderate eccentric mitral regurgitation with a PISA radius of 0.6. 2. Moderate biatrial enlargement 3. Thickened mitral leaflets with diminished mobility of the posterior leaflet. 4. Bioprosthetic valve the aortic position appears to be well- seated with no significant aortic dilatation. 5. Mild tricuspid regurgitation 6. Left atrial appendage small,? Occluded 7. Intact interatrial septum with no evidence of ASD or PFO, based on color flow Doppler examination/saline contrast injection Dr Juan Savage MD [facility] (Electronically Signed) Final Date: 19 October 2022 20:01 S
[2022-10-16 10:50] VITALS: BP 191/102; PULSE 77; RESP 16; TEMP 36.3; O2SAT 98
--- NOTE | 2022-10-16 10:57 | ANES.PREANE2 ---
Pre-Anesthetic Assessment Height/Weight: Height 1.5 m Weight 54.431 kg Temp Pulse Resp BP Pulse Ox O2 Del Method 97.4 F L 77 16 191/102 98 10/16/22 10:50 10/16/22 10:50 10/16/22 10:50 10/16/22 10:50 10/16/22 10:50 10/16/22 10:50 Preop Diagnosis: Cardiomyopathy, congestive heart failure, severe Operation Date: 10/16/22 12:00 Proposed Procedures p POP 27753,I34.0,Z95.2(Not Applicable) - Juan Savage MD Familial anesthetic complications: none Was Beta Enedina taken within 24 hours: Yes Last intake: Intake Last Liquid Date 10/15/22 Last Liquid Time 22:00 Last Solid Date 10/15/22 Last Solid Time 18:00 Social Alcohol (3-4 drinks per week) and Tobacco 1/4 ppd pack(s) per day Airway Submandibular: within normal limits Cervical ROM: within normal limits Mallampati: Class I Dentition: loose (very poor dentition) Pulmonary Chronic Obstructive Pulmonary Disease CV/HEM Hypertension and Murmur Aortic valve replacement 01/20 see recent echo. Pulmonary HTN mod-severe Mitral Valve regurg. None reported Hepatic None reported GI None reported Metabolic Diabetes Mellitus (prediabetic per patient.), Hyperlipidemia and Thyroid Disease (graves disease) [facility] [place]/sk None reported Neuropsych Anxiety and Depression hypertensive preoperatively patient states she feels fine beta enedina ordered. Anesthetic Plan ASA status: 3 Anesthesia: MAC Medications/Allergies Home Medications Medication Instructions Recorded Confirmed Last Taken Type nitroglycerin 0.4 mg sublingual 0.4 mg sublingual Q5M PRN Chest 09/24/20 10/14/22 Unknown Rx tablet Pain 30 days #30 tabs aspirin 81 mg tablet,delayed 81 mg PO DAILY 02/13/21 10/14/22 10/16/22 History release atorvastatin 40 mg tablet See Rx Instructions .Route 10/20/21 10/16/22 10/15/22 Rx .COMPLEX #90 tabs carvedilol 6.25 mg tablet 6.25 mg PO BID #180 tabs 08/10/22 10/14/22 10/16/22 Rx Allergies Allergy/AdvReac Type Severity Reaction Status Date / Time bupropion [From Wellbutrin] Allergy ADR-Nausea Verified 10/14/22 14:03 PFSH Anesthesia Medical History Aortic valve stenosis Atherosclerosis of coronary artery of [place] heart without angina pectoris Benign essential hypertension Benign essential hypertension with target blood pressure below 140/90 Cardiomyopathy due to hypertension, with heart failure Dyslipidemia History of smoking 30 or more pack years Non-ST elevation myocardial infarction (NSTEMI) Osteoporosis, post-menopausal Pulmonary hypertension Severe aortic valve stenosis Situational anxiety Troponin level elevated Surgical History History of laparoscopy To look at tubes in [place] History of PTCA Hx of aortic valve replacement [facility] December 2021 Family History Mother Hypertension Father Hypertension Brother CAD (coronary artery disease) Cancer Denies family history of Diabetes Clotting disorder Dementia Chronic kidney disease (CKD) Suicide Anesthesia complication Bleeding disorder Lung disease Stroke Social History Smoking and tobacco status: current some day smoker cigarettes Quit status (tobacco): has tried quititng Second hand smoke exposure: No Smoking risk assessment/counseling performed?: No Alcohol intake: current Alcohol type: beer Desire information about alcohol rehabilitation?: No Counseling given: No Desire information about substance/drug rehabilitation?: No Counseling given: No Adopted: No Caregiver/support person: No Lives independently: Yes Household members: spouse Housing: House Marital status: service: No Current occupational status: retired History of recent travel: Yes ([place]) Out of state: No Current gender identity: Female Data Anesthesia Cardiac Studies: Echocardiogram 09/18/22 Echocardiogram Ultrasound 02/13/21 Sestamibi Stress Test (Cardiology) 02/14/21
[2022-10-16] MEDS: sodium chloride 0.9% 1,000 ML 30 ML IV (10:59)
--- NOTE | 2022-10-16 11:24 | W.PM.OPSUD ---
Surgery/Procedure H&P Update DATE OF PROCEDURE: October 16, 2022 DATE H&P PERFORMED: 09/23/22 H&P UPDATE INFORMATION: I have reviewed H&P completed within last 30 days, I have examined patient prior to procedure and No changes to prior documentation PREOP DIAGNOSIS: Mitral regurgitation, moderately severe PRIMARY INDICATION FOR PROCEDURE: History of aortic valve replacement and mitral valve repair. Currently has moderately severe mitral regurgitation PLANNED PROCEDURE: Operation Date: 10/16/22 12:00 Proposed Procedures p POP [id number],I34.0,Z95.2(Not Applicable) - Juan Savage MD
[2022-10-16 12:57] VITALS: BP 92/57; PULSE 59; RESP 14; TEMP 36.1; O2SAT 95
--- NOTE | 2022-10-16 13:02 | ANE.PACU2 ---
Inpatient post-anesthesia follow up: Airway intact: Yes Vital signs: Temperature 97.0 F Pulse Rate 59 Respiratory Rate 14 Blood Pressure 92/57 Pulse Oximetry 95 Oxygen Delivery Me thod Nasal Cannula Oxygen Flow Rate 5 Fraction of Inspir ed Oxygen Hydration adequate: Yes Nausea and vomiting: No Pain level: 1 Mental status: Baseline
[2022-10-16 13:08] VITALS: BP 130/73; PULSE 63; RESP 18; O2SAT 95
== END 2022-10-16 13:15 | disposition home or self-care (01) ==
PROVIDERS: PCP Nurse Practitioner; Visit Provider Internal Medicine Cardiovascular Disease
PROC: (CPT 93312; principal; 2022-10-16 12:00)
DX: I34.0 Nonrheumatic mitral (valve) insufficiency (principal); Z95.2 Presence of prosthetic heart valve; F17.210 Nicotine dependence, cigarettes, uncomplicated; J44.9 Chronic obstructive pulmonary disease, unspecified; I10 Essential (primary) hypertension; E11.9 Type 2 diabetes mellitus without complications; F41.9 Anxiety disorder, unspecified; F32.A Depression, unspecified; Z79.82 Long term (current) use of aspirin; E78.5 Hyperlipidemia, unspecified; I25.2 Old myocardial infarction; M81.0 Age-related osteoporosis without current pathological fracture
CPT/HCPCS: 93312; 93320; 93325; J0360; J2704; J7030

== ENCOUNTER → 2022-12-31 14:24 | Outpatient (BNVA) | payer MEDICARE, OTHER, SELFPAY | PROVIDERS: PCP Nurse Practitioner; Visit Provider Nurse Practitioner | DX: I10 Essential (primary) hypertension (principal); I50.32 Chronic diastolic (congestive) heart failure; E78.5 Hyperlipidemia, unspecified; E55.9 Vitamin D deficiency, unspecified | CPT/HCPCS: 80053; 80061; 82306; 82607; 84443; 85025 ==

== ENCOUNTER → 2023-04-07 15:23 | Outpatient (BNVA) | payer MEDICARE, OTHER, SELFPAY | PROVIDERS: PCP Nurse Practitioner; Visit Provider Internal Medicine Cardiovascular Disease | DX: E78.5 Hyperlipidemia, unspecified (principal); N18.9 Chronic kidney disease, unspecified; Z79.01 Long term (current) use of anticoagulants; R06.02 Shortness of breath; I34.0 Nonrheumatic mitral (valve) insufficiency; I25.10 Atherosclerotic heart disease of native coronary artery without angina pectoris; Z95.1 Presence of aortocoronary bypass graft; Z95.2 Presence of prosthetic heart valve; I13.0 Hypertensive heart and chronic kidney disease with heart failure and stage 1 through stage 4 chronic kidney disease, or unspecified chronic kidney disease; I50.32 Chronic diastolic (congestive) heart failure; I27.20 Pulmonary hypertension, unspecified; R53.83 Other fatigue; G47.30 Sleep apnea, unspecified; F17.210 Nicotine dependence, cigarettes, uncomplicated | CPT/HCPCS: 36415; 80048; 84443; 85025; 99215 ==

== ENCOUNTER → 2023-05-20 14:21 | Outpatient (BNVA) | payer MEDICARE, OTHER, SELFPAY | PROVIDERS: PCP Nurse Practitioner; Visit Provider Nurse Practitioner | DX: I11.0 Hypertensive heart disease with heart failure (principal); E55.9 Vitamin D deficiency, unspecified; I50.32 Chronic diastolic (congestive) heart failure; E78.5 Hyperlipidemia, unspecified; Z01.89 Encounter for other specified special examinations | CPT/HCPCS: 80053; 80061; 81000; 81003; 82306; 82607; 84443; 85025; 87077; 87086; 87184 ==

== ENCOUNTER 2023-05-27 09:31 | Outpatient (CLI) | payer MEDICARE, OTHER, SELFPAY ==
[2023-05-27] MEDS: iohexol 350 mg/mL 500 mL Btl (per mL) PO (10:09)
--- NOTE | 2023-05-27 11:00 | CT_ITS ---
WS: [id number] CT CHEST, ABDOMEN AND PELVIS NONCONTRAST. HISTORY: J44.9 - Chronic obstructive pulmonary disease, unspecified TECHNIQUE: Contiguous 5 mm axial imaging performed through the chest, abdomen and pelvis without IV c ontrast, oral contrast has been provided. Coronal and sagittal reformats chest. Coronal and sagittal reformats through the abdomen and pelvis. All CT scans at [facility] use at least one of thes e dose optimization techniques: automated exposure control; mA and/or kV adjustment per patient size (includes targeted exams where dose is matched to clinical indication); or iterative reconstruction. CONTRAST: None DLP: 299.56 mGy.cm COMPARISON: 02/13/2021, 09/13/[address]: Prior median sternotomy and aortic valve replacement. Hyperinflated lungs with emphysema. M inimal areas of hazy attenuation and groundglass attenuation. No dense areas of consolidation or mass . Heart is mildly enlarged. Mild atherosclerosis aorta. No adenopathy identified on this unenhanced e xam. No chest wall mass. Small hiatal hernia. Abdomen CT: Mild hepatic steatosis. Normal size liver and spleen. Normal gallbladder. Normal unenhanc ed pancreas and adrenal glands. No renal obstruction. No perinephric stranding. Moderate atherosclero sis aorta with no aneurysm. Normally distended stomach. No small bowel obstruction or wall thickening. Diffuse mild constipation with overlapping tortuous loops of colon. Normal appendix. Mild sigmoid diverticulosis without acute diverticulitis. Pelvic CT: No free fluid or adenopathy. Normally distended urinary bladder. Small atrophic uterus. No destructive bone lesions. T7 bone island. CT/[place] [id number] IMPRESSION: 1. No acute abdominal or pelvic abnormality identified. 2. Tortuous overlapping loops of colon with constipation. No obstructive proce ss. 3. Mild sigmoid diverticulosis without acute diverticulitis. 4. No free fluid or adenopathy. 5. There are a few scattered areas of mild hazy attenuation throughout the cristi gs. These may be due to small vessel disease or mild pneumonitis. Chronic emphy sema. No dense consolidation or mass.
== END 2023-05-27 09:32 | disposition home or self-care (01) ==
LOC: RAD 09:35
PROVIDERS: PCP Nurse Practitioner; Visit Provider Nurse Practitioner
DX: K63.89 Other specified diseases of intestine (principal); K59.00 Constipation, unspecified; J43.8 Other emphysema
CPT/HCPCS: 71250; 74176; Q9967

== ENCOUNTER → 2023-12-21 11:08 | Outpatient (BNVA) | payer MEDICARE, OTHER, SELFPAY | PROVIDERS: PCP Nurse Practitioner; Visit Provider Nurse Practitioner | DX: E78.5 Hyperlipidemia, unspecified (principal); I10 Essential (primary) hypertension; I50.32 Chronic diastolic (congestive) heart failure; F41.8 Other specified anxiety disorders; E55.9 Vitamin D deficiency, unspecified; J44.9 Chronic obstructive pulmonary disease, unspecified; I25.10 Atherosclerotic heart disease of native coronary artery without angina pectoris; Z12.31 Encounter for screening mammogram for malignant neoplasm of breast | CPT/HCPCS: 80053; 80061; 82306; 82607; 84443; 85025 ==

== ENCOUNTER 2023-12-29 10:42 | Outpatient (CLI) | payer MEDICARE, OTHER, SELFPAY ==
--- NOTE | 2023-12-29 10:44 | MM_ITS ---
WS: [id number] SCREENING DIGITAL BREAST TOMOSYNTHESIS MAMMOGRAM WITH CAD HISTORY: Z12.31 - Encounter for screening mammogram for malignant ... COMPARISON: 12/07/2017 Bilateral CC and MLO with tomosynthesis and synthetic mammography submitted. Computer aided detection analyzed. Breast composition: There are scattered areas of fibroglandular density. New well-circumscribed high density mass in the upper outer quadrant of the LEFT breast near 2:00 measures 6 x 8 mm. There are ad ditional benign calcifications. IMPRESSION: MM/[place] [id number] BI-RADS: 0-Incomplete: Need additional imaging evaluation FOLLOW UP: Need Additional Imaging Recommendation: LEFT breast ultrasound, limited, upper outer quadrant.
== END 2023-12-29 10:43 | disposition home or self-care (01) ==
LOC: RAD 10:43
PROVIDERS: PCP Nurse Practitioner; Visit Provider Nurse Practitioner
DX: Z12.31 Encounter for screening mammogram for malignant neoplasm of breast (principal); R92.323 Mammographic fibroglandular density, bilateral breasts; N63.21 Unspecified lump in the left breast, upper outer quadrant
CPT/HCPCS: 77063; 77067

== ENCOUNTER 2024-01-24 08:27 | Outpatient (CLI) | payer MEDICARE, OTHER, SELFPAY ==
--- NOTE | 2024-01-24 09:00 | US_ITS ---
WS: [id number] ULTRASOUND LEFT BREAST HISTORY: Follow-up screening mammogram 12/29/2023. COMPARISON: 12/29/2023 TECHNIQUE: 2-D and Doppler. Hypoechoic mass LEFT breast 2:00, 6 cm from the nipple corresponds to the mass seen on the recent lisa mogram. This is a solid mass measuring 8 x 5 x 7 mm. No increased vascularity. This is not a normal l ymph node and is not a simple cyst. IMPRESSION: US/US breast LT limited* [id number] BI-RADS: 4-Suspicious Finding-Biopsy Should Be Considered FOLLOW-UP: Biopsy Recommended Ultrasound-guided biopsy recommended solid mass LEFT breast at 2:00. Notified JAYMIE Vora at 01/24/2024 9:40 AM.
== END 2024-01-24 08:28 | disposition home or self-care (01) ==
LOC: RAD 08:27
PROVIDERS: PCP Nurse Practitioner; Visit Provider Nurse Practitioner
DX: N63.21 Unspecified lump in the left breast, upper outer quadrant (principal)
CPT/HCPCS: 76642

== ENCOUNTER → 2024-01-25 08:34 | Outpatient (BNVA) | payer MEDICARE, OTHER, SELFPAY | PROVIDERS: PCP Nurse Practitioner; Visit Provider Nurse Practitioner Family | DX: I10 Essential (primary) hypertension (principal); I25.10 Atherosclerotic heart disease of native coronary artery without angina pectoris; F17.210 Nicotine dependence, cigarettes, uncomplicated | CPT/HCPCS: 99214 ==

== ENCOUNTER 2024-02-02 12:36 | Outpatient (CLI) | payer MEDICARE, OTHER, SELFPAY ==
--- NOTE | 2024-02-02 13:15 | US_ITS ---
WS: [id number] ULTRASOUND-GUIDED LEFT BREAST BIOPSY HISTORY: Suspicious LEFT breast mass for which biopsy is recommended. COMPARISON: 01/24/2024 and 12/29/2023 Procedure, risks and complications are explained to the patient. Medications are reviewed. Consent is obtained. The mass in the LEFT breast is localized with ultrasound. Mass localizes to 2:00, 6 cm from the nippl e. Skin is cleansed with ChloraPrep and anesthetized with 1% buffered lidocaine. Small dermatome is m neptali. Under sterile conditions mass is biopsied with a 14-gauge Achieve needle. Multiple core biopsies are performed. Material placed in formalin and sent to pathology for review. No complications encoun tered. Breast tissue marker (Bard ultrasound enhanced ribbon): Single. Patient left the radiology suite with no complications. [place] is [place] [facility] [place] [facility] with any concerns. IMPRESSION: 1. Uncomplicated core needle biopsy LEFT breast mass at 2:00. US/[place] [id number] PATHOLOGY: Invasive ductal carcinoma, nuclear grade 1-2. Microcalcifications id entified. Please see the pathology report for further and entire details. Progn ostic profile is pending. RECOMMENDATION: Follow-up with breast surgeon and oncology.
[2024-02-08 15:59] LABS: Breast Profile ER,PR,HER2,Ki-6 See Report
== END 2024-02-02 12:37 | disposition home or self-care (01) ==
LOC: RAD 12:37
PROVIDERS: PCP Nurse Practitioner; Visit Provider Nurse Practitioner
DX: C50.412 Malignant neoplasm of upper-outer quadrant of left female breast (principal); R92.0 Mammographic microcalcification found on diagnostic imaging of breast
CPT/HCPCS: 19083; 88305; 88361; 88374; 99214

== ENCOUNTER 2024-02-22 09:49 | Oncology outpatient (recurring) (ONCR) | payer MEDICARE, OTHER, SELFPAY ==
[2024-02-22 11:53] LABS: Basophils # 0.1 10^3/uL (0.0-0.1); Basophils % 0.9 %; Eosinophils # 0.3 10^3/uL (0.0-0.8); Eosinophils % 3.4 %; Hematocrit 43.7 % (36-47); Lymphocytes # 2.6 10^3/uL (0.8-4.8); Lymphocytes % 28.5 %; Mean Corpuscular Hemoglobin 30.8 pg (27-33); Mean Corpuscular Volume 93.4 fl (85-98); Mean Platelet Volume 10.9 fL (7.4-10.4); Monocytes # 0.5 10^3/uL (0.2-0.9); Monocytes % 5.4 %; Neutrophils # 5.65 10^3/uL (1.8-7.7); Neutrophils % 61.6 %; Nucleated Red Blood Cells % 0 %; Platelet Count 270 10^3/cmm (157-399); Red Blood Count 4.68 10^6/uL (3.85-5.65); Red Cell Distribution Width 13.1 % (12.1-15.1); White Blood Count 9.18 10^3/uL (3.29-11.43)
[2024-02-22 12:07] LABS: Alanine Aminotransferase 13 U/L (0-33); Albumin Level 4.1 g/dL (3.5-5.2); Alkaline Phosphatase 98 U/L (35-105); Carbon Dioxide 28 mmol/L (22-29); Creatinine Clr Calc Pharmacy 51.2668; Globulin 3.8 g/dL (1.3-4.6); Glucose 103 mg/dL (65-115); Total Bilirubin 0.4 mg/dL (0.15-1.2); Total Protein 7.9 g/dL (6.6-8.7)
[2024-02-22 12:27] LABS: Blood Urea Nitrogen 13 mg/dL (8-23); Calcium 9.9 mg/dL (8.5-10.5); Chloride 97 mmol/L (98-107); Osmolality Calculated 282 mOsm/kg (285-295); Sodium 136 mmol/L (136-145)
[2024-02-22 12:30] LABS: Anion Gap 14.9 (5-19); Potassium 3.9 mmol/L (3.5-5.1)
[2024-02-22 12:31] LABS: Aspartate Amino Transferase 19 U/L (0-32)
[2024-02-22 12:33] LABS: Hepatitis A Antibody IgM Non-Reactive (Nonreactive); Hepatitis B Core AB, Total Non-Reactive (Nonreactive); Hepatitis B Surface AB 8.8 (11.5-1000); Hepatitis B Surface Antigen Non-Reactive (Nonreactive); Hepatitis C Virus Antibody Non-Reactive (Nonreactive)
== END 2024-02-27 23:59 | disposition home or self-care (01) ==
PROVIDERS: PCP Nurse Practitioner; Visit Provider Internal Medicine
DX: C50.412 Malignant neoplasm of upper-outer quadrant of left female breast (principal); J44.9 Chronic obstructive pulmonary disease, unspecified; I25.10 Atherosclerotic heart disease of native coronary artery without angina pectoris; Z95.2 Presence of prosthetic heart valve; I11.0 Hypertensive heart disease with heart failure; I50.9 Heart failure, unspecified; F17.210 Nicotine dependence, cigarettes, uncomplicated; Z17.0 Estrogen receptor positive status [ER+]; Z11.59 Encounter for screening for other viral diseases
CPT/HCPCS: 36415; 80053; 85025; 86705; 86706; 86709; 86803; 87340; 99205

== ENCOUNTER 2024-02-28 12:27 | Oncology outpatient (recurring) (ONCR) | payer MEDICARE, OTHER, SELFPAY ==
--- NOTE | 2024-02-28 13:40 | N.ONRAD NP_ITS ---
Radiation Oncology New Patient Visit Patient: Bijal Alegria MR#: [id number] : 1950> Age: 73> Sex: Female> Dictated by: Dr. Tara Scott Date of Service: 02/28/2024 Referring Physician(s) : Dr Sánchez Diagnosis: Infiltrative ductal carcinoma ER/ND positive H ER 2 negative grade 1 Radiotherapy to date: Summary > No prior radiation therapy. Chief Complaint / History of Present Illness: Patient is a 73-year-old lady who underwent screening mammography on December 29, 2023. She was noted to have calcifications in the left breast in the upper outer quadrant. On February 02, 2024 she had an ultrasound-guided biopsy. Pathologically this showed an invasive ductal carcinoma which was ER/ND positive H ER 2 negative grade 1-2. Microcalcifications were noted in the lesion. She is at this point considering her treatment options. She will be visiting with Dr. Asher to discuss surgery after my appointment today. Current Medications: amlodipine Take 1 tablet by mouth once daily aspirin 81 mg PO DAILY atorvastatin 40 mg PO .in evening carvedilol 6.25 mg PO BID nitroglycerin 0.4 mg sublingual Q5M PRN 30 days valsartan-hydrochlorothiazide 320-12.5 mg (Diovan HCT) 1 tab PO DAILY venlafaxine ER (Effexor XR) 37.5 mg PO DAILY Allergies: bupropion [From Wellbutrin] Allergy (Verified 02/22/24 10:24) ADR-Nausea Medical History: Intraductal carcinoma of left breast COPD (chronic obstructive pulmonary disease) Non-ST elevation myocardial infarction (NSTEMI) Troponin level elevated Atherosclerosis of coronary artery of [place] heart without angina pectoris Aortic valve stenosis Pulmonary hypertension Cardiomyopathy due to hypertension, with heart failure Severe aortic valve stenosis History of smoking 30 or more pack years Osteoporosis, post-menopausal Situational anxiety Benign essential hypertension Dyslipidemia. Surgical History: Hx of aortic valve replacement [facility] December 2021 History of PTCA History of laparoscopy To look at tubes in [place] Family History: Mother Hypertension Father Hypertension Brother CAD (coronary artery disease) Cancer Denies family history of Diabetes Clotting disorder Dementia Chronic kidney disease (CKD) Suicide Anesthesia complication Bleeding disorder Lung disease Stroke Social History: Smoking and tobacco/nicotine status: current some day tobacco/nicotine user cigarettes Quit status (tobacco/nicotine): has tried quititng Second hand smoke exposure: No Alcohol intake: current Alcohol type: beer Substance/Drug Use: never Adopted: No Caregiver/support person: No Lives independently: Yes Household members: spouse Housing: House Marital status: service: No Current Complaints / Review of Systems: . Vital Signs: Performed on 02/28/2024 12:45 PM BMI - 21.854 kg/m2, Height - 59 in, Weight - 108.2 lbs, Temperature - 97.3 f, Pulse - 88 /min, Respiration - 18 /min, O2 Sat - 99 %, Pain - 0, Fatigue - 0 and BP - 177/ 83 mm(hg)(high/). Physical Exam: General: Patient is in no apparent distress. She is accompanied by her . HEENT: Normocephalic atraumatic. Pupils are equal, sclera clear, extraocular muscles intact Pulmonary: Respiratory rate is regular nonlabored Cardiovascular: Regular rate and rhythm Abdomen: Patient has minimal adipose tissue and no distention Breast exam: The previous biopsy site has completely healed. There is no palpable masses noted. Extremities: Without clubbing cyanosis or edema Skin: Warm and dry without ecchymoses Neurological: Alert and orient x 3. Gait and speech within normal limits Psych: Affect appropriate for current situation Performance Status: 100 Pathology: Invasive ductal carcinoma of the left breast Impression: Invasive ductal carcinoma of the left breast prior to surgery and workup Plan: I reviewed with Mrs. Alegria the findings on her mammogram. We talked about how she had undergone a biopsy. I reviewed with her the pathology from the biopsy. We talked about at this point we cannot even do a stage until she has some form of surgery. I reviewed with her the next choice she needed to make was whether she wanted a mastectomy or breast conserving therapy. She adamantly denied a mastectomy. She would like to proceed with breast conserving therapy. I reviewed with her the simulation process and the daily treatment regiment. We talked about the risks and side effects of the radiation both acute and long-term. She verbalized understanding all of the above. She will let us know when Dr. Asher schedules her for surgery. Will schedule her for simulation 3 to 4 weeks after her surgery so that we can proceed with getting her treatments done before the middle of May when she has a cruise with her family. At this point she felt much better and was no longer stressed. She was anxious to get things scheduled and went off to visit with Dr. Asher. Signed by: 02/28/2024 1:37:59 PM <<Signature on File>> Time spent with patient:40 CPT Code: CPT Code:
== END 2024-03-28 23:59 | disposition home or self-care (01) ==
PROVIDERS: PCP Nurse Practitioner; Visit Provider Internal Medicine
DX: C50.411 Malignant neoplasm of upper-outer quadrant of right female breast (principal); Z17.0 Estrogen receptor positive status [ER+]; Z72.0 Tobacco use
CPT/HCPCS: 99204; 99205

== ENCOUNTER 2024-03-16 07:35 | Day surgery (SDC) | payer MEDICARE, OTHER, SELFPAY ==
[2024-03-16] VITALS (8 sets, daily range): BP systolic 128–165; BP diastolic 60–98; PULSE 73–77; RESP 16–18; TEMP 36.2–36.8; O2SAT 94–98; BMI 21.8
--- NOTE | 2024-03-16 07:53 | W.PM.OPSUD ---
Surgery/Procedure H&P Update DATE OF PROCEDURE: March 16, 2024 DATE H&P PERFORMED: 02/28/24 H&P UPDATE INFORMATION: I have reviewed H&P completed within last 30 days, I have examined patient prior to procedure and No changes to prior documentation PLANNED PROCEDURE: Operation Date: 03/16/24 10:50 Proposed Procedures p Excision of Breast Mass Needle Localizat(Left) - DO yanet Chao Sentinal Lymph Node Biopsy/removal/sentinel node biopsy injection(Left) - Morgan Asher DO
--- NOTE | 2024-03-16 08:06 | US_ITS ---
WS: [id number] ULTRASOUND-GUIDED LEFT BREAST NEEDLE LOCALIZATION HISTORY: L Breast Lumpectomy Prior imaging studies are reviewed. Procedure, risks and complications were explained to the patient. Consent is obtained. Breast mass localizes to 2:00, 6 cm from the nipple. Skin is cleansed with ChloraPrep and anesthetized with 1% buffered lidocaine. Needle and guidewire pl aced to the area of concern with no complications. Ultrasound guidance performed during the needle lo calization. Guidewire is left within the lesion. Guidewire secured and no complications encountered. Patient is being transported to the OR suite. Specimen radiograph is also reviewed. Breast mass is present and also the localization wire. IMPRESSION: 1. Uncomplicated wire localization LEFT breast mass at 2:00. 2. Breast mass is contained within the specimen submitted from the OR. PATHOLOGY RESULTS: Specimen contains invasive ductal carcinoma. Surgical margins were negative. Nasra [place] refer to the pathology report for complete detail. RECOMMENDATIONS: Follow-up with oncology and breast surgeon.
--- NOTE | 2024-03-16 08:29 | ANES.PREANE2 ---
Pre-Anesthetic Assessment Height/Weight: Height 1.5 m Weight 48.988 kg Temp Pulse Resp BP Pulse Ox O2 Del Method 98.3 F 75 17 165/98 98 Room Air 03/16/24 08:08 03/16/24 08:08 03/16/24 08:08 03/16/24 08:09 03/16/24 08:08 03/16/24 08:10 Operation Date: 03/16/24 10:50 Proposed Procedures p Excision of Breast Mass Needle Localizat(Left) - Morgan Asher DO s Sentinal Lymph Node Biopsy/removal/sentinel node biopsy injection(Left) - Morgan Asher DO Was Beta Enedina taken within 24 hours: Yes Last intake: Intake Last Liquid Date 03/15/24 Last Liquid Time 20:00 Last Solid Date 03/15/24 Last Solid Time 20:00 Social Tobacco QUIT 4 DAYS AGO pack(s) per day Exam alert, oriented x 3, clear to auscultation bilaterally and regular rate & rhythm Airway Submandibular: within normal limits Cervical ROM: within normal limits Mallampati: Class I Pulmonary Chronic Obstructive Pulmonary Disease CV/HEM Hypertension S/P AVR bovine replacement Hepatic None reported Anesthetic Plan ASA status: 3 Anesthesia: General Risk of > 500 ml blood loss (7ml/kg in children): No Medications/Allergies Home Medications Medication Instructions Recorded Confirmed Last Taken Type nitroglycerin 0.4 mg sublingual 0.4 mg sublingual Q5M PRN Chest 09/24/20 03/15/24 Unknown Rx tablet Pain 30 days #30 tabs aspirin 81 mg tablet,delayed 81 mg PO DAILY 02/13/21 03/16/24 10/16/22 History release atorvastatin 40 mg tablet 40 mg PO .in evening #90 tabs 12/21/23 03/15/24 03/15/24 Rx carvedilol 6.25 mg tablet 6.25 mg PO BID #180 tabs 12/21/23 03/15/24 03/16/24 Rx valsartan 320 1 tab PO DAILY #90 tabs 12/21/23 03/15/24 03/15/24 Rx mg-hydrochlorothiazide 12.5 mg tablet (Diovan HCT) venlafaxine 37.5 mg 37.5 mg PO DAILY #30 caps 01/20/24 03/15/24 03/15/24 Rx capsule,extended release 24 hr (Effexor XR) varenicline 0.5 mg (11)-1 mg (42) See Rx Instructions PO PER PKG DIR 02/22/24 03/15/24 03/16/24 Rx tablets in a dose pack ([employer] #53 ea Starting Month Box) amlodipine 2.5 mg tablet 2.5 mg PO DAILY 03/15/24 03/15/24 03/16/24 History Allergies Allergy/AdvReac Type Severity Reaction Status Date / Time bupropion [From Wellbutrin] Allergy ADR-Nausea Verified 02/28/24 13:46 [facility] Anesthesia Medical History Intraductal carcinoma of left breast COPD (chronic obstructive pulmonary disease) Non-ST elevation myocardial infarction (NSTEMI) Troponin level elevated Atherosclerosis of coronary artery of [place] heart without angina pectoris Aortic valve stenosis Pulmonary hypertension Cardiomyopathy due to hypertension, with heart failure Severe aortic valve stenosis History of smoking 30 or more pack years Osteoporosis, post-menopausal Situational anxiety Benign essential hypertension Dyslipidemia Surgical History Hx of aortic valve replacement [facility] December 2021 History of PTCA History of laparoscopy To look at tubes in [place] Family History Mother Hypertension Father Hypertension Brother CAD (coronary artery disease) Cancer Denies family history of Diabetes Clotting disorder Dementia Chronic kidney disease (CKD) Suicide Anesthesia complication Bleeding disorder Lung disease Stroke Social History Smoking and tobacco/nicotine status: current some day tobacco/nicotine user cigarettes Quit status (tobacco/nicotine): has tried quititng Second hand smoke exposure: No Alcohol intake: current Alcohol type: beer Substance/Drug Use: never Adopted: No Caregiver/support person: No Lives independently: Yes Household members: spouse Housing: House Marital status: service: No Current occupational status: retired Do you think of yourself as: Straight/Heterosexual Current gender identity: Female Data Anesthesia Cardiac Studies: Echocardiogram 09/18/22 Echocardiogram Ultrasound 02/13/21 Transesophageal Echocardiogram 10/16/22 Sestamibi Stress Test (Cardiology) 02/14/21
--- NOTE | 2024-03-16 09:18 | PC.NURSE ---
Patient was injected in the LEFT breast at the 1:00 position with 0.94 mCi Tc99m Tilmanosept Lymphoseek at 09:05AM for left breast sentinel lymph node biopsy by [facility].
[2024-03-16] MEDS: sodium chloride 0.9% 1,000 ML 30 ML IV (09:32)
[2024-03-16] MEDS: ceFAZolin 2,000 MG in sodium chloride 0.9% (plus) 50 ML 100 MG IV (10:45)
[2024-03-16] MEDS: lidocaine-epi 2% PF 1:200,000 20 mL SDV XX (11:28)
[2024-03-16] MEDS: isosulfan blue 10 mg/mL SDV 5mL SUBCUT (11:28)
--- NOTE | 2024-03-16 13:59 | ANE.PACU2 ---
Inpatient post-anesthesia follow up: Vital signs: Temperature 97.3 F Pulse Rate 73 Respiratory Rate 17 Blood Pressure 159/85 Pulse Oximetry 96 Oxygen Delivery Me thod Room Air Oxygen Flow Rate Fraction of Inspir ed Oxygen Hydration adequate: Yes Nausea and vomiting: No Mental status: Baseline Additional Comments: no apparent anesthetic complications noted
--- NOTE | 2024-03-30 05:18 | P.OP_ITS ---
Operative Report Date of procedure: March 30, 2024 Pre-op diagnosis: Left breast cancer Post-op diagnosis: same Procedure done: Left breast lumpectomy with needle insertion and radiologic correlation and sentinel lymph node biopsy Implants: None Specimens removed/disposition: Left sentinel lymph node Left breast lumpectomy-wire lateral short superior and double anterior Surgeon: Morgan Asher DO Estimated blood loss (mL): 5 Complications: None apparent Brief History: This very pleasant 74-year-old female presented my office with left breast cancer. Left breast lumpectomy with needle insertion and radiologic correlation and sentinel lymph node biopsy was indicated. The risk and benefits of procedure were explained and documented. Procedure: After radiotracer was injected and wire localization was performed by radiology, the patient was brought back into the operating room. She was placed on the OR table in the supine position. The left breast and axilla were inspected prepped and draped in usual sterile fashion. Lymphazurin blue was injected underneath the left nipple and massaged for 5 minutes. A timeout was performed. All present were in agreement. A 3 cm incision was made in the left axilla. Dissection was carried down with electrocautery. The [place] counter was used to locate a sentinel lymph node. The nipple measured 518 on the [place] counter and a blue sentinel lymph node was identified in the left axilla that measured 74 on the [place] counter. A second lymph node was identified as well that measured 69 but was not blue. Both specimens were passed off to go to pathology along with the surrounding fat. Hemostasis was noted. Next, after localization a 4 cm incision was made over the mass, in the 2 o'clock position. Electrocautery was used to carve out a lumpectomy specimen. The entire needle was included. Dissection was carried down to the pectoralis major muscle. Specimen was taken out en bloc. Wire marked lateral. Short stitch marked superior. Double stitch marked anterior. Hemostasis was achieved with electrocautery. Specimen was sent to radiology who said the clip and wire were surrounded by adequate tissue margins. The dermis was approximated with 3-0 Vicryl. The skin was closed with 4-0 Vicryl in a subcuticular and running fashion. Dermabond was applied. Patient tolerated the procedure well.
== END 2024-03-16 13:24 | disposition home or self-care (01) ==
PROVIDERS: PCP Nurse Practitioner; Visit Provider Surgery
PROC: (CPT 19120; principal; 2024-03-16 10:40)
PROC: (CPT 19301; 2024-03-16 10:40)
DX: C50.912 Malignant neoplasm of unspecified site of left female breast (principal); Z87.891 Personal history of nicotine dependence; J44.9 Chronic obstructive pulmonary disease, unspecified; I10 Essential (primary) hypertension; Z79.82 Long term (current) use of aspirin; I25.2 Old myocardial infarction; M81.0 Age-related osteoporosis without current pathological fracture; E78.5 Hyperlipidemia, unspecified
CPT/HCPCS: 19301; 38500; 19285; 38792; 88307; 88309; A9520; C1889; J0690; J1100; J2371; J2405; J2704; J3010; J7030; Q9968

== ENCOUNTER → 2024-03-31 10:49 | Outpatient (BNVA) | payer MEDICARE, OTHER, SELFPAY | PROVIDERS: PCP Nurse Practitioner; Visit Provider Surgery | DX: C50.912 Malignant neoplasm of unspecified site of left female breast (principal) | CPT/HCPCS: 99024 ==

== ENCOUNTER 2024-05-22 09:00 | Oncology outpatient (recurring) (ONCR) | payer MEDICARE, OTHER, SELFPAY ==
[2024-05-02 10:53] LABS: Basophils # 0.1 10^3/uL (0.0-0.1); Basophils % 1.2 %; Eosinophils # 0.6 10^3/uL (0.0-0.8); Eosinophils % 7.3 %; Lymphocytes # 2.6 10^3/uL (0.8-4.8); Lymphocytes % 31.2 %; Mean Corpuscular HGB Conc 32.4 g/dL (30-55); Mean Corpuscular Volume 95.6 fl (85-98); Mean Platelet Volume 9.9 fL (7.4-10.4); Monocytes # 0.6 10^3/uL (0.2-0.9); Monocytes % 6.9 %; Neutrophils # 4.34 10^3/uL (1.8-7.7); Neutrophils % 53.2 %; Nucleated Red Blood Cells % 0 %; Platelet Count 353 10^3/cmm (157-399); Red Blood Count 4.29 10^6/uL (3.85-5.65); Red Cell Distribution Width 13.6 % (12.1-15.1); White Blood Count 8.17 10^3/uL (3.29-11.43)
[2024-05-02 11:08] LABS: Alanine Aminotransferase 10 U/L (0-33); Albumin Level 4.1 g/dL (3.5-5.2); Alkaline Phosphatase 92 U/L (35-105); Anion Gap 11.8 (5-19); Aspartate Amino Transferase 18 U/L (0-32); Blood Urea Nitrogen 11 mg/dL (8-23); Calcium 8.9 mg/dL (8.5-10.5); Carbon Dioxide 29 mmol/L (22-29); Chloride 102 mmol/L (98-107); Globulin 3.8 g/dL (1.3-4.6); Glucose 101 mg/dL (65-115); Osmolality Calculated 288 mOsm/kg (285-295); Potassium 3.8 mmol/L (3.5-5.1); Sodium 139 mmol/L (136-145); Total Bilirubin 0.4 mg/dL (0.15-1.2); Total Protein 7.9 g/dL (6.6-8.7)
--- NOTE | 2024-05-09 09:54 | ONCRAD TMN_ITS ---
Radiation Oncology Weekly Treatment Management Patient: Bijal Alegria MR#: [id number] : 1950 Attending Physician: Dr. Tara Scott Date of Service: 05/09/2024 Fractions 2 out of 20 total Referring Physician(s) : Diagnosis: C50.412 - Malignant neoplasm of upper-outer quadrant of left female breast, Diagnosed 05/03/2024 (Active) Radiotherapy to date: Course: Left Breast 2023, Treatment Site: Lt Breast, Ref. ID: [id number], Energy: 6X, Dose/Fx (cGy): 266, #Fx: 2 / 16, Dose Correction (cGy): 0, Total Dose Delivered (cGy): 532, Start Date: 05/08/2024, Elapsed Days: 1 Reason for visit: The patient is being seen today as part of their regularly scheduled weekly on treatment visits to assess for acute toxicities from radiotherapy. Review of Systems: Patient had no questions or concerns. She has noticed no changes. Vital Signs: Performed on 05/09/2024 9:30 AM BMI - 20.723 kg/m2, Height - 59 in, Weight - 102.6 lbs, Temperature - 97.3 f, Pulse - 71 /min, Respiration - 17 /min, O2 Sat - 100 %, Pain - 0, Fatigue - 0 and BP - 174/ 82 mm(hg)(high/). Physical Exam: She has no changes on exam Imaging: Radiation therapy imaging related to accurate target localization (i.e. KV, MV and CBCT) was reviewed. Appropriate changes, if any, were made to ensure treatment accuracy. Plan: I encouraged her to use lotion on her skin after her treatment in the morning and again at bedtime. I recommended if she has any pruritus to use cortisone cream. Otherwise continue with her treatments as planned. Signed by: Dr. Tara Scott 05/09/2024 9:53:41 AM
--- NOTE | 2024-05-16 09:52 | ONCRAD TMN_ITS ---
Radiation Oncology Weekly Treatment Management Patient: Bijal Alegria MR#: [id number] : 1950 Attending Physician: Dr. Tara Scott Date of Service: 05/16/2024 Fractions: 7 of 16 Referring Physician(s) : Diagnosis: C50.412 - Malignant neoplasm of upper-outer quadrant of left female breast, Diagnosed 05/03/2024 (Active) Radiotherapy to date: Course: Left Breast 2023, Treatment Site: Lt Breast, Ref. ID: [id number], Energy: 6X, Dose/Fx (cGy): 266, #Fx: , Dose Correction (cGy): 0, Total Dose Delivered (cGy): 1,862, Start Date: 05/08/2024, Elapsed Days: 8 Reason for visit: The patient is being seen today as part of their regularly scheduled weekly on treatment visits to assess for acute toxicities from radiotherapy. Review of Systems: Patient had no complaints today. She has noticed no changes in the way her skin feels. Vital Signs: Performed on 05/16/2024 9:32 AM BMI - 20.763 kg/m2, Height - 59 in, Weight - 102.8 lbs, Temperature - 96.5 f, Pulse - 72 /min, Respiration - 16 /min, O2 Sat - 97 %, Pain - 0, Fatigue - 3 and BP - 158/ 77 mm(hg)(high/). Physical Exam: On examination her skin is without changes thus far. Imaging: Radiation therapy imaging related to accurate target localization (i.e. KV, MV and CBCT) was reviewed. Appropriate changes, if any, were made to ensure treatment accuracy. Plan: Will continue with her treatments as planned. While to carefully monitor her skin over the next 2 weeks as we may need to remove the bolus. Signed by: Dr. Tara Scott 05/16/2024 9:51:26 AM
== END 2024-05-22 23:59 | disposition home or self-care (01) ==
PROVIDERS: PCP Nurse Practitioner; Visit Provider Internal Medicine
DX: Z51.0 Encounter for antineoplastic radiation therapy (principal); C50.412 Malignant neoplasm of upper-outer quadrant of left female breast
CPT/HCPCS: 36415; 77280; 77295; 77300; 77334; 77336; 77387; 77412; 80053; 85025; 99024; 99213

== ENCOUNTER 2024-05-26 08:57 | Oncology outpatient (recurring) (ONCR) | payer MEDICARE, OTHER, SELFPAY ==
--- NOTE | 2024-05-23 10:01 | ONCRAD TMN_ITS ---
Radiation Oncology Weekly Treatment Management Patient: Airam Dash MR#: [id number] : 1950> Attending Physician: Dr. Tara Scott Date of Service: 05/23/2024 Fractions 12 of 20 Referring Physician(s) : Diagnosis: C50.412 - Malignant neoplasm of upper-outer quadrant of left female breast, Diagnosed 05/03/2024 (Active) Radiotherapy to date: Course: Left Breast 2023, Treatment Site: Lt Breast, Ref. ID: [id number], Energy: 6X, Dose/Fx (cGy): 266, #Fx: , Dose Correction (cGy): 0, Total Dose Delivered (cGy): 3,192, Start Date: 05/08/2024, Elapsed Days: 15 Reason for visit: The patient is being seen today as part of their regularly scheduled weekly on treatment visits to assess for acute toxicities from radiotherapy. Review of Systems: Patient has noticed no changes. She continues to weed eat Vital Signs: Performed on 05/23/2024 9:22 AM BMI - 20.4 kg/m2, Height - 59 in, Weight - 101 lbs, Temperature - 95.7 f, Pulse - 84 /min, Respiration - 18 /min, O2 Sat - 95 % (low), Pain - 0, Fatigue - 0 and BP - 158/ 78 mm(hg)(high/). Physical Exam: On exam her skin is mildly erythematous. She is also began to develop a rash she reaction across the field. Imaging: Radiation therapy imaging related to accurate target localization (i.e. KV, MV and CBCT) was reviewed. Appropriate changes, if any, were made to ensure treatment accuracy. Plan: Will continue with her treatments as planned. I have asked her to use cortisone on the area and around the nipple as well. Signed by: Dr. Tara Scott 05/23/2024 10:00:14 AM
== END 2024-05-28 23:59 | disposition home or self-care (01) ==
PROVIDERS: PCP Nurse Practitioner; Visit Provider Radiology Radiation Oncology
DX: Z51.0 Encounter for antineoplastic radiation therapy (principal); C50.412 Malignant neoplasm of upper-outer quadrant of left female breast
CPT/HCPCS: 77336; 77387; 77412; 99024

== ENCOUNTER 2024-06-15 08:51 | Oncology outpatient (recurring) (ONCR) | payer MEDICARE, OTHER, SELFPAY ==
--- NOTE | 2024-05-30 10:01 | ONCRAD TMN_ITS ---
Radiation Oncology Weekly Treatment Management Patient: Bijal Alegria MR#: [id number] : 1950 Attending Physician: Dr. 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 ID: [id number], Energy: 6X, Dose/Fx (cGy): 250, #Fx: 1 / 4, Dose Correction (cGy): 0, Total Dose Delivered (cGy): 250, Start Date: 05/30/2024, Elapsed Days: 0 Left Breast 2023, Treatment Site: Lt Breast, Ref. ID: [id number], Energy: 6X, Dose/Fx (cGy): 266, #Fx: 16 / 16, Dose Correction (cGy): 0, Total Dose Delivered (cGy): 4,256, Start Date: 05/08/2024, End Date: 05/29/2024, Elapsed Days: 21 Reason for visit: The patient is being seen today as part of their regularly scheduled weekly on treatment visits to assess for acute toxicities from radiotherapy. Review of Systems: Patient skin has become very pruritic and erythematous but apparently does not hurt. Vital Signs: Performed on 05/30/2024 9:17 AM BMI - 20.198 kg/m2, Height - 59 in, Weight - 100 lbs, Temperature - 96.5 f, Pulse - 74 /min, Respiration - 18 /min, O2 Sat - 97 %, Pain - 0, Fatigue - 6 and BP - 192/ 97 mm(hg)(high). Physical Exam: On exam her skin is erythematous but she has not developed any moist or dry desquamation as yet Imaging: Radiation therapy imaging related to accurate target localization (i.e. KV, MV and CBCT) was reviewed. Appropriate changes, if any, were made to ensure treatment accuracy. Plan: At this point we will continue with her final 3 treatments. I have sent Silvadene to her pharmacy for her to start using on her skin. Signed by: Dr. Tara Scott 05/30/2024 10:00:32 AM
--- NOTE | 2024-06-05 10:42 | N.ONRD TS_ITS ---
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 ID: [id number], Energy: 6X, Dose/Fx (cGy): 250, #Fx: 4 / 4, Dose Correction (cGy): 0, Total Dose Delivered (cGy): 1,000, Start Date: 05/30/2024, End Date: 06/05/2024, Elapsed Days: 6 Course: Left Breast 2023, Treatment Site: Lt Breast, Ref. ID: [id number], Energy: 6X, Dose/Fx (cGy): 266, #Fx: 16 / 16, Dose Correction (cGy): 0, Total Dose Delivered (cGy): 4,256, Start Date: 05/08/2024, End Date: 05/29/2024, Elapsed Days: 21 PT History: Patient is a 73-year-old lady who underwent screening mammography on December 29, 2023. She was noted to have calcifications in the left breast in the upper outer quadrant. On February 02, 2024 she had an ultrasound-guided biopsy. 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 Microcalcifications were noted in the lesion. Clinical Summary: The patient tolerated RT well. Patient treated with bolus therapy for the first 16 fractions. She had a moderate brisk reaction that was treated with Silvadene with adequate response. Patient had good range of motion LUE. Plan: End of treatment today. Continue on Silvadene until the skin reaction resolves. Follow up in in 2 weeks on 06/15/2024 or sooner if need be.. Signed by: Ish García>06/05/2024 10:40:29 AM <<Signature on File>>
--- NOTE | 2024-06-15 09:35 | ONCRAD EPV_ITS ---
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 ID: [id number], Energy: 6X, Dose/Fx (cGy): 250, #Fx: 4 / 4, Dose Correction (cGy): 0, Total Dose Delivered (cGy): 1,000, Start Date: 05/30/2024, End Date: 06/05/2024, Elapsed Days: 6 Treatment Site: Lt Breast, Ref. ID: [id number], Energy: 6X, Dose/Fx (cGy): 266, #Fx: 16 / 16, Dose Correction (cGy): 0, Total Dose Delivered (cGy): 4,256, Start Date: 05/08/2024, End Date: 05/29/2024, Elapsed Days: 21 Current History: This is a pleasant 74-year-old female who finished a course of XRT to the LEFT Breast completing this on 06/05/2024. She received 5256 cGy in 20 fractions over 27 elapsed days completing this on 06/05/2024 to the LEFT INTACT BREAST. Patient was to start Arimidex but is unsure if she is started that. She is in a check at home and give us a call. Current Medications: ? Arimidex, and others as noted in prior documents Allergies: As listed on prior documents Current Complaints / Review of Systems: . No changes Vital Signs: Performed on 06/15/2024 9:05 AM BMI - 20.157 kg/m2, Height - 59 in, Weight - 99.8 lbs, Temperature - 96.2 f, Pulse - 66 /min, Respiration - 18 /min, O2 Sat - 96 %, Pain - 0, Fatigue - 6 and BP - 189/ 85 mm(hg)(high/). Physical Exam: AAO x3. Skin healing well with no moist desquamation. Mild erythema. Good range of motion of both upper extremities. No swelling noted General: Alert and oriented x 3. No acute distress. HEENT: Normocephalic, atraumatic. Extraocular Movements Intact: Pupils Equal, Round, Reactive to Light and Accommodation: Sclerae anicteric. Oral cavity is clear without lesions, masses or ulcers. NECK: Supple without supraclavicular or jugular lymphadenopathy. LUNGS: Clear to auscultation bilaterally without rales, rhonchi or wheeze. HEART: Regular rate and rhythm, normal S1 and S2 without murmur, gallop or rub. MUSCULOSKELETAL: No tenderness or percussion pain over the axial skeleton, scapulae or pelvis. ABDOMEN: Soft, nontender, nondistended without masses or organomegaly. Bowell sounds are present. EXTREMITIES: No peripheral edema is identified. Limited motor and sensory examination are grossly intact and symmetric bilaterally. Good ROM. No swelling. NEUROLOGIC: Cranial nerves II ???XII are grossly intact. Normal sensation, strength 5/5 in all extremities, normal gait, no ataxia. Performance Status: KPS 90 Lab: None pending. Pathology: Primary, c50.412 - malignant neoplasm of upper-outer quadrant of left female breast, Diagnosed 05/03/2024 (active) . Imaging: See HPI Impression: LEFT Breast Cancer 2 weeks s/p adjuvant XRT to the Left Breast To be started on Arimidex per [facility] Mammogram in November 2024 Signed by: 06/15/2024 9:34:10 AM <<Signature on File>> Time spent with patient: 15 minutes. NO CHARGE as patient less than 90 days since treatment CPT Code: CPT Code:
== END 2024-06-28 23:59 | disposition home or self-care (01) ==
PROVIDERS: PCP Nurse Practitioner; Visit Provider Radiology Radiation Oncology
DX: Z51.0 Encounter for antineoplastic radiation therapy (principal); C50.412 Malignant neoplasm of upper-outer quadrant of left female breast; C50.411 Malignant neoplasm of upper-outer quadrant of right female breast; Z17.0 Estrogen receptor positive status [ER+]; F17.210 Nicotine dependence, cigarettes, uncomplicated
CPT/HCPCS: 77336; 77387; 77412; 99024

== ENCOUNTER 2024-07-11 12:06 | Oncology outpatient (recurring) (ONCR) | payer MEDICARE, OTHER, SELFPAY ==
[2024-07-11 12:25] LABS: Basophils # 0.1 10^3/uL (0.0-0.1); Eosinophils # 0.2 10^3/uL (0.0-0.8); Eosinophils % 3.2 %; Hematocrit 38.8 % (36-47); Lymphocytes # 1.5 10^3/uL (0.8-4.8); Lymphocytes % 25.2 %; Mean Corpuscular HGB Conc 33.8 g/dL (30-55); Mean Corpuscular Hemoglobin 31.7 pg (27-33); Mean Corpuscular Volume 93.9 fl (85-98); Mean Platelet Volume 9.5 fL (7.4-10.4); Monocytes # 0.5 10^3/uL (0.2-0.9); Monocytes % 8.8 %; Neutrophils % 61.5 %; Nucleated Red Blood Cells % 0 %; Platelet Count 311 10^3/cmm (157-399); Red Blood Count 4.13 10^6/uL (3.85-5.65); Red Cell Distribution Width 13.1 % (12.1-15.1); White Blood Count 6.02 10^3/uL (3.29-11.43)
[2024-07-11 12:42] LABS: Alanine Aminotransferase 13 U/L (0-33); Alkaline Phosphatase 85 U/L (35-105); Aspartate Amino Transferase 20 U/L (0-32); Blood Urea Nitrogen 9 mg/dL (8-23); Carbon Dioxide 25 mmol/L (22-29); Chloride 94 mmol/L (98-107); Globulin 3.5 g/dL (1.3-4.6); Glucose 102 mg/dL (65-115); Osmolality Calculated 269 mOsm/kg (285-295); Sodium 130 mmol/L (136-145); Total Bilirubin 0.3 mg/dL (0.15-1.2); Total Protein 7.5 g/dL (6.6-8.7)
[2024-07-11 12:49] LABS: Anion Gap 14.9 (5-19); Potassium 3.9 mmol/L (3.5-5.1)
== END 2024-07-29 23:55 | disposition home or self-care (01) ==
LOC: ONCMED 12:06
PROVIDERS: Internal Medicine Medical Oncology; PCP Nurse Practitioner; Visit Provider Radiology Radiation Oncology
DX: Z51.0 Encounter for antineoplastic radiation therapy (principal); C50.412 Malignant neoplasm of upper-outer quadrant of left female breast; Z17.0 Estrogen receptor positive status [ER+]; F17.210 Nicotine dependence, cigarettes, uncomplicated; Z92.3 Personal history of irradiation; Z79.899 Other long term (current) drug therapy
CPT/HCPCS: 36415; 80053; 85025; 99214

== ENCOUNTER 2024-07-20 13:47 | Outpatient (CLI) | payer MEDICARE, OTHER, SELFPAY ==
--- NOTE | 2024-07-20 14:00 | XR_ITS ---
WS: [id number] DEXA (DUAL ENERGY X-RAY ABSORPTIOMETRY) Bone mineral density was performed using a [employer] machine. HISTORY: OSTEOPOROSIS COMPARISON: 12/07/2017 Lumbar spine BMD (L1-L4): 0.969 g/cm2 T score: -1.8 Z score: 0.4 Total hip BMD: Left: 0.841 g/cm2. T score: -1.3 Z score: 0.6 Right: 0.850 g/cm2. T score: -1.3 Z score: 0.6 10 year probability of a major osteoporotic fracture is 13.9%. Compared to the prior study from 12/07/2017. Lumbar spine bone mineral density has increased by 3.6%. Bilateral hips bone mineral density has decreased by 3.0%. XR/XR DEXA axial skeleton* [id number] IMPRESSION: OSTEOPENIA based upon the WHO classification for females. Significant increase in bone mineral density within the lumbar spine since prio r study. Significant decrease in bone mineral density within the hips since the prior st daliay.
== END 2024-07-20 13:48 | disposition home or self-care (01) ==
LOC: RAD 13:49
PROVIDERS: PCP Nurse Practitioner; Visit Provider Internal Medicine Medical Oncology
DX: M81.0 Age-related osteoporosis without current pathological fracture (principal); M85.80 Other specified disorders of bone density and structure, unspecified site
CPT/HCPCS: 77080

== ENCOUNTER 2024-08-21 07:10 | Outpatient (CLI) | payer MEDICARE, OTHER, SELFPAY ==
--- NOTE | 2024-08-21 07:15 | MR_ITS ---
WS: [id number] MRI BRAIN WITHOUT CONTRAST HISTORY: R41.3 - Other amnesia COMPARISON: None available. TECHNIQUE: Diffusion imaging, multiplanar T1, T2 and FLAIR imaging obtained. No evidence for acute infarct or hemorrhage. Noel-white matter differentiation is normal. Moderate bilateral volume loss and small vessel disease. There are a few scattered T2 and FLAIR signa l hyperintensities, slightly greater on the RIGHT. No large territory infarct. Mild bilateral small v essel ischemic disease in the wyatt, RIGHT greater than LEFT. No mass at the cerebellopontine angle. M ild hippocampal atrophy. Ventricles and extra-axial spaces are normal. Normal carotid flow voids. No inferior displacement of cerebellar tonsils. The sella turcica and pituitary gland are unremarkabl e. Dural venous sinuses and [place] demonstrate no abnormality on this unenhanced studies. Paranasal sinuses: Clear. Mastoid air cells: Mild increased signal in the LEFT mastoid air cells. Calvarium and scalp: Intact. MR/MR head wo con* [id number] IMPRESSION: 1. No acute infarct or hemorrhage. 2. Mild bilateral hippocampal atrophy. 3. Moderate volume loss and mild small vessel ischemic disease. Minimal ischem ic disease in the wyatt also, RIGHT greater than LEFT.
== END 2024-08-21 07:11 | disposition home or self-care (01) ==
LOC: RAD 07:10
PROVIDERS: PCP Nurse Practitioner; Visit Provider Nurse Practitioner
DX: R41.3 Other amnesia (principal); C50.412 Malignant neoplasm of upper-outer quadrant of left female breast; G31.89 Other specified degenerative diseases of nervous system; I67.82 Cerebral ischemia
CPT/HCPCS: 70551; 80053; 82306; 82607; 84439; 84443; 84481; 85025

== ENCOUNTER 2024-09-25 09:30 | Oncology outpatient (recurring) (ONCR) | payer MEDICARE, OTHER, SELFPAY ==
[2024-09-25 11:18] LABS: Blood Urea Nitrogen 15 mg/dL (8-23); Calcium 8.5 mg/dL (8.5-10.5); Carbon Dioxide 29 mmol/L (22-29); Chloride 102 mmol/L (98-107); Glucose 78 mg/dL (65-115); NT Pro B Type Natriuretic Pept 390 pg/mL (0-125); Osmolality Calculated 286 mOsm/kg (285-295); Sodium 138 mmol/L (136-145)
--- NOTE | 2024-09-25 13:56 | ONCRAD EPV_ITS ---
Radiation Oncology Established Patient Visit Patient: Airam Appiah [id number] : 1950> Age: 74> Sex: Female> Dictated by: Dr. 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 ID: [id number], Energy: 6X, Dose/Fx (cGy): 250, #Fx: 4 / 4, Dose Correction (cGy): 0, Total Dose Delivered (cGy): 1,000, Start Date: 05/30/2024, End Date: 06/05/2024, Elapsed Days: 6 Treatment Site: Lt Breast, Ref. ID: [id number], Energy: 6X, Dose/Fx (cGy): 266, #Fx: 16 / 16, Dose Correction (cGy): 0, Total Dose Delivered (cGy): 4,256, Start Date: 05/08/2024, End Date: 05/29/2024, Elapsed Days: 21 Current History: She notes some SCHWARTZ since on Anastrozole. No breast sxs. FU mammogram not yet scheduled. Still smokng ??? ppd. Current Medications: Allergies: Current Complaints / Review of Systems: . Vital Signs: Performed on 09/25/2024 11:27 AM BMI - 19.996 kg/m2, Height - 59 in, Weight - 99 lbs, Temperature - 96.8 f, Pulse - 68 /min, Respiration - 16 /min, O2 Sat - 100 %, Pain - 0, Fatigue - 0 and BP - 150/ 82 mm(hg)(high/). Physical Exam: General: Alert and oriented x 3. No acute distress. Performance Status: ECOG 0. Lab: None pending. Pathology: Primary, c50.412 - malignant neoplasm of upper-outer quadrant of left female breast, Diagnosed 05/03/2024 (active) . Imaging: See HPI Impression: Favorable low risk St I IDC of the breast. Doing well post treatment. Needs med onc FU to assess tolerance of anastrozole. Needs annual MMG. Discussed the critical need to quit smoking. FU here PRN. Signed by: 09/25/2024 4:48:02 PM <<Signature on File>> Time spent with patient: 20 minutes CPT Code: CPT Code:
== END 2024-09-28 23:59 | disposition home or self-care (01) ==
PROVIDERS: Internal Medicine Cardiovascular Disease; PCP Nurse Practitioner; Visit Provider Radiology Radiation Oncology
DX: C50.412 Malignant neoplasm of upper-outer quadrant of left female breast (principal); Z92.3 Personal history of irradiation; Z79.811 Long term (current) use of aromatase inhibitors; I25.10 Atherosclerotic heart disease of native coronary artery without angina pectoris; I11.0 Hypertensive heart disease with heart failure; I50.32 Chronic diastolic (congestive) heart failure; F03.B18 Unspecified dementia, moderate, with other behavioral disturbance; F17.200 Nicotine dependence, unspecified, uncomplicated; Z95.2 Presence of prosthetic heart valve; I34.0 Nonrheumatic mitral (valve) insufficiency; I25.5 Ischemic cardiomyopathy
CPT/HCPCS: 36415; 80048; 83880; 99213; 99214

== ENCOUNTER 2024-10-19 11:48 | Oncology outpatient (recurring) (ONCR) | payer MEDICARE, OTHER, SELFPAY ==
--- NOTE | 2024-10-18 11:15 | USCV_ITS ---
Bijal Alegria Age: 74 Gender: F : 1950 Exam Date: 10/18/2024 11:04 Ordering Phys: Juan Savage MD ([email or web address]) Technologist: CT Exam Location: [facility] – [place] Indication: BP: 150 / 82 HR: 71 Rhythm: Sinus Technical Quality: Adequate MEASUREMENTS (Male / Female) Normal Values 2D ECHO LVOT Diameter 2.1 cm LV Ejection Fraction MOD 4C 50.9 % LV Ejection Fraction MOD 2C 67.5 % LV Ejection Fraction 2C AL 69.1 % LA Diameter 4.8 cm RA Systolic Volume 4C AL 36.2 ml RA Systolic Volume 4C MOD 35.8 ml LA Sys Volume AL 71.9 cm cubed LA Sys Volume Index AL 52.6 cm cubed/m squared Aorta at Sinotubular Diameter 1.7 cm IVC Diameter 1.6 cm M-MODE LA Ao Ratio MM 1.9 AV Cusp Separation MM 1.4 cm DOPPLER AV Peak Velocity 218.0 cm/s LVOT Peak Velocity 100.0 cm/s AV Area Cont Eq vti 1.8 cm squared AV Area Cont Eq pk 1.5 cm squared MV Peak Velocity 179.0 cm/s MV Area PHT 2.7 cm squared Mitral E to A Ratio 1.7 TV Peak Velocity 282.5 cm/s TR Peak Velocity 284.0 cm/s TR Peak Gradient 32.3 mmHg TV Peak E Velocity 72.0 cm/s Right Atrial Pressure 3.0 mmHg Pulmonary Artery Systolic Pressu 35.3 mmHg PV Peak Velocity 101.0 cm/s FINDINGS Left Ventricle Normal LV size and ejection fraction of 60%.mild left ventricular hypertrophy. Moderate hypokinesia of the basal inferior wall segment.Grade III/IV diastolic dysfunction (restrictive filling pattern), severely elevated filling pressures. Right Ventricle The right ventricle is normal in size and function. Right Atrium Mildly dilated right atrium Left Atrium Severely dilated left atrium with a systolic volume index of 52.6 mL/m squared Mitral Valve Thickened mitral valve. Moderately severe mitral valve regurgitation. Mitral annular ring? Aortic Valve The bioprosthetic valve the aortic position appears to be well- seated. Peak velocity 2.18 m/s. Peak gradient of 19 and a mean gradient of 9 mmHg Tricuspid Valve Trace tricuspid valve regurgitation. Pulmonic Valve Mild pulmonary valve regurgitation. Pericardium Normal pericardium without effusion. Aorta Normal ascending aorta dimension. IVC Normal inferior vena cava. CONCLUSIONS Normal LV size and ejection fraction of 60%.mild left ventricular hypertrophy. Moderate hypokinesia of the basal inferior wall segment.Grade III/IV diastolic dysfunction (restrictive filling pattern), severely elevated filling pressures. Mildly dilated right atrium. Severely dilated left atrium with a systolic volume index of 52.6 mL/m squared. Thickened mitral valve. Moderately severe mitral valve regurgitation. Possible mitral annular ring?. The bioprosthetic valve the aortic position appears to be well- seated. Peak velocity 2.18 m/s. Peak gradient of 19 and a mean gradient of 9 mmHg Trace tricuspid valve regurgitation. Estimated pulmonary artery peak systolic pressure 35 mmHg Mild pulmonary valve regurgitation. There is no pericardial effusion. There are no intracardiac masses. Compared to the study from 09/18/2022, there may not be a significant change Dr Juan Savage MD FAC (Electronically Signed) Final Date: 26 October 2024 10:11 S
== END 2024-10-28 23:59 | disposition home or self-care (01) ==
PROVIDERS: PCP Nurse Practitioner; Visit Provider Radiology Radiation Oncology
DX: Z95.2 Presence of prosthetic heart valve (principal); C50.412 Malignant neoplasm of upper-outer quadrant of left female breast
CPT/HCPCS: 93306; 99213

== ENCOUNTER 2024-11-20 10:34 | Oncology outpatient (recurring) (ONCR) | payer MEDICARE, OTHER, SELFPAY ==
--- NOTE | 2024-11-20 11:30 | MM_ITS ---
WS: [id number] DIAGNOSTIC BILATERAL DIGITAL BREAST TOMOSYNTHESIS MAMMOGRAPHY WITH CAD HISTORY: surveillance, history of LEFT breast cancer. COMPARISON: 12/29/2023, 12/07/2017 TECHNIQUE: Bilateral craniocaudad, mediolateral oblique, and mediolateral views are submitted with to mosperla and CHINEDU. Computer aided detection utilized. Breast composition: The breasts are heterogeneously dense, which may obscure small masses. Scattered benign calcifications in each breast. Lumpectomy site in the upper outer quadrant of the LE FT breast. No recurrent mass. No suspicious mass in the RIGHT breast. MM/MM diag BI tomosynthesis [id number] IMPRESSION: BI-RADS: 2 - Benign FOLLOW UP: 1 Year Follow-up
== END 2024-11-28 23:59 | disposition home or self-care (01) ==
PROVIDERS: PCP Nurse Practitioner; Visit Provider Radiology Radiation Oncology
DX: C50.412 Malignant neoplasm of upper-outer quadrant of left female breast (principal); R92.333 Mammographic heterogeneous density, bilateral breasts
CPT/HCPCS: 77062; G0279

== ENCOUNTER → 2024-12-20 08:50 | Outpatient (BNVA) | payer MEDICARE, OTHER, SELFPAY | PROVIDERS: PCP Nurse Practitioner; Referring Provider Nurse Practitioner; Visit Provider Psychiatry & Neurology Neurology | DX: F03.B18 Unspecified dementia, moderate, with other behavioral disturbance (principal); F01.B4 Vascular dementia, moderate, with anxiety; E55.9 Vitamin D deficiency, unspecified; R53.83 Other fatigue; R26.89 Other abnormalities of gait and mobility | CPT/HCPCS: 36415; 82542; 83520; 99203 ==

== ENCOUNTER 2024-12-22 10:45 | Outpatient (CLI) | payer MEDICARE, OTHER, SELFPAY ==
--- NOTE | 2024-12-22 11:00 | MR_ITS ---
WS: [id number] MRI HEAD WITH CONTRAST TECHNIQUE: Sagittal T1, T2 axial, T2 axial FLAIR, axial susceptibility weighted imaging, axial diffus ion weighted images, and coronal T2 images were obtained. Pre and post-T1 axial and post T1 coronal i mages. ADC and FSPGR images. CLINICAL INFORMATION: F03.B18 - Unspecified dementia, moderate, with other beha... COMPARISON: MRI 08/21/2024 FINDINGS: No evidence of restricted diffusion to suggest acute ischemia. Ventricular system and basal cisterns are patent. Mild to moderate small vessel changes similar to 08/21/2024. Small vessel changes in the p ons. Moderate parenchymal volume loss appears stable. Normal posterior fossa. Normal vascular flow vo ids at the skull base. No extra-axial fluid collections. No evidence of mass or mass effect. Paranasa l sinuses are well aerated. Mastoid air cells are well aerated. Normal posterior nasopharynx. No hemo siderin on the susceptibility weighted images. Normal optic chiasm and pituitary infundibulum. Mild symmetric atrophy temporal lobes hippocampal for mations. No abnormal gadolinium enhancement. Normal dural venous sinuses. MR/MR head wo/w con [id number] IMPRESSION: 1. No evidence of restricted diffusion to suggest acute ischemia. 2. Mild to moderate small vessel changes with moderate parenchymal volume loss similar to the prior study. Small vessel changes in the wyatt. 3. Mild symmetric atrophy of the temporal lobes and hippocampal formations sim ilar in appearance. 4. No hemosiderin on susceptibility-weighted images. 5. No abnormal gadolinium enhancement. 6. No other acute findings or significant changes compared to previous.
[2024-12-22] MEDS: gadobenate dimeglumine 20 mL vial IV (11:33)
== END 2024-12-22 10:46 | disposition home or self-care (01) ==
LOC: RAD 10:46
PROVIDERS: PCP Nurse Practitioner; Visit Provider Psychiatry & Neurology Neurology
DX: F03.B18 Unspecified dementia, moderate, with other behavioral disturbance (principal); F01.B4 Vascular dementia, moderate, with anxiety; E55.9 Vitamin D deficiency, unspecified; R53.83 Other fatigue; R93.89 Abnormal findings on diagnostic imaging of other specified body structures; G31.89 Other specified degenerative diseases of nervous system
CPT/HCPCS: 70553

== ENCOUNTER 2024-12-27 08:51 | Outpatient (CLI) | payer MEDICARE, OTHER, SELFPAY ==
--- NOTE | 2024-12-27 09:45 | USCV_ITS ---
Bijal Alegria Age: 74 Gender: F : 1950 Exam Date: 12/27/2024 09:55 Ordering Phys: Warren Bronson MD Technologist: ALBERTO Exam Location: [facility] – [place] Indication: memory loss Risk Factors: Previous Vascular Surgery: Right Brachial BP: / Left Brachial BP: / Right Left Velocity (cm/s) Spectral Plaque Velocity (cm/s) Spectral Plaque Syst/Diast Broadening Syst/Diast Broadening 57.30/ 18.20 Prox CCA 58.70 / 18.70 63.40/ 20.90 Mid CCA 82.20 / 25.90 68.70/ 16.60 Distal CCA 77.30 / 23.00 63.10/ 16.40 Prox ICA 82.60 / 26.40 73.00/ 30.70 Mid ICA 60.80 / 19.90 57.10/ 21.40 Distal ICA 54.60 / 17.50 64.30 ECA 205.50 0.90 ICA/CCA 1.10 Antegrade Vertebral Antegrade 61.30/ 15.30 cm/s 50.90/ 17.00 cm/s Bi Subclavian Bi 72.90 135.9 0 CONCLUSIONS Right ICA stenosis <50%. Moderate atheromatous plaque right carotid bulb/ICA. Left ICA stenosis <50%. Moderate atheromatous plaque left carotid bulb/ICA. Intimal thickening in the common carotid arteries and internal carotid arteries bilaterally. Normal antegrade Doppler flow noted in the right vertebral artery. Normal antegrade Doppler flow noted in the left vertebral artery. Jimmy Marrero MD (Electronically Signed) Final Date: 27 December 2024 12:29 S
== END 2024-12-27 08:52 | disposition home or self-care (01) ==
LOC: RAD 08:51
PROVIDERS: PCP Nurse Practitioner; Visit Provider Psychiatry & Neurology Neurology
DX: F03.B18 Unspecified dementia, moderate, with other behavioral disturbance (principal); R26.89 Other abnormalities of gait and mobility; F01.B4 Vascular dementia, moderate, with anxiety; E55.9 Vitamin D deficiency, unspecified; R53.83 Other fatigue; I65.23 Occlusion and stenosis of bilateral carotid arteries; R93.89 Abnormal findings on diagnostic imaging of other specified body structures
CPT/HCPCS: 93880

== ENCOUNTER 2025-01-10 08:59 | Oncology outpatient (recurring) (ONCR) | payer MEDICARE, OTHER, SELFPAY ==
[2025-01-10 10:04] LABS: Basophils # 0.1 10^3/uL (0.0-0.1); Basophils % 0.9 %; Eosinophils # 0.3 10^3/uL (0.0-0.8); Eosinophils % 3.3 %; Hematocrit 33.8 % (36-47); Lymphocytes # 1.9 10^3/uL (0.8-4.8); Lymphocytes % 21.2 %; Mean Corpuscular HGB Conc 30.8 g/dL (30-55); Mean Corpuscular Hemoglobin 25.1 pg (27-33); Mean Corpuscular Volume 81.6 fl (85-98); Mean Platelet Volume 10.1 fL (7.4-10.4); Monocytes # 0.6 10^3/uL (0.2-0.9); Neutrophils # 6.12 10^3/uL (1.8-7.7); Neutrophils % 67.1 %; Nucleated Red Blood Cells % 0 %; Platelet Count 482 10^3/cmm (157-399); Red Blood Count 4.14 10^6/uL (3.85-5.65); Red Cell Distribution Width 16.5 % (12.1-15.1); White Blood Count 9.12 10^3/uL (3.29-11.43)
[2025-01-10 10:13] LABS: Alanine Aminotransferase 17 U/L (0-33); Albumin Level 3.6 g/dL (3.5-5.2); Alkaline Phosphatase 78 U/L (35-105); Aspartate Amino Transferase 23 U/L (0-32); Blood Urea Nitrogen 18 mg/dL (8-23); Calcium 9.4 mg/dL (8.5-10.5); Carbon Dioxide 28 mmol/L (22-29); Chloride 100 mmol/L (98-107); Creatinine Clr Calc Pharmacy 42.3305; Globulin 3.7 g/dL (1.3-4.6); Glucose 121 mg/dL (65-115); Osmolality Calculated 289 mOsm/kg (285-295); Sodium 138 mmol/L (136-145); Total Bilirubin 0.2 mg/dL (0.15-1.2); Total Protein 7.3 g/dL (6.6-8.7)
[2025-01-10 10:28] LABS: Slide Review Slide Review Perform
== END 2025-01-26 23:59 | disposition home or self-care (01) ==
PROVIDERS: Internal Medicine; PCP Nurse Practitioner; Visit Provider Radiology Radiation Oncology
DX: Z08 Encounter for follow-up examination after completed treatment for malignant neoplasm (principal); M85.80 Other specified disorders of bone density and structure, unspecified site; I11.0 Hypertensive heart disease with heart failure; E78.5 Hyperlipidemia, unspecified; I25.10 Atherosclerotic heart disease of native coronary artery without angina pectoris; I35.0 Nonrheumatic aortic (valve) stenosis; I50.9 Heart failure, unspecified; J44.9 Chronic obstructive pulmonary disease, unspecified; G47.33 Obstructive sleep apnea (adult) (pediatric); E05.00 Thyrotoxicosis with diffuse goiter without thyrotoxic crisis or storm; Z72.0 Tobacco use; Z92.23 Personal history of estrogen therapy; Z85.3 Personal history of malignant neoplasm of breast; Z92.3 Personal history of irradiation; Z71.6 Tobacco abuse counseling
CPT/HCPCS: 36415; 80053; 85025; 99213

== ENCOUNTER → 2025-01-15 13:14 | Outpatient (BNVA) | payer MEDICARE, OTHER, SELFPAY | PROVIDERS: PCP Nurse Practitioner; Visit Provider Nurse Practitioner | DX: R73.9 Hyperglycemia, unspecified (principal); E05.90 Thyrotoxicosis, unspecified without thyrotoxic crisis or storm; D64.9 Anemia, unspecified | CPT/HCPCS: 83036; 83550; 84443 ==

== ENCOUNTER → 2025-03-26 09:00 | Outpatient (BNVA) | payer MEDICARE, OTHER, SELFPAY | PROVIDERS: PCP Nurse Practitioner; Visit Provider Nurse Practitioner Family | DX: I11.0 Hypertensive heart disease with heart failure (principal); I50.33 Acute on chronic diastolic (congestive) heart failure; I25.10 Atherosclerotic heart disease of native coronary artery without angina pectoris; I27.20 Pulmonary hypertension, unspecified; Z79.82 Long term (current) use of aspirin; G47.33 Obstructive sleep apnea (adult) (pediatric); Z85.3 Personal history of malignant neoplasm of breast; I25.2 Old myocardial infarction; Z95.2 Presence of prosthetic heart valve; Z95.5 Presence of coronary angioplasty implant and graft; Z87.891 Personal history of nicotine dependence | CPT/HCPCS: 99214 ==

== ENCOUNTER → 2025-04-04 13:01 | Outpatient (BNVA) | payer MEDICARE, OTHER, SELFPAY | PROVIDERS: PCP Nurse Practitioner; Visit Provider Psychiatry & Neurology Neurology | DX: F03.B18 Unspecified dementia, moderate, with other behavioral disturbance (principal); E55.9 Vitamin D deficiency, unspecified; R53.83 Other fatigue; R26.89 Other abnormalities of gait and mobility | CPT/HCPCS: 99212 ==

== ENCOUNTER → 2025-04-09 15:13 | Outpatient (BNVA) | payer MEDICARE, OTHER, SELFPAY | PROVIDERS: PCP Nurse Practitioner; Visit Provider Nurse Practitioner | DX: E78.5 Hyperlipidemia, unspecified (principal); I10 Essential (primary) hypertension; I50.32 Chronic diastolic (congestive) heart failure; E61.1 Iron deficiency; F41.8 Other specified anxiety disorders | CPT/HCPCS: 80053; 83550; 85025 ==

== ENCOUNTER 2025-04-11 08:35 | Oncology outpatient (recurring) (ONCR) | payer MEDICARE, OTHER, SELFPAY ==
[2025-04-11 09:11] LABS: Basophils # 0.1 10^3/uL (0.0-0.1); Basophils % 1.3 %; Eosinophils # 0.3 10^3/uL (0.0-0.8); Eosinophils % 3.6 %; Hematocrit 41.4 % (36-47); Lymphocytes % 26.3 %; Mean Corpuscular HGB Conc 32.6 g/dL (30-55); Mean Corpuscular Hemoglobin 29.3 pg (27-33); Monocytes # 0.7 10^3/uL (0.2-0.9); Monocytes % 9.6 %; Neutrophils % 58.8 %; Nucleated Red Blood Cells % 0 %; Platelet Count 348 10^3/cmm (157-399); Red Cell Distribution Width 16.6 % (12.1-15.1); White Blood Count 7.49 10^3/uL (3.29-11.43)
[2025-04-11 09:26] LABS: Alanine Aminotransferase 14 U/L (0-33); Albumin Level 3.8 g/dL (3.5-5.2); Alkaline Phosphatase 80 U/L (35-105); Anion Gap 15.5 (5-19); Aspartate Amino Transferase 19 U/L (0-32); Blood Urea Nitrogen 27 mg/dL (8-23); Calcium 9.3 mg/dL (8.5-10.5); Carbon Dioxide 26 mmol/L (22-29); Chloride 99 mmol/L (98-107); Globulin 4.2 g/dL (1.3-4.6); Glucose 98 mg/dL (65-115); Lactate Dehydrogenase 192 U/L (135-214); Osmolality Calculated 289 mOsm/kg (285-295); Potassium 3.5 mmol/L (3.5-5.1); Sodium 137 mmol/L (136-145); Total Bilirubin 0.2 mg/dL (0.15-1.2)
== END 2025-04-28 23:59 | disposition home or self-care (01) ==
PROVIDERS: Internal Medicine; PCP Nurse Practitioner; Visit Provider Internal Medicine Medical Oncology
DX: Z08 Encounter for follow-up examination after completed treatment for malignant neoplasm (principal); Z85.3 Personal history of malignant neoplasm of breast; E55.9 Vitamin D deficiency, unspecified; F17.210 Nicotine dependence, cigarettes, uncomplicated; R03.0 Elevated blood-pressure reading, without diagnosis of hypertension
CPT/HCPCS: 36415; 80053; 83615; 85025; 99214

== ENCOUNTER 2025-04-24 07:28 | Outpatient (CLI) | payer MEDICARE, OTHER, SELFPAY ==
--- NOTE | 2025-04-24 08:00 | CT_ITS ---
WS: [email or web address] LDCT LUNG CANCER SCREENING HISTORY: Z87.891 - Personal history of nicotine dependence TECHNIQUE: Axial imaging performed from the apices to 1 cm below the costophrenic angles. Coronal and sagittal reformats are submitted with axial MIP series. All CT scans at [facility] use at least one of these dose optimization techniques: automated exposure control; mA and/or kV adjustment per patient size (includes targeted exams where dose is matched to clinical indication); or iterative reconstruction. DLP: 38.19 mGy.cm DIvol: Mean CTDIvol: 0.60 (mGy) COMPARISON: 05/27/2023 Diagnostic quality: Satisfactory Lungs: Marked pulmonary hyperexpansion with hazy attenuation and changes of centrilobular emphysema. 4 mm nodule LEFT upper lobe, image 121 of series 4. There is an additional pleural-parenchymal scarring anteriorly in the LEFT upper lobe which is new since the prior study also. Pleural tag medial LEFT upper lobe. Very tiny spiculated 3 mm nodule LEFT upper lobe, image 52 series 4. Additional 5 mm nodule LEFT upper lobe image 70 series 4. Subpleural tag RIGHT upper lobe, image 76 series 4. Lobulated 6 mm nodule RIGHT upper lobe, image 103 series 7. There are additional scattered small irregular nodules throughout the lungs. 5 mm nodule RIGHT lower lobe, image 190 of series 4. Majority of these nodules in the pleural parenchymal thickening in the LEFT upper lobe are all new since the prior study. Heart: Enlarged heart. No significant LEFT atrial enlargement. Prior CABG.. Other findings: Suprarenal aortic calcifications. Adrenal glands are poorly visualized. CT/CT lung screening [id number] IMPRESSION: LUNG-RADS: 4A-Probably Suspicious FOLLOW UP: PET/CT recommended OTHER FINDINGS (S MODIFIER): None. Recommend follow-up PET/CT due to the significant change since 2022. All these nodules may be inflammatory. Most significant changes in the LEFT upper lobe in volving pleural-parenchymal subsolid opacification which may be chronic and rel ated to scarring.
== END 2025-04-24 07:29 | disposition home or self-care (01) ==
PROVIDERS: PCP Nurse Practitioner; Visit Provider Nurse Practitioner
DX: Z12.2 Encounter for screening for malignant neoplasm of respiratory organs (principal); Z87.891 Personal history of nicotine dependence; R91.8 Other nonspecific abnormal finding of lung field; J43.2 Centrilobular emphysema; J98.4 Other disorders of lung; J94.8 Other specified pleural conditions; J92.9 Pleural plaque without asbestos; I51.7 Cardiomegaly; Z98.890 Other specified postprocedural states; I70.8 Atherosclerosis of other arteries
CPT/HCPCS: 71271

== ENCOUNTER → 2025-06-18 12:46 | Outpatient (BNVA) | payer MEDICARE, OTHER, SELFPAY | PROVIDERS: PCP Nurse Practitioner; Referring Provider Nurse Practitioner; Visit Provider Psychiatry & Neurology Neurology | DX: F03.B18 Unspecified dementia, moderate, with other behavioral disturbance (principal) | CPT/HCPCS: G0463 ==

== ENCOUNTER 2025-07-13 13:00 | Oncology outpatient (recurring) (ONCR) | payer MEDICARE, OTHER, SELFPAY ==
[2025-07-11 08:50] LABS: Hematocrit 39.5 % (36-47); Hemoglobin 13.30 g/dL (11.27-16.99); Mean Corpuscular HGB Conc 33.7 g/dL (30-55); Mean Corpuscular Hemoglobin 31.5 pg (27-33); Mean Corpuscular Volume 93.6 fl (85-98); Nucleated Red Blood Cells % 0 %; Platelet Count 327 10^3/cmm (157-399); Red Blood Count 4.22 10^6/uL (3.85-5.65); White Blood Count 7.26 10^3/uL (3.29-11.43)
[2025-07-11 09:27] LABS: Alanine Aminotransferase 15 U/L (0-33); Albumin Level 4.0 g/dL (3.5-5.2); Alkaline Phosphatase 69 U/L (35-105); Anion Gap 13.8 (5-19); Aspartate Amino Transferase 23 U/L (0-32); Blood Urea Nitrogen 17 mg/dL (8-23); Calcium 9.0 mg/dL (8.5-10.5); Carbon Dioxide 26 mmol/L (22-29); Chloride 101 mmol/L (98-107); Cholesterol 228 mg/dL (0-200); Creatinine Clr Calc Pharmacy 42.6047; Globulin 3.7 g/dL (1.3-4.6); Glucose 108 mg/dL (65-115); HDL Cholesterol 52 mg/dL (60-100); Iron 154 ug/dL (37-145); Osmolality Calculated 286 mOsm/kg (285-295); Potassium 3.8 mmol/L (3.5-5.1); Sodium 137 mmol/L (136-145); Thyroid Stimulating Hormone 1.61 uIU/mL (0.27-4.20); Total Protein 7.7 g/dL (6.6-8.7); Triglycerides 67 mg/dL (0-150); VLDL Cholestrol Calculation 13 mg/dL (0-30); Vitamin B12 327 pg/mL (232-1245)
--- NOTE | 2025-07-13 09:00 | PETR_ITS ---
PROCEDURE INFORMATION: Exam: PET/CT Skull Base to Mid-thigh Exam date and time: 07/13/2025 2:10 PM Age: 75 years old Clinical indication: Condition or disease; Primary cancer: Breast cancer; Condition/disease: Lung nodule; Prior surgery; Surgery date: 6+ months; Surgery type: Left lumpectomy , open heart, stents; Additional info: R91.1 - solitary pulmonary nodule LABS AND CLINICAL REPORTS: Glucose: 74 mg/dl Treatment strategy for malignancy (PET staging): Restaging (PS) TECHNIQUE: Imaging protocol: Following at least four-hour fasting and following the injection of radiopharmaceutical, low dose CT images were obtained. Then, PET images were obtained. Attenuation corrected images were constructed using the CT scan. Fused images of PET and CT were reviewed. The standardized uptake values (SUV) reported below are maximum values within a region of interest, expressed in gm/ml. Exam includes orbital meatal line to mid-thigh. SUV normalization method: BodyWeight Radiopharmaceutical: 9.76 mCi F-18 FDG (Fluorodeoxyglucose), IV. Time of imaging post radiopharmaceutical administration: 46 minutes Injection site: right ac COMPARISON: CT lung screening [id number] 04/24/2025 7:49 AM FINDINGS: Brain: Visualized brain has normal physiologic uptake. Pharynx: No abnormal uptake. Larynx: No abnormal uptake. Thyroid: Non hypermetabolic 7 mm right thyroid lobe nodule. Lungs, pleura and trachea: Anterior lingular subpleural scarring, fibrosis and traction bronchiectasis/bronchiolectasis has associated mildly increased metabolic activity slightly above background, maximum SUV 2.5. Multiple bilateral splotchy/ill-defined pulmonary nodules do not demonstrate any significant increased FDG uptake, although are likely below PET resolution. Of note, some of the previously noted nodules have decreased in size or since resolved, including a previous 7 mm nodule in the posterior right upper lobe, now 3 mm (current series 202, image 88 compared to prior series 3, image 52), and a prior posterior lingular nodule measuring 4 mm, now 2 mm (current series 202, image 93 compared to prior series 3, image 16). Heart: Normal physiologic uptake. Artifactual uptake along the course of an atrial clip. There are mitral and aortic valve prostheses and dense coronary artery calcifications versus stents. Mediastinal space: No abnormal uptake. Liver: No abnormal uptake. Gallbladder and biliary ducts: No abnormal uptake. Pancreas: No abnormal uptake. Spleen: No abnormal uptake. Adrenal glands: No abnormal uptake. Kidneys and ureters: Normal physiologic uptake. Stomach and bowel: Focal increased FDG uptake within the anorectal junction/superior anal canal, maximum SUV 4.1. There is otherwise no abnormal uptake in the bowel and stomach. Vasculature: No abnormal uptake. Lymph nodes: Hypermetabolic hilar and mediastinal lymphadenopathy, maximum SUV 5.6 obtained from a 1.0 cm lymph node in the precarinal delia station. No abnormal lymphadenopathy within the head/neck, abdomen or pelvis. Skeleton: Increased uptake throughout the sternotomy central margin, likely inflammatory. Otherwise no abnormal uptake in the visualized axial and appendicular skeleton. Soft tissues: No hypermetabolic activity noted within either breast. METRICS: Mediastinal blood pool: Mean SUV of 1.9. Liver uptake: Mean SUV of 1.9. PET/PET skull to thigh INIT [id number] IMPRESSION: 1. Mild increased metabolic activity within an anterior lingular area of subpleural scarring, fibrosis and bronchiectasis/bronchiolectasis. There is no focal underlying lesion. This appearance may be seen if there is a history of prior radiation. Correlate with patient history. Otherwise, if no prior radiation, this may be due to chronic inflammatory fibrosis. 2. Multiple bilateral splotchy/ill-defined pulmonary nodules likely below PET resolution. There is no increased FDG uptake. Of note, some of the previously noted nodules have decreased in size compared to the prior study, and left such favored to be infectious/inflammatory. Continued surveillance is recommended. 3. Indeterminate hypermetabolic hilar and mediastinal lymphadenopathy. While this may be reactive, metastatic etiology is not definitively excluded. Otherwise, no abnormal lymphadenopathy within the head/neck, abdomen or pelvis. 4. No abnormal FDG uptake within the breasts. 5. Focal increased FDG uptake within the anorectal junction/superior anal canal. This may be physiologic and related to peristalsis. An underlying focal lesion is not excluded and assessment is limited on CT. Consider close attention on follow-up imaging or direct visualization.
== END 2025-07-29 23:59 | disposition home or self-care (01) ==
LOC: ONCMED 07-16 09:08
PROVIDERS: Internal Medicine; PCP Nurse Practitioner; Visit Provider Internal Medicine Medical Oncology
DX: R91.8 Other nonspecific abnormal finding of lung field; J98.4 Other disorders of lung; R59.0 Localized enlarged lymph nodes; R93.89 Abnormal findings on diagnostic imaging of other specified body structures; E04.1 Nontoxic single thyroid nodule; J84.10 Pulmonary fibrosis, unspecified; J47.9 Bronchiectasis, uncomplicated; I25.10 Atherosclerotic heart disease of native coronary artery without angina pectoris; R93.7 Abnormal findings on diagnostic imaging of other parts of musculoskeletal system; Z96.89 Presence of other specified functional implants; Z95.2 Presence of prosthetic heart valve; Z53.9 Procedure and treatment not carried out, unspecified reason
CPT/HCPCS: 36415; 78815; 80053; 80061; 82306; 82607; 83540; 83615; 84443; 85025; 99213; A9552

== ENCOUNTER → 2025-07-31 12:52 | Outpatient (BNVA) | payer MEDICARE, OTHER, SELFPAY | PROVIDERS: PCP Nurse Practitioner; Visit Provider Surgery | DX: Z12.11 Encounter for screening for malignant neoplasm of colon (principal) | CPT/HCPCS: 99024; 99204 ==

== ENCOUNTER 2025-08-22 07:43 | Day surgery (SDC) | payer MEDICARE, OTHER, SELFPAY ==
[2025-08-22 08:04] VITALS: BP 183/108; PULSE 87; RESP 18; TEMP 36.2; O2SAT 97; BMI 19.8
--- NOTE | 2025-08-22 08:16 | P.HPUD_ITS ---
Surgery/Procedure H&P Update DATE OF PROCEDURE: August 22, 2025 DATE H&P PERFORMED: 07/31/25 H&P UPDATE INFORMATION: I have reviewed H&P completed within last 30 days, I have examined patient prior to procedure, No changes to prior documentation, H&P is in [facility] EMR on date indicated and Risks and benefits of the procedure reviewed PLANNED PROCEDURE: Operation Date: 08/22/25 09:40 Proposed Procedures p Colonoscopy [id number] G0105 Z12.11(Not Applicable) - Leo Beard MD
--- NOTE | 2025-08-22 08:19 | ANES.PREANE2 ---
Pre-Anesthetic Assessment Height/Weight: Height 1.5 m Weight 44.452 kg Temp Pulse Resp BP Pulse Ox O2 Del Method 97.2 F L 87 18 183/108 97 Room Air 08/22/25 08:04 08/22/25 08:04 08/22/25 08:04 08/22/25 08:04 08/22/25 08:04 08/22/25 08:04 Preop Diagnosis: screening Operation Date: 08/22/25 09:40 Proposed Procedures p Colonoscopy [id number] G0105 Z12.11(Not Applicable) - Leo Beard MD Familial anesthetic complications: none Was Beta Enedina taken within 24 hours: Yes Was Clonidine taken within 24 hours: N/A Last intake: Intake Last Liquid Date 08/21/25 Last Liquid Time 20:00 Last Solid Date 08/20/25 Last Solid Time 20:00 Social Alcohol ( i dont have more than 3 ) and Tobacco <1ppd pack(s) per day Gummies and Smokes MJ Exam alert and oriented x 3 Airway Submandibular: within normal limits Cervical ROM: within normal limits Mallampati: Class I Dentition: false History/ROS No significant history except as noted Pulmonary Chronic Obstructive Pulmonary Disease (pt denies) and Sleep Apnea (per chart) L pulmonary nodule- per chart CV/HEM Coronary Artery Disease and Hypertension AVR, stents None reported Hepatic None reported GI None reported Metabolic Thyroid Disease [facility] None reported Neuropsych Anxiety Anesthetic Plan ASA status: 3 Anesthesia: Anesthesia Evaluation and MAC Risk of > 500 ml blood loss (7ml/kg in children): No Medications/Allergies Home Medications ?Medication ?Instructions ?Recorded ?Confirmed ?Last Taken ?Type nitroglycerin 0.4 mg sublingual 0.4 mg sublingual Q5M PRN Chest 09/24/20 08/20/25 08/21/25 Rx tablet Pain 30 days #30 tabs amlodipine 10 mg tablet 10 mg PO DAILY 90 days #90 tabs 09/25/24 08/20/25 08/21/25 Rx atorvastatin 40 mg tablet 40 mg PO .in evening #90 tabs 07/03/25 08/20/25 08/21/25 Rx carvedilol 6.25 mg tablet 6.25 mg PO BID #180 tabs 07/03/25 08/20/25 08/21/25 Rx valsartan 320 1 tab PO DAILY #90 tabs 07/03/25 08/20/25 08/21/25 Rx mg-hydrochlorothiazide 12.5 mg tablet (Diovan HCT) venlafaxine 37.5 mg 37.5 mg PO DAILY #90 caps 07/03/25 08/20/25 08/21/25 Rx capsule,extended release 24 hr (Effexor XR) ferrous sulfate 325 mg (65 mg 325 mg PO QDAY #30 tabs 07/12/25 08/20/25 08/21/25 Rx iron) tablet,delayed release Allergies Allergy/AdvReac Type Severity Reaction Status Date / Time bupropion (From Wellbutrin) Allergy ADR-Nausea Verified 08/22/25 08:01 Current Medications Generic Name Dose Route Start Last Admin Trade Name Freq PRN Reason Stop Dose Admin Sodium Chloride 1,000 mls @ 15 mls/hr 08/22/25 07:52 08/22/25 08:12 Sodium Chloride 0.9% IV 08/23/25 07:51 15 mls/hr .Q24H PRN Administration COLONOSCOPY FLUIDS PFSH Anesthesia Medical History Vascular dementia with anxiety Breast cancer COPD (chronic obstructive pulmonary disease) Non-ST elevation myocardial infarction (NSTEMI) Troponin level elevated Atherosclerosis of coronary artery of [place] heart without angina pectoris Aortic valve stenosis Pulmonary hypertension Cardiomyopathy due to hypertension, with heart failure Severe aortic valve stenosis History of smoking 30 or more pack years Osteoporosis, post-menopausal Situational anxiety Benign essential hypertension Dyslipidemia Surgical History (Updated 07/31/25 @ 13:[address]) Hx of aortic valve replacement [facility] December 2021 History of PTCA History of laparoscopy To look at tubes in [place] Family History Mother Hypertension Father Hypertension Brother CAD (coronary artery disease) Cancer Denies family history of Diabetes Clotting disorder Dementia Chronic kidney disease (CKD) Suicide Anesthesia complication Bleeding disorder Lung disease Stroke Social History (Updated 07/31/25 @ 13:[address]) Smoking and tobacco/nicotine status: current some day tobacco/nicotine user cigarettes Quit status (tobacco/nicotine): has tried quititng Second hand smoke exposure: No Alcohol intake: current Alcohol type: beer Substance/Drug Use: never Adopted: No Caregiver/support person: No Lives independently: Yes Household members: spouse Housing: House Marital status: service: No Current occupational status: retired Do you think of yourself as: Straight/Heterosexual Current gender identity: Female Data Anesthesia Cardiac Studies: Echocardiogram 10/18/24 Echocardiogram Ultrasound 02/13/21 Transesophageal Echocardiogram 10/16/22 Sestamibi Stress Test (Cardiology) 02/14/21
[2025-08-22 09:16] VITALS: BP 126/87; PULSE 59; RESP 18; TEMP 36.4; O2SAT 98
--- NOTE | 2025-08-22 09:18 | ANE.PACU2 ---
Inpatient post-anesthesia follow up: Airway intact: Yes Vital signs: Temperature 97.6 F Pulse Rate 59 Respiratory Rate 18 Blood Pressure 126/87 Pulse Oximetry 98 Oxygen Delivery Me thod Room Air Oxygen Flow Rate Fraction of Inspir ed Oxygen Hydration adequate: Yes Nausea and vomiting: No Pain level: 1 Mental status: Baseline
[2025-08-22 09:27] VITALS: BP 137/87; PULSE 72; RESP 18; O2SAT 97
== END 2025-08-22 09:33 | disposition home or self-care (01) ==
PROVIDERS: PCP Nurse Practitioner; Visit Provider Surgery
PROC: 0DJD8ZZ Inspection of Lower Intestinal Tract, Via Natural or Artificial Opening Endoscopic (ICD-10-PCS; CPT 45378; principal; 2025-08-22 09:40)
DX: Z12.11 Encounter for screening for malignant neoplasm of colon (principal); K63.5 Polyp of colon; K62.1 Rectal polyp; J44.9 Chronic obstructive pulmonary disease, unspecified; G47.30 Sleep apnea, unspecified; I25.2 Old myocardial infarction; I25.10 Atherosclerotic heart disease of native coronary artery without angina pectoris; I10 Essential (primary) hypertension; E78.5 Hyperlipidemia, unspecified; F41.9 Anxiety disorder, unspecified; F01.50 Vascular dementia, unspecified severity, without behavioral disturbance, psychotic disturbance, mood disturbance, and anxiety; F17.210 Nicotine dependence, cigarettes, uncomplicated; Z79.82 Long term (current) use of aspirin
CPT/HCPCS: 45380; 88305; J2704; J7030

== ENCOUNTER → 2025-09-11 13:35 | Outpatient (BNVA) | payer MEDICARE, OTHER, SELFPAY | PROVIDERS: PCP Nurse Practitioner; Visit Provider Surgery | DX: Z09 Encounter for follow-up examination after completed treatment for conditions other than malignant neoplasm (principal); R03.0 Elevated blood-pressure reading, without diagnosis of hypertension | CPT/HCPCS: 99213 ==

== ENCOUNTER → 2025-10-01 11:55 | Outpatient (BNVA) | payer MEDICARE, OTHER, SELFPAY | PROVIDERS: PCP Nurse Practitioner; Visit Provider Internal Medicine Cardiovascular Disease | DX: I25.10 Atherosclerotic heart disease of native coronary artery without angina pectoris (principal); I11.0 Hypertensive heart disease with heart failure; I50.32 Chronic diastolic (congestive) heart failure; I34.0 Nonrheumatic mitral (valve) insufficiency; F03.90 Unspecified dementia, unspecified severity, without behavioral disturbance, psychotic disturbance, mood disturbance, and anxiety; Z95.2 Presence of prosthetic heart valve; F17.210 Nicotine dependence, cigarettes, uncomplicated; I25.2 Old myocardial infarction; R07.9 Chest pain, unspecified | CPT/HCPCS: 93005; 99214 ==

== ENCOUNTER 2025-10-31 11:00 | Oncology outpatient (recurring) (ONCR) | payer MEDICARE, OTHER, SELFPAY ==
[2025-10-31 11:28] LABS: Hematocrit 41.6 % (36-47); Hemoglobin 13.90 g/dL (11.27-16.99); Mean Corpuscular HGB Conc 33.4 g/dL (30-55); Mean Corpuscular Hemoglobin 31.1 pg (27-33); Mean Corpuscular Volume 93.1 fl (85-98); Nucleated Red Blood Cells % 0 %; Platelet Count 304 10^3/cmm (157-399); Red Blood Count 4.47 10^6/uL (3.85-5.65); White Blood Count 7.43 10^3/uL (3.29-11.43)
[2025-10-31 11:58] LABS: Alanine Aminotransferase 14 U/L (0-33); Albumin Level 4.3 g/dL (3.5-5.2); Alkaline Phosphatase 76 U/L (35-105); Anion Gap 16.2 (5-19); Aspartate Amino Transferase 18 U/L (0-32); Blood Urea Nitrogen 14 mg/dL (8-23); Calcium 9.5 mg/dL (8.5-10.5); Carbon Dioxide 26 mmol/L (22-29); Chloride 97 mmol/L (98-107); Ferritin 223 ng/mL (15-150); Globulin 4.0 g/dL (1.3-4.6); Glucose 104 mg/dL (65-115); Iron 110 ug/dL (37-145); Osmolality Calculated 281 mOsm/kg (285-295); Potassium 4.2 mmol/L (3.5-5.1); Sodium 135 mmol/L (136-145); Total Iron Binding Capacity 307 mcg/dl; Total Protein 8.3 g/dL (6.6-8.7); Unsaturated Iron Binding 197 ug/dL (112-347)
[2025-10-31 12:12] LABS: Vitamin B12 364 pg/mL (232-1245)
== END 2025-11-28 23:59 | disposition home or self-care (01) ==
LOC: ONCMED 11:00
PROVIDERS: Internal Medicine; Nurse Practitioner; PCP Nurse Practitioner; Visit Provider Internal Medicine Medical Oncology
DX: Z08 Encounter for follow-up examination after completed treatment for malignant neoplasm (principal); Z85.3 Personal history of malignant neoplasm of breast; E55.9 Vitamin D deficiency, unspecified; E61.1 Iron deficiency; I50.32 Chronic diastolic (congestive) heart failure; F17.210 Nicotine dependence, cigarettes, uncomplicated; R03.0 Elevated blood-pressure reading, without diagnosis of hypertension; M85.80 Other specified disorders of bone density and structure, unspecified site; Z92.3 Personal history of irradiation; Z79.899 Other long term (current) drug therapy
CPT/HCPCS: 36415; 80053; 82306; 82607; 82728; 82746; 83010; 83540; 83550; 83615; 85025; 85045; 99213